=== PATIENT | female | born 1940 | race Caucasian/White ===

== ENCOUNTER → 2017-02-14 | Outpatient (CLI) | payer MEDICARE, OTHER ==
--- NOTE | 2017-02-15 08:48 | US ---
EXAMINATION TYPE: US pelvis complete transvag DATE OF EXAM: 02/14/2017 5:23 PM COMPARISON: Previous study dated 09/10/2014. CLINICAL HISTORY: R10.2 Pelvic Pain. Left pelvic pain TECHNIQUE: Transvaginal (TV) and Transabdominal (TA) Date of LMP: unknown EXAM MEASUREMENTS: Uterus: 5.9 x 3.4 x 3.8 cm Endometrial Stripe: 0.4 cm Right Ovary: 1.2 x 1.5 x 0.5 cm Left Ovary: 2.0 x 1.7 x 1.0 cm TECHNOLOGIST IMPRESSION: 1. Uterus: Anteverted heterogeneous, calcifications noted 2. Endometrium: small amount of fluid noted within 3. Right Ovary: appears wnl, limited due to overlying bowel 4. Left Ovary: appears wnl 5. Bilateral Adnexa: wnl 6. Posterior cul-de-sac: wnl IMPRESSION: HETEROGENOUS UTERUS MAY REPRESENT ADENOMYOSIS.
== END | disposition home or self-care (01) ==
LOC: RADUSWWP 16:24
PROVIDERS: ATTEND Obstetrics & Gynecology
DX: N85.8 Other specified noninflammatory disorders of uterus (principal)
CPT/HCPCS: 76830; 76856

== ENCOUNTER → 2018-04-03 | Outpatient (CLI) | payer MEDICARE, OTHER ==
--- NOTE | 2018-04-04 09:20 | MM ---
Reason for exam: screening (asymptomatic). Last mammogram was performed 5 years and 2 months ago. History: Family history of breast cancer in paternal aunt. Physical Findings: A clinical breast exam by your physician is recommended on an annual basis and results should be correlated with mammographic findings. MG 3D Screening Mammo W/Cad Bilateral CC and MLO view(s) were taken. Prior study comparison: January 23, 2013, left diagnostic mammogram w/CAD. July 22, 2012, bilateral digital screening mammo w/CAD. Stable benign calcifications. There is chronic nodularity in the left breast. No significant changes when compared with prior studies. ASSESSMENT: Benign, BI-RAD 2 RECOMMENDATION: Routine screening mammogram of both breasts in 1 year.
== END | disposition home or self-care (01) ==
LOC: RADMAMWWP 07:06
PROVIDERS: ATTEND Pediatrics
DX: Z12.31 Encounter for screening mammogram for malignant neoplasm of breast (principal)
CPT/HCPCS: 77063; 77067

== ENCOUNTER → 2018-05-06 | Outpatient (CLI) | payer MEDICARE, OTHER ==
--- NOTE | 2018-05-06 10:49 | XR ---
EXAMINATION TYPE: XR ribs LT DATE OF EXAM: 05/06/2018 COMPARISON: NONE HISTORY: Left-sided rib pain TECHNIQUE: 4 views submitted FINDINGS: Arthropathy of the AC joint degenerative and hypertrophic change the spine. Vascular calcif ications noted. Rib cage is intact. IMPRESSION: No acute displaced rib fracture.
== END | disposition home or self-care (01) ==
LOC: RADXRMAIN 10:16
PROVIDERS: ATTEND Nurse Practitioner Family
DX: R07.81 Pleurodynia (principal)

== ENCOUNTER 2018-05-09 10:14 | Day surgery (SDC) | payer MEDICARE, OTHER ==
[2018-05-07 10:58] VITALS: BMI 35.0
[~2018-05-09 10:14] MED LIST: LACTATED RINGERS 1,000 ML IV SCH
[2018-05-09 10:48] VITALS: TEMP 96.9
[2018-05-09] MEDS ORDERED: LIDOCAINE 1% 20 ML VIAL (10MG/ML) FOR IV START INTRADERMA ONE (10:52)
[2018-05-09] MEDS ORDERED: PROPOFOL 10 MG/ML 20 ML VIAL IV ONE (11:19)
[2018-05-09] MEDS ORDERED: MIDAZOLAM 2 MG/2 ML VIAL ONE (11:19)
--- NOTE | 2018-05-09 11:49 | P.PCN ---
Date of Procedure: 05/09/18 Procedure(s) Performed: BRIEF HISTORY: Patient is a 77-year-old pleasant white female, scheduled for an elective colonoscopy as a part of evaluation of prior history of colon polyps. Last colonoscopy was 6 years ago. PROCEDURE PERFORMED: Colonoscopy with snare polypectomy PREOPERATIVE DIAGNOSIS: History of colon polyps. IV sedation per Anesthesia. PROCEDURE: After informed consent was obtained, the patient, was brought into the endoscopy unit. IV sedation was administered by Anesthesia under continuous monitoring. Digital rectal examination was normal. Initially the Olympus CF- 160 flexible video colonoscope was then inserted in the rectum, gradually advanced into the cecum without any difficulty. Careful examination was performed as the scope was gradually being withdrawn. Ileocecal valve and the appendiceal orifice were visualized and appeared normal. Prep was fair. In the base of the cecum there was a 5 mm sessile polyp removed by snare polypectomy. Mucosa of the cecum, ascending colon, transverse colon, descending colon, sigmoid colon, and rectum appeared normal. Retroflexion was performed in the rectum and no lesions were seen. The patient tolerated the procedure well. IMPRESSION: 5 mm sessile cecal polyp status post polypectomy Rest of the colon appeared normal RECOMMENDATIONS: Findings of this examination were discussed with the patient as well as her family. She was advised to follow with the biopsy results..
[2018-05-09 11:56] VITALS: RESP 18
[2018-05-09 12:29] VITALS: BP 118/77; PULSE 78
== END 2018-05-09 12:45 | disposition home or self-care (01) ==
LOC: ORWHC2ENDO 10:14
PROVIDERS: ATTEND Internal Medicine Gastroenterology
DX: Z12.11 Encounter for screening for malignant neoplasm of colon (principal); Z86.010 Personal history of colon polyps; K63.5 Polyp of colon; I25.10 Atherosclerotic heart disease of native coronary artery without angina pectoris; I10 Essential (primary) hypertension; E78.5 Hyperlipidemia, unspecified; I25.2 Old myocardial infarction; J44.9 Chronic obstructive pulmonary disease, unspecified; F17.200 Nicotine dependence, unspecified, uncomplicated; Z79.899 Other long term (current) drug therapy
CPT/HCPCS: 88305; 45385; J2250; J2704

== ENCOUNTER → 2019-02-13 | Outpatient (CLI) | payer MEDICARE, OTHER ==
--- NOTE | 2019-02-13 10:10 | XR ---
EXAMINATION TYPE: XR chest 2V DATE OF EXAM: 02/13/2019 COMPARISON: 07/05/2016 TECHNIQUE: PA and lateral views submitted. HISTORY: Headache FINDINGS: The lungs are clear and there is no pneumothorax, pleural effusion, or focal pneumonia. Postsurgica l change right shoulder. Arthropathy of the left shoulder. Biapical pleural thickening. Hypertrophic and degenerative change of the spine. Hyperinflation suggests COPD. No overt failure. IMPRESSION: 1. No acute process.
[2019-02-13 10:22] LABS: Reticulocyte % 1.4 % (0.5-2.0)
[2019-02-13 16:40] LABS: Iron Saturation 12.64 (12.00-45.00)
[2019-02-13 16:49] LABS: Folate, Serum 5.9 ng/mL
== END | disposition home or self-care (01) ==
LOC: LABWHC1 09:24
PROVIDERS: ATTEND Physician Assistant
DX: D64.9 Anemia, unspecified (principal)
CPT/HCPCS: 36415; 71046; 82607; 82728; 82746; 83540; 83550; 85045

== ENCOUNTER 2019-10-04 12:16 | Inpatient (IN) | payer MEDICARE, OTHER ==
[2019-10-04] MEDS ORDERED: NITROGLYCERIN OINT 1 INCH/GM PACKET TOPICAL STA (12:17)
[2019-10-04] MEDS ORDERED: HEPARIN SODIUM,PORCINE 5,000 UNIT/ML 1 ML VIAL IV STA (12:17)
[2019-10-04] MEDS ORDERED: ATORVASTATIN 80 MG TAB PO STA (12:18)
--- NOTE | 2019-10-04 12:24 | ED ---
General Adult HPI - General Stated complaint: Stemi Time Seen by Provider: 10/04/19 12:16 Source: RN notes reviewed - History of Present Illness Initial comments: This is an 79-year-old female presents to the emergency department because of chest pain. Patient also states she has a long history of smoking as well as high blood pressure. Patient states the pain started about 2 hours prior to arrival. Patient states she received 2 nitroglycerin in route and took her pain away. EMS states that EKG was indicative of an ST segment elevation and they did send me the EKG. Patient currently denies any chest pain. Patient states the pain never did radiate anywhere. Patient denied any shortness of breath today. Patient denies any diaphoretic or nauseated. Patient states she had a heart attack back in 1987 but no stent placement or angioplasty that she knows of. Patient denies any abdominal pain patient's nausea vomiting diarrhea. Patient denies any headache patient denies numbness weakness. Patient denies any lightheadedness or dizziness. Patient currently has no complaints. - Related Data Home Medications Medication Instructions Recorded Confirmed Albuterol Nebulized [Ventolin 1 applic INHALATION DIRECTED PRN 10/05/16 05/09/18 Nebulized] Alendronate Sodium [Fosamax] 70 mg PO MO 10/05/16 05/09/18 Baclofen 10 mg PO BID 10/05/16 05/09/18 Cholecalciferol [Vitamin D3] 1,000 unit PO DAILY 10/05/16 05/09/18 Diclofenac Sodium Gel [Voltaren 1 applic TOPICAL DIRECTED PRN 10/05/16 05/09/18 Gel] Fluticasone Propionate 2 spr EA NOSTRIL DAILY 10/05/16 05/09/18 Gabapentin [Neurontin] 400 mg PO TID 10/05/16 05/09/18 Lisinopril 20 mg PO QAM 10/05/16 05/09/18 Loratadine [Claritin] 10 mg PO DAILY 10/05/16 05/09/18 Metoprolol Succinate [Toprol XL] 25 mg PO QAM 10/05/16 05/09/18 Montelukast [Singulair] 10 mg PO HS 10/05/16 05/09/18 Tiotropium 18 Mcg/Puff [Spiriva] 1 puff INHALATION HS 10/05/16 05/09/18 Allergies Allergy/AdvReac Type Severity Reaction Status Date / Time No Known Allergies Allergy Verified 10/04/19 12:34 Review of Systems ROS Statement: Those systems with pertinent positive or pertinent negative responses have been documented in the HPI. ROS Other: All systems not noted in ROS Statement are negative. Past Medical History Past Medical History: Asthma, COPD, Hypertension, Myocardial Infarction ([place]), Osteoarthritis (OA) Additional Past Medical History / Comment(s): History of mild stroke in 1987; hx of osteoporosis, back pain Last Myocardial Infarction Date:: 1987 History of Any Multi-Drug Resistant Organisms: None Reported Past Surgical History: Appendectomy, Orthopedic Surgery, Tubal Ligation Additional Past Surgical History / Comment(s): rt rotator cuff, [place] cataracts Past Anesthesia/Blood Transfusion Reactions: No Reported Reaction Smoking Status: Current some day smoker - Past Family History Sister(s) Family Medical History: Cancer Additional Family Medical History / Comment(s): ovarian Brother(s) Family Medical History: Deep Vein Thrombosis (DVT) General Exam - General Exam Comments Initial Comments: GENERAL: Patient is well-developed and well-nourished. Patient is nontoxic and well- hydrated and is in no acute distress. ENT: Neck is soft and supple. No significant lymphadenopathy is noted. Oropharynx is clear. Moist mucous membranes. Neck has full range of motion without eliciting any pain. EYES: The sclera were anicteric and conjunctiva were pink and moist. Extraocular movements were intact and pupils were equal round and reactive to light. Eyelids were unremarkable. PULMONARY: Unlabored respirations. Good breath sounds bilaterally. No audible rales rhonchi or wheezing was noted. CARDIOVASCULAR: There is a regular rate and rhythm without any murmurs gallops or rubs. ABDOMEN: Soft and nontender with normal bowel sounds. SKIN: Skin is clear with no lesions or rashes and otherwise unremarkable. NEUROLOGIC: Patient is alert and oriented x3. Cranial nerves II through XII are grossly intact. Motor and sensory are also intact. Normal speech, volume and content. Symmetrical smile. MUSCULOSKELETAL: Normal extremities with adequate strength and full range of motion. No lower extremity swelling or edema. No calf tenderness. LYMPHATICS: No significant lymphadenopathy is noted PSYCHIATRIC: Normal psychiatric evaluation. Course Vital Signs 10/04/19 10/04/19 10/04/19 12:19 12:24 12:33 Temperature 97.9 F Pulse Rate 77 74 Respiratory 18 18 20 Rate Blood Pressure 110/84 111/89 O2 Sat by Pulse 98 100 Oximetry 10/04/19 10/04/19 10/04/19 12:38 12:42 12:46 Temperature Pulse Rate 71 73 72 Respiratory 20 22 20 Rate Blood Pressure 187/97 173/99 155/117 O2 Sat by Pulse 99 99 99 Oximetry 10/04/19 12:50 Temperature Pulse Rate 67 Respiratory 18 Rate Blood Pressure 167/92 O2 Sat by Pulse 99 Oximetry Medical Decision Making - Medical Decision Making EKG shows normal sinus rhythm at 75 bpm DC interval is 130 QRS is 74 QT interval 380 QTC is 424. Patient has ST segment elevation in the inferior leads II, III, and F aVF and ST segment depression in leads V1 and V2 as well as 1 and aVL. I called a STEMI prior to the patient's arrival because I received a EKG was consistent with an SC. I spoke with Dr. Holliday and he stated he would come down and see the patient and take the patient to the Screening Nurse. When patient arrived I placed the patient on heparin. The patient Lipitor and gave the patient some Nitropaste at this time because she was pain-free. I spoke with Dr. Garcia agreed to admit the patient admitted the patient wrote admitting orders I consulted - Lab Data Result diagrams: 10/04/19 12:35 Critical Care Time Critical Care Time: Yes Total Critical Care Time: 35 Disposition Clinical Impression: STEMI (ST elevation myocardial infarction) Disposition: ADMITTED IP TO THIS [facility] Time of Disposition: 12:52
[2019-10-04] MEDS ORDERED: SODIUM CHLORIDE 0.9% 500 ML 500 ML IV ONE (12:37)
--- NOTE | 2019-10-04 12:47 | XR ---
EXAMINATION TYPE: XR chest 1V portable DATE OF EXAM: 10/04/2019 HISTORY: Chest Pain. REFERENCE: Previous study dated 02/13/2019. FINDINGS: The heart is enlarged. Lungs are clear. Pleural spaces are clear. Note is made of previous rotator cuff surgery on the right shoulder. IMPRESSION: MILD CARDIOMEGALY.
[2019-10-04 12:48] LABS: Basophils # (A) 0.1 k/uL (0-0.2); Basophils % (A) 1 %; Eosinophils # (A) 0.2 k/uL (0-0.7); Eosinophils % (A) 2 %; HCT 31.5 % (34.0-46.0); HGB 10.2 gm/dL (11.4-16.0); Hypochromasia Slight; Lymphocytes # (A) 1.7 k/uL (1.0-4.8); Lymphocytes % (A) 19 %; MCH 30.6 pg (25.0-35.0); MCHC 32.3 g/dL (31.0-37.0); MCV 94.7 fL (80.0-100.0); Mean Platelet Volume 5.4; Monocytes # (A) 0.5 k/uL (0-1.0); Monocytes % (A) 6 %; Neutrophils # (A) 6.3 k/uL (1.3-7.7); Neutrophils % (A) 70 %; Platelet Count 258 k/uL (150-450); RBC 3.33 m/uL (3.80-5.40); RDW 14.5 % (11.5-15.5)
[2019-10-04 13:00] LABS: ALT 23 U/L (9-52); AST 22 U/L (14-36); African American GFR (CKD) >90 (>60 ml/min/1.73 sqM); Albumin 3.7 g/dL (3.5-5.0); Alkaline Phosphatase 41 U/L (38-126); Anion Gap 7 mmol/L; Blood Urea Nitrogen 17 mg/dL (7-17); Calcium 9.1 mg/dL (8.4-10.2); Carbon Dioxide 23 mmol/L (22-30); Chloride 110 mmol/L (98-107); Glucose 132 mg/dL (74-99); Potassium 4.1 mmol/L (3.5-5.1); Sodium 140 mmol/L (137-145); Total Bilirubin 0.5 mg/dL (0.2-1.3); Total Protein 6.3 g/dL (6.3-8.2)
[2019-10-04 13:02] LABS: INR 0.9 (<1.2); Prothrombin Time 9.8 sec (9.0-12.0)
[2019-10-04 13:03] LABS: Partial Thromboplastin Time 21.4 sec (22.0-30.0)
[2019-10-04 13:17] LABS: Troponin I 0.032 ng/mL (0.000-0.034)
[2019-10-04] MEDS ORDERED: MIDAZOLAM 2 MG/2 ML VIAL IVP ONE (13:31)
[2019-10-04] MEDS ORDERED: LIDOCAINE 1% INJ 10MG/ML (20 ML MDV) SQ ONE (13:31)
[2019-10-04] MEDS ORDERED: VERAPAMIL SYRINGE (5 MG/10 ML) INTRAARTER ONE (13:32)
[2019-10-04] MEDS ORDERED: SODIUM CHLORIDE 0.9% 1,000 ML IV ONE (13:38)
[2019-10-04] MEDS ORDERED: TICAGRELOR 90 MG TAB ONE (13:45)
[2019-10-04] MEDS ORDERED: BIVALIRUDIN BOLUS 250 MG/50 ML IV ONE (13:47)
[2019-10-04] MEDS ORDERED: BIVALIRUDIN 250 MG in SODIUM CHLORIDE 0.9% 50 ML IV ONE (13:47)
[2019-10-04] MEDS ORDERED: IOPAMIDOL-370 100ML BTL INJ ONE ×2 (13:50→14:02)
[2019-10-04] MEDS ORDERED: NITROGLYCERIN 1000MCG/10ML SYRINGE INTRACORON ONE (13:53)
[2019-10-04] MEDS ORDERED: TICAGRELOR 90 MG TAB PO ONE (14:00)
[2019-10-04] MEDS ORDERED: ATROPINE SULFATE 0.1 MG/ML 10ML SYRINGE IV PRN (14:05)
[2019-10-04] MEDS ORDERED: RX INFO: IV CONTRAST WAS GIVEN 1 EACH MISC MISCELLANE PRN (14:05)
[2019-10-04] MEDS ORDERED: MAG HYDROX/AL HYDROX/SIMETH 30 ML CUP PO PRN (14:05)
[2019-10-04] MEDS ORDERED: NITROGLYCERIN SL TABS 0.4 MG TAB SUBLINGUAL PRN (14:05)
[2019-10-04 14:37] LABS: Glucose,Whole Blood 114 mg/dL (75-99)
--- NOTE | 2019-10-04 14:37 | CONS ---
CONSULTATION This is an 79-year-old elderly lady who has history of hypertension, no diabetes, smokes about 1 pack a day or more, takes Toprol-XL and Lipitor. She came into the hospital brought in by EMS after we received a phone call from [facility] saying patient had chest pain with inferior ST elevation. The patient took about 50 minutes to arrive here. In the meantime we were doing another procedure and therefore she was kept in the ER for 10 to 15 additional minutes. Upon arrival her pain was gone, ST-segment elevation has improved. She received sublingual nitroglycerin. She is pain-free at the time of my evaluation. Apparently she was not doing much physical activity when she experienced pressure in the chest when she was sitting down that seemed to rest and remain constant for 20-30 minutes and then they called EMS. She does smoke, has hypertension, but no other risk factors. She is pain free at this time. Hemodynamically stable. PAST MEDICAL HISTORY: 1. Hypertension. 2. Hyperlipidemia. 3. Smoking and COPD. MEDICATIONS: Lipitor and Toprol, dose unclear. ALLERGIES: No known drug allergies. PHYSICAL EXAMINATION: Blood pressure is 150/90, pulse rate is 80 per minute, regular HEENT unremarkable. Fundus was not examined by me. Neck is supple. No JVD. I do not hear a carotid bruit. There is no thyromegaly. Heart exam reveals S1, S2 heard normally. No significant murmurs. Lungs are clear. Abdomen is soft, nontender. Lower extremities reveal palpable pulses. No edema. Central nervous system is normal. EKG revealed a sinus mechanism with ST elevation in leads 2, 3 and AVF. IMPRESSION: 1. Acute inferior ST-elevation myocardial infarction. 2. Smoking and chronic obstructive pulmonary disease. 3. Hypertension. 4. Hyperlipidemia. RECOMMENDATION: I advised prompt cardiac cath and PCI and proceeded to perform procedure expeditiously. MMODL / IJN: [id number] /
--- NOTE | 2019-10-04 15:13 | CC ---
CARDIAC CATHETERIZATION REPORT DATE OF SERVICE: 10/04/2019. PROCEDURE: 1. Coronary angiography. 2. PTCA and stenting of a totally occluded proximal RCA performed in the setting of an acute inferior ST-elevation NC with reperfusion accomplished in 87 minutes. PERFORMED BY: Dr. Preet Holliday. SEDATION: Moderate conscious sedation time was 29 minutes. Patient was administered Versed. Oxygen saturation, hemodynamics and EKG were monitored closely. CLINICAL INFORMATION: Mrs. Sonja Lizarraga is an 79-year-old lady with a history of smoking, hypertension, hyperlipidemia, came into the hospital brought in by EMS with chest pain and inferior ST elevation. She was seen by me in the laboratory specialist and advised prompt cardiac catheterization. PROCEDURE NOTE: Under local anesthesia and strict aseptic precautions, a 6-Cypriot introducer was placed in the right radial artery. Using a JL3.5 catheter, I performed selective coronary angiography of the left coronary system. I then used a JR4 6-Cypriot guide catheter to cannulate the RCA. I then proceeded to perform intervention of the totally occluded RCA in the same setting. I did not check LV pressures. I did not do an LV-gram. The patient received Angiomax bolus and infusion as per protocol. She also received 180 mg of Brilinta. TRAIN PLANNER PROCEDURE DETAILS: A 6-Cypriot right Luisito guide catheter was used to cannulate the right coronary artery. I used a run-through wire to cross the lesion. Predilatation was performed with a 2.5 caliber 12 mm Trek balloon. There was a small flap at the distal end of the lesion or the thrombus. The entire area was then stented using a 2.5 caliber 23 mm long Xience stent at 10 atmospheres. Excellent angiographic result without complication was achieved. The sheath was taken out and TR band applied as per protocol with good hemostasis and saturation of the fingers of the right hand was 95%. Results were discussed with the patient and her friend and she was sent to the room in a stable condition. CORONARY ANGIOGRAPHY FINDINGS: LEFT MAIN CORONARY ARTERY: This is a patent vessel. No significant disease. Large caliber, bifurcates into LAD and circumflex. LEFT ANTERIOR DESCENDING CORONARY ARTERY: Good caliber vessel extends along the anterior wall. It gives off a large diagonal branch proximally. Then there is a long area of disease of up to 70-80 percent, significant, but not critical and then the vessel runs all the way to the apex and curves over the apex to supply the inferoapical portion of left ventricle. The major diagonal branch comes off from the LAD and supplies a sizable amount of myocardium. It is very tortuous and a good caliber and good distribution vessel. The stenosis in the LAD is located right after the origin of the diagonal branch. LEFT POSTERIOR CIRCUMFLEX CORONARY ARTERY: Technically a dominant vessel, gives off a large obtuse marginal proximally than distally gives off a large PDA branch which feeds off of a lot of septal branches. No significant disease in the circumflex dominant system. RIGHT CORONARY ARTERY: This is a nondominant vessel, totally occluded, seen as a stump without much antegrade flow. FINAL IMPRESSION: This patient has a left dominant system, total occlusion of the RCA. PDA branch comes off from circumflex. LAD has a 75% mid lesion after major diagonal branch in a moderately calcified area. The circumflex is dominant disease-free. RCA is totally occluded. RECOMMENDATION: I performed PCI of RCA in the same setting with excellent angiographic result. PCI of the LAD will be performed in the next couple of weeks. The patient was advised smoking cessation, risk factor modification and dual antiplatelet therapy. MMODL / IJN: [id number] /
[2019-10-04] MEDS: SODIUM CHLORIDE 0.9% 1,000 ML IV SCH (18:35)
[2019-10-04] MEDS: METOPROLOL TARTRATE 25 MG TAB PO SCH (20:35)
[2019-10-04] MEDS: ZOLPIDEM 5 MG TAB PO PRN (20:36)
[2019-10-04] MEDS: LISINOPRIL 10 MG TAB PO SCH (20:36)
--- NOTE | 2019-10-04 21:32 | P.HPIM ---
History of Present Illness H&P Date: 10/04/19 Chief Complaint: Chest Pain History of presenting complaint: This is a very pleasant 79-year-old patient of Dr. Heriberto Thayer. Chronic stable medical conditions include COPD, hypertension, osteoarthritis, osteoporosis. Patient sitting upon a chair and started feeling indigestion. It did not go away and progressed to get worse. Started having nausea. [place] like a chest p ressure precordial area. No dizziness no lightheadedness. Did not radiate to the neck or arm. Patient did precortisol. Symptoms would last for about 30 minutes she told her fianc. To take her to the hospital. Patient ruled for an acute ST elevation [place] of the inferior wall. Taken to the cardiac catheterization lab. Had a successful electrical she stated to the RCA. Currently admitted to the ICU. Currently chest pain-free Review of systems: GEN.: Tired EYES: None HEENT: None NECK: None RESPIRATORY: Occasional wheezing CARDIOVASCULAR: Has about GASTROINTESTINAL: None GENITOURINARY: None MUSCULOSKELETAL: None LYMPHATICS: None HEMATOLOGICAL: None PSYCHIATRY: None NEUROLOGICAL: None Social history: Smokes a pack a day for over 60 years. Lives with her harvey. Physical examination: VITAL SIGNS: 97.9, 77, 18, 110/84, 98% room air GENERAL: BMI 32.1, laying in bed, awake not in distress. EYES: Pupils equal. Conjunctiva normal. HEENT: External appearance of nose and ears normal, oral cavity grossly normal. NECK: JVD not raised; masses not palpable. HEART: First and second heart sounds are normal; no edema. LUNGS: Respiratory rate normal; decreased breath sounds mild wheezing. ABDOMEN: Soft, nontender, liver spleen not palpable, no masses palpable. PSYCH: Alert and oriented x3; mood and affect normal. NEUROLOGICAL: Cranial nerves grossly intact; no facial asymmetry, power and sensation grossly intact. LYMPHATICS: No lymph nodes palpable in the axilla and neck INVESTIGATIONS, reviewed in the clinical context: White count 9 hemoglobin 10.2 platelets 258 potassium 4.1 creatinine 0.61 Troponin I 0.032, crit 5.1 EKG tracing personally reviewed by me-ST elevation in inferior leads with reciprocal changes in anterior leads Chest x-ray film personally reviewed by me-up at country exposed possible pulmonary edema Assessment: -Acute ST elevation acute myocardial infarction inferior wall -Urgent cardiac catheterization with stent to the RCA -Obesity BMI 32.1 -COPD in a current smoker -Chronic nicotine dependence patient is a cigarette smoker -Essential hypertension -Primary osteoarthritis Plan: Patient is currently on aspirin and Zestril Lopressor Brilinta. Home medications resumed. Care was discussed with the patient. Question were answered. Smoke cessation counseling: This was done with the patient. Nicotine patch is being given. More than 3 minutes was spent for this Past Medical History Past Medical History: Asthma, COPD, Hypertension, Myocardial Infarction ([place]), Osteoarthritis (OA) Additional Past Medical History / Comment(s): History of mild stroke in 1987; hx of osteoporosis, back pain Last Myocardial Infarction Date:: 1987 History of Any Multi-Drug Resistant Organisms: None Reported Past Surgical History: Appendectomy, Orthopedic Surgery, Tubal Ligation Additional Past Surgical History / Comment(s): rt rotator cuff, [place] cataracts Past Anesthesia/Blood Transfusion Reactions: No Reported Reaction Past Psychological History: No Psychological Hx Reported Smoking Status: Current every day smoker Past Alcohol Use History: None Reported Additional Past Alcohol Use History / Comment(s): states 1ppd on and off since age 16 (1955) Past Drug Use History: None Reported - Past Family History Sister(s) Family Medical History: Cancer Additional Family Medical History / Comment(s): ovarian Brother(s) Family Medical History: Deep Vein Thrombosis (DVT) Medications and Allergies Home Medications Medication Instructions Recorded Confirmed Type Gabapentin [Neurontin] 300 mg PO TID 10/05/16 10/04/19 History Lisinopril 20 mg PO QAM 10/05/16 10/04/19 History Loratadine [Claritin] 10 mg PO DAILY 10/05/16 10/04/19 History Metoprolol Succinate [Toprol XL] 25 mg PO QAM 10/05/16 10/04/19 History Baclofen 10 mg PO BID 10/04/19 10/04/19 History Cholecalciferol [Vitamin D3 (25 1 tab PO DAILY 10/04/19 10/04/19 History Mcg = 1000 Iu)] Allergies Allergy/AdvReac Type Severity Reaction Status Date / Time No Known Allergies Allergy Verified 10/04/19 12:34 Physical Exam Vitals: Vital Signs Temp Pulse Resp BP Pulse Ox 10/04/19 19:00 76 20 133/58 97 10/04/19 18:30 12 127/65 98 10/04/19 18:00 76 14 118/57 98 10/04/19 17:30 77 25 H 134/54 97 10/04/19 17:00 65 8 L 134/54 98 10/04/19 16:30 72 20 112/83 98 10/04/19 16:00 71 29 H 112/83 97 10/04/19 15:30 66 8 L 112/83 98 10/04/19 15:00 74 14 112/83 98 10/04/19 14:45 68 9 L 112/83 96 10/04/19 14:30 69 12 140/73 98 10/04/19 14:21 97.5 F L 70 20 97 10/04/19 13:05 66 18 169/97 100 10/04/19 13:00 65 18 171/101 99 10/04/19 12:55 68 20 173/100 100 10/04/19 12:50 67 18 167/92 99 10/04/19 12:46 72 20 155/117 99 10/04/19 12:42 73 22 173/99 99 10/04/19 12:38 71 20 187/97 99 10/04/19 12:33 74 20 111/89 100 10/04/19 12:24 18 110/84 98 10/04/19 12:19 97.9 F 77 18 Intake and Output 10/04/19 10/04/19 10/04/19 06:59 14:59 22:59 Intake Total 150 375 Output Total 550 Balance 150 -175 Intake: IV 150 375 NS 375 Output: Urine 550 Other: # Voids 1 Weight 82.1 kg Results CBC & Chem 7: 10/04/19 12:35 10/04/19 12:35 Labs: Abnormal Lab Results - Last 24 Hours (Table) 10/04/19 10/04/19 10/04/19 Range/Units 12:35 12:35 12:35 RBC 3.33 L (3.80-5.40) m/uL Hgb 10.2 L (11.4-16.0) gm/dL Hct 31.5 L (34.0-46.0) % APTT 21.4 L (22.0-30.0) sec Chloride 110 H (98-107) mmol/L Glucose 132 H (74-99) mg/dL POC Glucose (mg/dL) (75-99) mg/dL Troponin I (0.000-0.034) ng/mL 10/04/19 10/04/19 Range/Units 14:25 18:28 RBC (3.80-5.40) m/uL Hgb (11.4-16.0) gm/dL Hct (34.0-46.0) % APTT (22.0-30.0) sec Chloride (98-107) mmol/L Glucose (74-99) mg/dL POC Glucose (mg/dL) 114 H (75-99) mg/dL Troponin I 25.100 H* (0.000-0.034) ng/mL Thrombosis Risk Factor Assmnt - Choose All That Apply Any of the Below Risk Factors Present?: Yes Each Factor Represents 1 point: Abnormal pulmonary function (COPD), Acute [place] Other Risk Factors: No Other congenital or acquired thrombophilia - If yes, enter type in comment: No Thrombosis Risk Factor Assessment Total Risk Factor Score: 2 Thrombosis Risk Factor Assessment Level: Low Risk
[2019-10-04] MEDS: GABAPENTIN 300 MG CAP PO SCH (21:49)
[2019-10-04] MEDS: BACLOFEN 10 MG TAB PO SCH (21:49)
[2019-10-04] MEDS: NICOTINE 21MG/24HR PATCH TRANSDERM SCH (21:49)
[2019-10-05] MEDS: SODIUM CHLORIDE 0.9% 1,000 ML IV SCH (03:45)
[2019-10-05 04:52] LABS: Basophils % (A) 1 %; Eosinophils # (A) 0.2 k/uL (0-0.7); Eosinophils % (A) 3 %; HGB 9.2 gm/dL (11.4-16.0); Hypochromasia Slight; Lymphocytes # (A) 1.6 k/uL (1.0-4.8); Lymphocytes % (A) 21 %; MCHC 31.6 g/dL (31.0-37.0); MCV 94.9 fL (80.0-100.0); Mean Platelet Volume 6.2; Monocytes # (A) 0.5 k/uL (0-1.0); Monocytes % (A) 6 %; Neutrophils # (A) 5.2 k/uL (1.3-7.7); Neutrophils % (A) 69 %; Platelet Count 242 k/uL (150-450); RBC 3.06 m/uL (3.80-5.40); RDW 14.5 % (11.5-15.5); WBC 7.6 k/uL (3.8-10.6)
[2019-10-05 05:03] LABS: African American GFR (CKD) >90 (>60 ml/min/1.73 sqM); Anion Gap 3 mmol/L; Blood Urea Nitrogen 11 mg/dL (7-17); Calcium 9.1 mg/dL (8.4-10.2); Carbon Dioxide 26 mmol/L (22-30); Chloride 109 mmol/L (98-107); Glucose 109 mg/dL (74-99); Sodium 138 mmol/L (137-145)
[2019-10-05 05:34] LABS: Potassium 4.1 mmol/L (3.5-5.1)
[2019-10-05] MEDS: TICAGRELOR 90 MG TAB PO SCH ×3 (06:03→21:21)
[2019-10-05] MEDS: GABAPENTIN 300 MG CAP PO SCH ×3 (09:28→21:22)
[2019-10-05] MEDS: BACLOFEN 10 MG TAB PO SCH ×2 (09:28→21:22)
[2019-10-05] MEDS: ASPIRIN 81 MG PO SCH (09:28)
[2019-10-05] MEDS: METOPROLOL TARTRATE 25 MG TAB PO SCH ×2 (09:29→21:21)
[2019-10-05] MEDS: LISINOPRIL 10 MG TAB PO SCH (09:29)
[2019-10-05] MEDS: NICOTINE 21MG/24HR PATCH TRANSDERM SCH (09:30)
[2019-10-05 10:45] VITALS: BMI 34.5
[2019-10-05 12:34] LABS: Cholesterol 121 mg/dL (<200); HDL Cholesterol 41 mg/dL (40-60); LDL Cholesterol,Calculated 63 mg/dL (0-99); Triglycerides 86 mg/dL (<150)
--- NOTE | 2019-10-05 14:28 | PN ---
PROGRESS NOTE Sonja is an 79-year-old lady that is admitted to hospital with acute inferior wall myocardial infarction. She underwent cardiac catheterization and angioplasty with stent placement of right coronary artery. The patient has a 75% lesion in the mid LAD and will undergo staged angioplasty upon discharge. This morning, she is doing well and is free of symptoms. Denies chest pain or difficulty in breathing. EXAM: Comfortable at rest. Vital signs are stable. Chest exam reveals good air entry bilaterally. Heart exam reveals first and second heart sounds. No gallop. Exam of extremities did not reveal any edema. Right radial artery access site appears normal. Labs show a hemoglobin of 9.2, platelet count of 240. Potassium is 4.1. Creatinine is 0.56. The peak troponin was 25. MEDICATIONS: Include aspirin, Neurontin, Zestril 10 daily, Lopressor 25 b.i.d., Brilinta and Ambien. We will start the patient on a statin. Echo is pending at this time. ASSESSMENT: Acute inferior wall myocardial infarction status post catheterization and angioplasty of right coronary artery. The patient is doing well this morning. We can transfer her out of ICU and we will obtain lipid profile and start her on statins. MMODL / IJN: [id number] /
--- NOTE | 2019-10-05 20:43 | P.PN ---
Progress Note - Text Progress Note Date: 10/05/19 Chief Complaint: Chest Pain History of presenting complaint: This is a very pleasant 79-year-old patient of Dr. Heriberto Thayer. Chronic stable medical conditions include COPD, hypertension, osteoarthritis, osteoporosis. Patient sitting upon a chair and started feeling indigestion. It did not go away and progressed to get worse. Started having nausea. [place] like a chest pressure precordial area. No dizziness no lightheadedness. Did not radiate to the neck or arm. Patient did precortisol. Symptoms would last for about 30 minutes she told her fianc. To take her to the hospital. Patient ruled for an acute ST elevation [place] of the inferior wall. Taken to the cardiac catheterization lab. Had a successful electrical she stated to the RCA. admitted to the ICU. Patient also is a 75% lesion to the LAD. This will be addressed later stage. Today-in the ICU. Has been up to the chair. No chest pain no shortness of breath. Did tolerate her diet. Family the bedside. Review of systems: Was done for constitutional, cardiovascular, GI, pulmonary. relevant finding as above Active Medications Al Hydroxide/Mg Hydroxide (Maalox) 30 ml PO Q4HR PRN PRN Reason: Heartburn Aspirin (Aspirin) 81 mg PO DAILY [facility] Last Admin: 10/05/19 09:28 Dose: 81 mg Documented by: Atorvastatin Calcium (Lipitor) 80 mg PO HS [facility] Atropine Sulfate (Atropine) 0.5 mg IV ONCE PRN PRN Reason: Symptomatic Bradycardia Baclofen (Lioresal) 10 mg PO BID [facility] Last Admin: 10/05/19 09:28 Dose: 10 mg Documented by: Gabapentin (Neurontin) 300 mg PO TID [facility] Last Admin: 10/05/19 17:23 Dose: 300 mg Documented by: Lisinopril (Zestril) 10 mg PO DAILY [facility] Last Admin: 10/05/19 09:29 Dose: 10 mg Documented by: Metoprolol Tartrate (Lopressor) 25 mg PO BID [facility] Last Admin: 10/05/19 09:29 Dose: 25 mg Documented by: Miscellaneous Information (Rx Info: Iv Contrast Was Given) 1 each MISCELLANE DAILY PRN PRN Reason: Per Protocol Stop: 10/06/19 14:05 Nicotine (Habitrol 21mg/24hr Patch) 1 patch TRANSDERM DAILY [facility] Last Admin: 10/05/19 09:30 Dose: 1 patch Documented by: Nitroglycerin (Nitrostat) 0.4 mg SUBLINGUAL Q5M PRN PRN Reason: Chest Pain Ticagrelor (Brilinta) 90 mg PO BID [facility] Last Admin: 10/05/19 09:29 Dose: Not Given Documented by: Zolpidem Tartrate (Ambien) 5 mg PO HS PRN PRN Reason: Insomnia Last Admin: 10/04/19 20:36 Dose: 5 mg Documented by: Physical examination: VITAL SIGNS: 98.3, 81, 9, 144/95, 94% room air GENERAL: Laying in bed, comfortable. EYES: Pupils equal. Conjunctiva normal. HEENT: External appearance of nose and ears normal, oral cavity grossly normal. NECK: JVD not raised; masses not palpable. HEART: First and second heart sounds are normal; no edema. LUNGS: Respiratory rate normal; decreased breath sounds ABDOMEN: Soft, nontender, liver spleen not palpable, no masses palpable. PSYCH: Alert and oriented x3; mood and affect normal. INVESTIGATIONS, reviewed in the clinical context: White count [age]-year-old woman 9.2 potassium 4.1 creatinine 0.56 Previous testing: White count 9 hemoglobin 10.2 platelets 258 potassium 4.1 creatinine 0.61 Troponin I 0.032, crit 5.1 EKG tracing personally reviewed by me-ST elevation in inferior leads with reciprocal changes in anterior leads Chest x-ray film personally reviewed by me-up at country exposed possible pulmonary edema Assessment: -Acute ST elevation acute myocardial infarction inferior wall -Urgent cardiac catheterization with stent to the RCA -75% lesion of the LAD, for intervention down the road -Obesity BMI 32.1 -COPD in a current smoker -Chronic nicotine dependence patient is a cigarette smoker -Essential hypertension -Primary osteoarthritis Plan: Continue current medication treatment plan. Cardiology will decide whether they go to intervene of the angioplasty stenting to the LAD. Care was discussed with the patient. Again reminded about smoking cessation.
[2019-10-05] MEDS: ATORVASTATIN 80 MG TAB PO SCH (21:22)
[2019-10-05] MEDS: ZOLPIDEM 5 MG TAB PO PRN (21:26)
[2019-10-06 05:33] LABS: Basophils % (A) 0 %; Eosinophils # (A) 0.2 k/uL (0-0.7); Eosinophils % (A) 3 %; HGB 8.8 gm/dL (11.4-16.0); Hypochromasia Slight; Lymphocytes # (A) 1.9 k/uL (1.0-4.8); Lymphocytes % (A) 24 %; MCH 29.4 pg (25.0-35.0); MCHC 31.4 g/dL (31.0-37.0); MCV 93.6 fL (80.0-100.0); Mean Platelet Volume 5.5; Monocytes # (A) 0.5 k/uL (0-1.0); Monocytes % (A) 6 %; Neutrophils # (A) 5.2 k/uL (1.3-7.7); Neutrophils % (A) 64 %; Platelet Count 237 k/uL (150-450); RBC 2.99 m/uL (3.80-5.40); RDW 14.7 % (11.5-15.5)
[2019-10-06 05:42] LABS: African American GFR (CKD) >90 (>60 ml/min/1.73 sqM); Anion Gap 4 mmol/L; Blood Urea Nitrogen 13 mg/dL (7-17); Calcium 9.2 mg/dL (8.4-10.2); Carbon Dioxide 26 mmol/L (22-30); Chloride 108 mmol/L (98-107); Glucose 107 mg/dL (74-99); Sodium 138 mmol/L (137-145)
[2019-10-06] MEDS: BACLOFEN 10 MG TAB PO SCH ×2 (09:31→21:26)
[2019-10-06] MEDS: ASPIRIN 81 MG PO SCH (09:31)
[2019-10-06] MEDS: GABAPENTIN 300 MG CAP PO SCH ×3 (09:31→21:26)
[2019-10-06] MEDS: HEPARIN SODIUM,PORCINE 5,000 UNIT/ML 1 ML VIAL SQ SCH ×2 (09:31→21:28)
[2019-10-06] MEDS: METOPROLOL TARTRATE 25 MG TAB PO SCH ×2 (09:32→21:27)
[2019-10-06] MEDS: TICAGRELOR 90 MG TAB PO SCH ×2 (09:32→21:27)
[2019-10-06] MEDS: LISINOPRIL 10 MG TAB PO SCH (09:32)
[2019-10-06] MEDS: NICOTINE 21MG/24HR PATCH TRANSDERM SCH (09:32)
--- NOTE | 2019-10-06 09:59 | PN ---
PROGRESS NOTE Sonja is admitted to hospital with acute inferior wall myocardial infarction. She is doing well, free of chest pain, has a lesion in the LAD that will be addressed down the road. On exam, comfortable at rest. Vital signs are stable. There is no jugular venous distention. Chest exam reveals good air entry bilaterally. Heart exam reveals first and second heart sounds. No gallop. Examination of the extremities reveals mild edema. Peripheral pulses are felt. LABS: Labs show that the hemoglobin is 8.8, platelet count is normal. ASSESSMENT: Acute inferior wall myocardial infarction. PLAN: Patient is doing well. We will continue with her current medications. The patient had an echo. Results are not available in the system yet. MMODL / IJN: [id number] /
--- NOTE | 2019-10-06 10:01 | ECHOF ---
Referral Reason:Acute Inf STEMi, RCA PCI MEASUREMENTS -------- HEIGHT: 160.0 cm WEIGHT: 88.0 kg BP: 117/63 RVIDd: 3.1 cm (< 3.3) IVSd: 1.1 cm (0.6 - 1.1) LVIDd: 4.2 cm (3.9 - 5.3) LVPWd: 1.4 cm (0.6 - 1.1) IVSs: 1.3 cm LVIDs: 3.6 cm LVPWs: 1.5 cm LA Diam: 3.2 cm (2.7 - 3.8) LAESV Index (A-L): 23.76 ml/m Ao Diam: 2.3 cm (2.0 - 3.7) AV Cusp: 1.9 cm (1.5 - 2.6) LA Diam: 3.6 cm (2.7 - 3.8) MV EXCURSION: 14.230 mm (> 18.000) MV EF SLOPE: 55 mm/s (70 - 150) EPSS: 0.6 cm MV E Flo: 0.58 m/s MV DecT: 179 ms MV A Flo: 1.12 m/s MV E/A Ratio: 0.52 RAP: 5.00 mmHg RVSP: 24.76 mmHg FINDINGS -------- Undetermined rhythm. This was a technically adequate study. The left ventricular size is normal. Left ventricular wall thickness is normal. Overall left vent ricular systolic function is mildly impaired with, an EF between 45 - 50 %. Basal inferior LV wall motion is hypokinetic. Mid inferoseptal LV wall motion is hypokinetic. The right ventricle is normal in size. The left atrial size is normal. Normal LA size by volume 22+/-6 ml/m2. The right atrial size is normal. There is mild aortic valve sclerosis. There is no evidence of aortic regurgitation. Mild mitral annular calcification present. Mild mitral regurgitation is present. Mild tricuspid regurgitation present. Right ventricular systolic pressure is normal at < 35 mmHg. There is no evidence of pulmonary hypertension. There is no pulmonic regurgitation present. The aortic root size is normal. Echo free space represents a pericardial fat pad. CONCLUSIONS -------- 1. Undetermined rhythm. 2. This was a technically adequate study. 3. The left ventricular size is normal. 4. Left ventricular wall thickness is normal. 5. The right ventricle is normal in size. 6. The left atrial size is normal. 7. Normal LA size by volume 22+/-6 ml/m2. 8. The right atrial size is normal. 9. There is mild aortic valve sclerosis. 10. Mild mitral annular calcification present. 11. Mild mitral regurgitation is present. 12. Mild tricuspid regurgitation present. 13. Right ventricular systolic pressure is normal at < 35 mmHg. 14. There is no evidence of pulmonary hypertension. 15. There is no pulmonic regurgitation present. 16. The aortic root size is normal. 17. Echo free space represents a pericardial fat pad. NURSING EDUCATION SPECIALIST: Joaquina Lombardo RDCS
--- NOTE | 2019-10-06 20:50 | P.PN ---
Progress Note - Text Progress Note Date: 10/06/19 Chief Complaint: Chest Pain History of presenting complaint: This is a very pleasant 79-year-old patient of Dr. Heriberto Thayer. Chronic stable medical conditions include COPD, hypertension, osteoarthritis, osteoporosis. Patient sitting upon a chair and started feeling indigestion. It did not go away and progressed to get worse. Started having nausea. [place] like a chest pressure precordial area. No dizziness no lightheadedness. Did not radiate to the neck or arm. Patient did precortisol. Symptoms would last for about 30 minutes she told her fianc. To take her to the hospital. Patient ruled for an acute ST elevation [place] of the inferior wall. Taken to the cardiac catheterization lab. Had a successful electrical she stated to the RCA. admitted to the ICU. Patient also is a 75% lesion to the LAD. This will be addressed later stage. Today-in the ICU. No new issues. No chest pain. No shortness of breath. Has been out of bed. Seen by cardiology.. Review of systems: Was done for constitutional, cardiovascular, GI, pulmonary. relevant finding as above Active Medications Al Hydroxide/Mg Hydroxide (Maalox) 30 ml PO Q4HR PRN PRN Reason: Heartburn Aspirin (Aspirin) 81 mg PO DAILY [facility] Last Admin: 10/06/19 09:31 Dose: 81 mg Documented by: Atorvastatin Calcium (Lipitor) 80 mg PO HS [facility] Last Admin: 10/05/19 21:22 Dose: 80 mg Documented by: Atropine Sulfate (Atropine) 0.5 mg IV ONCE PRN PRN Reason: Symptomatic Bradycardia Baclofen (Lioresal) 10 mg PO BID [facility] Last Admin: 10/06/19 09:31 Dose: 10 mg Documented by: Gabapentin (Neurontin) 300 mg PO TID [facility] Last Admin: 10/06/19 15:20 Dose: 300 mg Documented by: Heparin Sodium (Porcine) (Heparin) 5,000 unit SQ Q12HR [facility] Last Admin: 10/06/19 09:31 Dose: 5,000 unit Documented by: Lisinopril (Zestril) 10 mg PO DAILY [facility] Last Admin: 10/06/19 09:32 Dose: 10 mg Documented by: Loratadine (Claritin) 5 mg PO Q12HR [facility] Metoprolol Tartrate (Lopressor) 25 mg PO BID [facility] Last Admin: 10/06/19 09:32 Dose: 25 mg Documented by: Nicotine (Habitrol 21mg/24hr Patch) 1 patch TRANSDERM DAILY [facility] Last Admin: 10/06/19 09:32 Dose: 1 patch Documented by: Nitroglycerin (Nitrostat) 0.4 mg SUBLINGUAL Q5M PRN PRN Reason: Chest Pain Ticagrelor (Brilinta) 90 mg PO BID [facility] Last Admin: 10/06/19 09:32 Dose: 90 mg Documented by: Zolpidem Tartrate (Ambien) 5 mg PO HS PRN PRN Reason: Insomnia Last Admin: 10/05/19 21:26 Dose: 5 mg Documented by: Physical examination: VITAL SIGNS: 98.6, 68, 17, 11 3/55, 95% room air GENERAL: Laying in bed, comfortable. EYES: Pupils equal. Conjunctiva normal. HEENT: External appearance of nose and ears normal, oral cavity grossly normal. NECK: JVD not raised; masses not palpable. HEART: First and second heart sounds are normal; no edema. LUNGS: Respiratory rate normal; decreased breath sounds ABDOMEN: Soft, nontender, liver spleen not palpable, no masses palpable. PSYCH: Alert and oriented x3; mood and affect normal. INVESTIGATIONS, reviewed in the clinical context: White count 8 hemoglobin 8.8 platelets 237 potassium 4 creatinine 0.57 Previous testing: White count 9 hemoglobin 10.2 platelets 258 potassium 4.1 creatinine 0.61 Troponin I 0.032, crit 5.1 EKG tracing personally reviewed by me-ST elevation in inferior leads with reciprocal changes in anterior leads Chest x-ray film personally reviewed by me-up at [place] exposed possible pulmonary edema Assessment: -Acute ST elevation acute myocardial infarction inferior wall -Urgent cardiac catheterization with stent to the RCA -75% lesion of the LAD, for intervention down the road -Obesity BMI 32.1 -COPD in a current smoker -Chronic nicotine dependence patient is a cigarette smoker -Essential hypertension -Primary osteoarthritis Plan: Care was discussed with the patient. Overall doing better. Hopefully can be discharged tomorrow.
[2019-10-06] MEDS: ZOLPIDEM 5 MG TAB PO PRN (21:26)
[2019-10-06] MEDS: ATORVASTATIN 80 MG TAB PO SCH (21:26)
[2019-10-06] MEDS: LORATADINE 10 MG TAB PO SCH (21:27)
[2019-10-07 06:16] LABS: Basophils % (A) 0 %; Eosinophils # (A) 0.2 k/uL (0-0.7); Eosinophils % (A) 3 %; HCT 27.8 % (34.0-46.0); HGB 9.1 gm/dL (11.4-16.0); Hypochromasia Slight; Lymphocytes # (A) 1.7 k/uL (1.0-4.8); Lymphocytes % (A) 24 %; MCH 30.3 pg (25.0-35.0); MCHC 32.6 g/dL (31.0-37.0); MCV 92.8 fL (80.0-100.0); Mean Platelet Volume 5.6; Monocytes # (A) 0.4 k/uL (0-1.0); Monocytes % (A) 6 %; Neutrophils # (A) 4.6 k/uL (1.3-7.7); Neutrophils % (A) 64 %; Platelet Count 268 k/uL (150-450); RBC 2.99 m/uL (3.80-5.40); RDW 14.6 % (11.5-15.5); WBC 7.2 k/uL (3.8-10.6)
[2019-10-07 06:28] LABS: African American GFR (CKD) >90 (>60 ml/min/1.73 sqM); Anion Gap 6 mmol/L; Blood Urea Nitrogen 18 mg/dL (7-17); Calcium 9.4 mg/dL (8.4-10.2); Carbon Dioxide 26 mmol/L (22-30); Chloride 107 mmol/L (98-107); Glucose 99 mg/dL (74-99); Potassium 4.1 mmol/L (3.5-5.1); Sodium 139 mmol/L (137-145)
[2019-10-07 08:20] VITALS: PULSE 80
[2019-10-07] MEDS: NICOTINE 21MG/24HR PATCH TRANSDERM SCH (08:27)
[2019-10-07] MEDS: GABAPENTIN 300 MG CAP PO SCH (08:28)
[2019-10-07] MEDS: LORATADINE 10 MG TAB PO SCH (08:28)
[2019-10-07] MEDS: HEPARIN SODIUM,PORCINE 5,000 UNIT/ML 1 ML VIAL SQ SCH (08:28)
[2019-10-07] MEDS: ASPIRIN 81 MG PO SCH (08:28)
[2019-10-07] MEDS: LISINOPRIL 10 MG TAB PO SCH (08:28)
[2019-10-07] MEDS: BACLOFEN 10 MG TAB PO SCH (08:28)
[2019-10-07] MEDS: TICAGRELOR 90 MG TAB PO SCH (08:28)
[2019-10-07] MEDS: METOPROLOL TARTRATE 25 MG TAB PO SCH (08:29)
[2019-10-07 09:34] VITALS: RESP 14
[2019-10-07 13:29] VITALS: BP 100/48; TEMP 98.4
--- NOTE | 2019-10-07 14:16 | PN ---
PROGRESS NOTE An 79-year-old lady is admitted to hospital with acute inferior wall myocardial infarction. Underwent catheterization and angioplasty. She is doing well and is free of symptoms today. PHYSICAL EXAM: She is comfortable at rest. Vital signs are stable. There is no jugular venous distention. Carotid upstroke is normal. There is no bruit. Chest exam reveals good air entry bilaterally. Heart exam reveals first and second heart sounds. No gallop. Exam of extremities did not reveal any edema. Peripheral pulses are felt. ASSESSMENT: Acute inferior wall myocardial infarction, status post catheterization and angioplasty. Patient is doing well. She is stable for discharge. Follow up with Dr. Holliday in the office. MMODL / IJN: [id number] /
--- NOTE | 2019-10-07 23:23 | P.DS ---
Providers Date of admission: 10/04/19 12:29 Expected date of discharge: 10/07/19 Attending physician: Fortino Garcia Consults: 10/04/19 14:05 Consult Physician Routine Consulting Provider: [facility] Consult Reason/Comments: Post Interventional patient Do you want consulting provider notified?: Already Contacted Primary care physician: Renzo Thayer [facility] Course: Chief Complaint: Chest Pain Hospital course: This is a very pleasant 79-year-old patient of Dr. Kaden Thayer. Chronic stable medical conditions include COPD, hypertension, osteoarthritis, osteoporosis. Patient sitting upon a chair and started feeling indigestion. It did not go away and progressed to get worse. Started having nausea. [place] like a chest pressure precordial area. No dizziness no lightheadedness. Did not radiate to the neck or arm. Symptoms would last for about 30 minutes she told her fianc To take her to the hospital. Patient ruled for an acute ST elevation [place] of the inferior wall. Taken to the cardiac catheterization lab. Had a successful angioplasty and stent the RCA. admitted to the ICU. Patient also is a 75% lesion to the LAD. This will be addressed later stage. Today-doing well. Walking. No further cardiac symptoms. Cleared by cardiology to go home. Care was discussed with the patient and family. Consultation: Cardiology Dr. Margarita Doe x ray service engineer Dr. KYMBERLY Holliday Physical examination: VITAL SIGNS: 97.5, 14, 100/60, 95% room air GENERAL: Sitting up, comfortable EYES: Pupils equal. Conjunctiva normal. HEENT: External appearance of nose and ears normal, oral cavity grossly normal. NECK: JVD not raised; masses not palpable. HEART: First and second heart sounds are normal; no edema. LUNGS: Respiratory rate normal; decreased breath sounds ABDOMEN: Soft, nontender, liver spleen not palpable, no masses palpable. PSYCH: Alert and oriented x3; mood and affect normal. INVESTIGATIONS, reviewed in the clinical context: White count 8 hemoglobin 8.8 platelets 237 potassium 4 creatinine 0.57 Previous testing: White count 9 hemoglobin 10.2 platelets 258 potassium 4.1 creatinine 0.61 Troponin I 0.032,, 25 EKG tracing personally reviewed by me-ST elevation in inferior leads with reciprocal changes in anterior leads 2-D echo-EF 45-50% Assessment: -Acute ST elevation acute myocardial infarction inferior wall -Urgent cardiac catheterization with stent to the RCA -75% lesion of the LAD, for intervention down the road -Obesity BMI 32.1 -COPD in a current smoker -Chronic nicotine dependence patient is a cigarette smoker -Essential hypertension -Primary osteoarthritis Disposition: Home Plan - Discharge Summary Discharge Rx Participant: Yes New Discharge Prescriptions: New Aspirin 81 mg PO DAILY #30 chew Ticagrelor [Brilinta] 90 mg PO BID #60 tab Atorvastatin [Lipitor] 80 mg PO HS #60 tab Metoprolol Tartrate [Lopressor] 25 mg PO BID #60 tab Melatonin 3 mg PO HS #30 tablet Nitroglycerin Sl Tabs [Nitrostat] 0.4 mg SUBLINGUAL Q5M PRN #25 tab PRN Reason: Chest Pain Lisinopril [Zestril] 10 mg PO DAILY #30 tab Nicotine 21Mg/24Hr Patch [Habitrol] 1 each TRANSDERM DAILY #14 patch Aspirin 81 mg PO DAILY #30 chew Ticagrelor [Brilinta] 90 mg PO BID #60 tab Nicotine 21Mg/24Hr Patch [Habitrol] 1 patch TRANSDERM DAILY #30 patch Atorvastatin [Lipitor] 80 mg PO HS #30 tab Nitroglycerin Sl Tabs [Nitrostat] 0.4 mg SUBLINGUAL Q5M PRN #25 tab PRN Reason: Chest Pain Lisinopril [Zestril] 10 mg PO DAILY #30 tab Continue Gabapentin [Neurontin] 400 mg PO TID Cholecalciferol [Vitamin D3 (25 Mcg = 1000 Iu)] 1 tab PO DAILY Baclofen 10 mg PO BID Changed Loratadine [Claritin] 5 mg PO BID #0 Discontinued Metoprolol Succinate [Toprol XL] 25 mg PO QAM Lisinopril 20 mg PO QAM Discharge Medication List Gabapentin [Neurontin] 400 mg PO TID 10/05/16 [History] Baclofen 10 mg PO BID 10/04/19 [History] Cholecalciferol [Vitamin D3 (25 Mcg = 1000 Iu)] 1 tab PO DAILY 10/04/19 [History] Aspirin 81 mg PO DAILY #30 chew 10/07/19 [Rx] Aspirin 81 mg PO DAILY #30 chew 10/07/19 [Rx] Atorvastatin [Lipitor] 80 mg PO HS #30 tab 10/07/19 [Rx] Atorvastatin [Lipitor] 80 mg PO HS #60 tab 10/07/19 [Rx] Lisinopril [Zestril] 10 mg PO DAILY #30 tab 10/07/19 [Rx] Lisinopril [Zestril] 10 mg PO DAILY #30 tab 10/07/19 [Rx] Loratadine [Claritin] 5 mg PO BID #0 10/07/19 [Rx] Melatonin 3 mg PO HS #30 tablet 10/07/19 [Rx] Metoprolol Tartrate [Lopressor] 25 mg PO BID #60 tab 10/07/19 [Rx] Nicotine 21Mg/24Hr Patch [Habitrol] 1 each TRANSDERM DAILY #14 patch 10/07/19 [Rx] Nicotine 21Mg/24Hr Patch [Habitrol] 1 patch TRANSDERM DAILY #30 patch 10/07/19 [Rx] Nitroglycerin Sl Tabs [Nitrostat] 0.4 mg SUBLINGUAL Q5M PRN #25 tab 10/07/19 [Rx] Nitroglycerin Sl Tabs [Nitrostat] 0.4 mg SUBLINGUAL Q5M PRN #25 tab 10/07/19 [Rx] Ticagrelor [Brilinta] 90 mg PO BID #60 tab 10/07/19 [Rx] Ticagrelor [Brilinta] 90 mg PO BID #60 tab 10/07/19 [Rx] Follow up Appointment(s)/Referral(s): Donnie Holliday MD [STAFF PHYSICIAN] - 1 Week (10/13/19 at 2:30 pm) Renzo Thayer MD [Primary Care Provider] - 1 Week (10/15/19 at 11:00 am) Patient Instructions/Handouts: How to Stop Smoking (DC), Acute Coronary Syndrome (DC), After Radial Heart Catheterization (GEN) Activity/Diet/Wound Care/Special Instructions: post Mi cardioloy orders Discharge Disposition: HOME SELF-CARE
== END 2019-10-07 18:00 | disposition home or self-care (01) | DRG 247 ==
LOC: EC 12:16 → 2SICU 12:29
PROVIDERS: ADMIT Hospitalist; ATTEND Hospitalist
PROC: B2111ZZ Fluoroscopy of Multiple Coronary Arteries using Low Osmolar Contrast (ICD-10-PCS; 2019-10-04)
PROC: 027034Z Dilation of Coronary Artery, One Artery with Drug-eluting Intraluminal Device, Percutaneous Approach (ICD-10-PCS; principal; 2019-10-04 13:00)
PROC: 4A023N7 Measurement of Cardiac Sampling and Pressure, Left Heart, Percutaneous Approach (ICD-10-PCS; 2019-10-04 13:00)
DX: I21.19 ST elevation (STEMI) myocardial infarction involving other coronary artery of inferior wall (principal); I25.10 Atherosclerotic heart disease of native coronary artery without angina pectoris; E66.9 Obesity, unspecified; E78.5 Hyperlipidemia, unspecified; F17.210 Nicotine dependence, cigarettes, uncomplicated; Z71.6 Tobacco abuse counseling; I10 Essential (primary) hypertension; I25.2 Old myocardial infarction; J44.9 Chronic obstructive pulmonary disease, unspecified; M19.91 Primary osteoarthritis, unspecified site; M81.0 Age-related osteoporosis without current pathological fracture; Z68.32 Body mass index [BMI] 32.0-32.9, adult; Z79.82 Long term (current) use of aspirin; Z79.83 Long term (current) use of bisphosphonates; Z79.899 Other long term (current) drug therapy; Z86.73 Personal history of transient ischemic attack (TIA), and cerebral infarction without residual deficits
CPT/HCPCS: 71045; 80048; 80053; 80061; 82550; 82553; 83735; 84484; 85025; 85610; 85730; 93005; 93306; 93454; 96361; 96374; 99291; C1874

== ENCOUNTER 2019-11-19 06:30 | Day surgery (SDC) | payer MEDICARE, OTHER ==
[~2019-11-19 06:30] MED LIST changes: +ALPRAZolam 0.25 MG TAB PO PRN; +ALPRAZolam 0.5 MG TAB PO PRN; +ASPIRIN 325 MG TAB PO STA; +ATORVASTATIN 80 MG TAB PO STA; -LACTATED RINGERS 1,000 ML IV SCH; +NITROGLYCERIN SL TABS 0.4 MG TAB SUBLINGUAL PRN; +SODIUM CHLORIDE 0.9% 1,000 ML in EMPTY BAG 1 BAG IV ONE
[2019-11-19 07:24] LABS: Calcium 9.4 mg/dL (8.4-10.2); Potassium 5.1 mmol/L (3.5-5.1)
[2019-11-19] MEDS ORDERED: MIDAZOLAM 2 MG/2 ML VIAL IV ONE (07:51)
[2019-11-19] MEDS ORDERED: LIDOCAINE 1% INJ 10MG/ML (20 ML MDV) SQ ONE (07:51)
[2019-11-19] MEDS: VERAPAMIL SYRINGE (5 MG/10 ML) INTRAARTER ONE ×2 (07:56→08:17)
[2019-11-19] MEDS ORDERED: NITROGLYCERIN 1000MCG/10ML SYRINGE INTRACORON ONE (08:15)
[2019-11-19] MEDS ORDERED: IOPAMIDOL-370 100ML BTL INJ ONE (08:17)
[2019-11-19] MEDS ORDERED: ZOLPIDEM 5 MG TAB PO PRN (08:26)
[2019-11-19] MEDS ORDERED: ATROPINE SULFATE 0.1 MG/ML 10ML SYRINGE IV PRN (08:26)
[2019-11-19] MEDS ORDERED: MAG HYDROX/AL HYDROX/SIMETH 30 ML CUP PO PRN (08:26)
[2019-11-19] MEDS ORDERED: RX INFO: IV CONTRAST WAS GIVEN 1 EACH MISC MISCELLANE PRN (08:26)
[2019-11-19] MEDS ORDERED: NITROGLYCERIN SL TABS 0.4 MG TAB SUBLINGUAL PRN ×2 (08:26→08:39)
[2019-11-19] MEDS ORDERED: TICAGRELOR 90 MG TAB PO ONE (08:27)
[2019-11-19] MEDS ORDERED: SODIUM CHLORIDE 0.9% 1,000 ML IV SCH (08:30)
[2019-11-19] MEDS ORDERED: ASPIRIN 81 MG PO SCH (09:00)
[2019-11-19] MEDS ORDERED: LORATADINE 10 MG TAB PO SCH (09:00)
[2019-11-19] MEDS ORDERED: CHOLECALCIFEROL 1,000 UNIT TAB PO SCH (09:00)
[2019-11-19] MEDS ORDERED: GABAPENTIN 400 MG CAP PO SCH (09:00)
[2019-11-19] MEDS ORDERED: LISINOPRIL 10 MG TAB PO SCH (09:00)
[2019-11-19] MEDS ORDERED: BACLOFEN 10 MG TAB PO SCH (09:00)
[2019-11-19] MEDS ORDERED: TICAGRELOR 90 MG TAB PO SCH (09:00)
[2019-11-19] MEDS ORDERED: METOPROLOL TARTRATE 25 MG TAB PO SCH (09:00)
--- NOTE | 2019-11-19 09:15 | CC ---
PERCUTANEOUS CORONARY INTERVENTION REPORT DATE OF SERVICE: 11/19/2019. PROCEDURE: 1. Selective coronary angiography of right coronary artery. 2. PTCA and stenting of mid LAD with a drug-eluting stent. PERFORMED BY: Dr. Preet Holliday. CLINICAL INFORMATION: Mrs. Sonja Lizarraga is an 79-year-old lady who presented with an acute inferior NJ in the first week of October of this year, underwent stenting of a totally occluded RCA in the setting of an acute NJ with a good result. At that time, she was found to have a significant 80% mid LAD lesion which was a very long lesion. She was advised staged intervention and brought in for the procedure electively. Rationale, risks, benefits, options were explained to the patient. PROCEDURE NOTE: Under local anesthesia and strict aseptic precautions, a 6-English introducer was placed in the right radial artery. I used a standard JR4 diagnostic catheter to do selective coronary angiography of the RCA and noted that the vessel was widely patent at the site of previous stenting without any disease. I then switched over to a XBLAD 3.5 guide catheter and cannulated the left coronary artery. A run-through wire was used to cross the lesion. Without predilatation a 28 mm long 3.0 caliber Xience stent was deployed at 13 atmospheres. Patient had no chest discomfort or new EKG changes. She has underlying IVCD. Excellent angiographic result without complication was achieved. The sheath was then taken out and TR band applied as per protocol and saturation of the fingers of the right hand was 94%. Patient received 6000 units of heparin. She already received Brilinta this morning and was already on Brilinta 90 mg b.i.d. along with aspirin 81 mg daily. She received 6000 units of heparin and the ACT was 312. Results were discussed with the patient and family. I expect that she will be discharged either later on today or early tomorrow morning. MMODL / IJN: [id number] / [facility]
[2019-11-19 15:05] VITALS: BMI 34.0
[2019-11-19] MEDS: CHOLECALCIFEROL 1,000 UNIT TAB PO SCH (16:52)
[2019-11-19] MEDS: GABAPENTIN 400 MG CAP PO SCH (20:43)
[2019-11-19] MEDS: TICAGRELOR 90 MG TAB PO SCH (20:43)
[2019-11-19] MEDS: BACLOFEN 10 MG TAB PO SCH (20:44)
[2019-11-19] MEDS: LORATADINE 10 MG TAB PO SCH (20:44)
[2019-11-19] MEDS: METOPROLOL TARTRATE 25 MG TAB PO SCH (20:44)
[2019-11-19] MEDS ORDERED: MELATONIN 3 MG TABLET PO SCH (21:00)
[2019-11-20 04:58] VITALS: RESP 18
[2019-11-20 07:51] LABS: Basophils # (A) 0.1 k/uL (0-0.2); Basophils % (A) 1 %; Eosinophils # (A) 0.7 k/uL (0-0.7); Eosinophils % (A) 7 %; HCT 25.4 % (34.0-46.0); HGB 8.1 gm/dL (11.4-16.0); Hypochromasia Moderate; Lymphocytes # (A) 2.2 k/uL (1.0-4.8); Lymphocytes % (A) 21 %; MCH 29.3 pg (25.0-35.0); MCV 91.6 fL (80.0-100.0); Monocytes # (A) 0.6 k/uL (0-1.0); Monocytes % (A) 6 %; Neutrophils # (A) 6.6 k/uL (1.3-7.7); Neutrophils % (A) 64 %; Platelet Count 359 k/uL (150-450); RBC 2.78 m/uL (3.80-5.40); RDW 14.3 % (11.5-15.5); WBC 10.3 k/uL (3.8-10.6)
--- NOTE | 2019-11-20 08:15 | DS ---
DISCHARGE SUMMARY DATE OF ADMISSION: 11/19/2019. DATE OF DISCHARGE: 11/20/2019. DIAGNOSES: 1. Unstable angina. 2. Hypertension. 3. Recent inferior acute myocardial infarction. Mrs. Sonja Lizarraga was brought in for elective PCI of LAD. On October 04, she presented with acute inferior [place], underwent stenting of a totally occluded RCA. Coronary angiography on 11/19/2019 from right radial approach revealed that the right coronary was widely patent. She underwent stenting of mid LAD with a drug-eluting stent with excellent angiographic result. Postprocedure course was uneventful. Her lab so far are unremarkable. She is asymptomatic, doing well. Right radial cath site is clean and dry with a good pulse. Blood pressure is 118/70, pulse rate is 70 per minute. No JVD. S1-S2 heard normally. No significant murmurs. Lungs revealed decent air entry. Abdomen and lower exam is unchanged. The patient will be discharged once all her labs are checked. She has almost all her medications. I gave her another prescription for atorvastatin 80 mg daily and will give a sublingual nitroglycerin prescription for p.r.n. chest pain today. She will be discharged today and will see Dr. Jorge in one week. All discharge instructions regarding activity, diet, and medications were given. MMODL / IJN: [id number] /
[2019-11-20] MEDS: METOPROLOL TARTRATE 25 MG TAB PO SCH (08:16)
[2019-11-20] MEDS: BACLOFEN 10 MG TAB PO SCH (08:16)
[2019-11-20] MEDS: CHOLECALCIFEROL 1,000 UNIT TAB PO SCH (08:16)
[2019-11-20] MEDS: GABAPENTIN 400 MG CAP PO SCH (08:16)
[2019-11-20] MEDS: TICAGRELOR 90 MG TAB PO SCH (08:16)
[2019-11-20] MEDS: LORATADINE 10 MG TAB PO SCH (08:16)
[2019-11-20 08:17] LABS: Calcium 9.9 mg/dL (8.4-10.2); Potassium 5.3 mmol/L (3.5-5.1)
[2019-11-20 08:25] VITALS: BP 111/71; PULSE 71; TEMP 99.6
[2019-11-20] MEDS ORDERED: ASPIRIN 81 MG PO SCH (09:00)
[2019-11-20] MEDS ORDERED: LISINOPRIL 10 MG TAB PO SCH (09:00)
[2019-11-20] MEDS ORDERED: ATORVASTATIN 80 MG TAB PO SCH (21:00)
== END 2019-11-20 10:00 | disposition home or self-care (01) ==
LOC: CATHCVL 06:30 → 3SCARD 13:00 → CATHCVL 11-20 10:00
PROVIDERS: ATTEND Internal Medicine Interventional Cardiology
DX: I25.110 Atherosclerotic heart disease of native coronary artery with unstable angina pectoris (principal); I44.7 Left bundle-branch block, unspecified; I42.8 Other cardiomyopathies; J44.9 Chronic obstructive pulmonary disease, unspecified; I10 Essential (primary) hypertension; F17.210 Nicotine dependence, cigarettes, uncomplicated; Z79.82 Long term (current) use of aspirin; Z79.02 Long term (current) use of antithrombotics/antiplatelets; Z79.899 Other long term (current) drug therapy; Z95.5 Presence of coronary angioplasty implant and graft; Z82.49 Family history of ischemic heart disease and other diseases of the circulatory system
CPT/HCPCS: 80048 ×2; 85025; C9600; C1887; C1769; C1894; C1874; J2250; J2001; J1644; Q9967

== ENCOUNTER 2020-01-19 14:41 | Emergency (ER) | payer MEDICARE, OTHER ==
[2020-01-19 14:49] VITALS: RESP 20; TEMP 98
[2020-01-19] MEDS ORDERED: SODIUM CHLORIDE 0.9% 500 ML 500 ML IV STA (15:44)
[2020-01-19] MEDS ORDERED: predniSONE 20 MG TAB PO STA (15:55)
--- NOTE | 2020-01-19 15:57 | ED ---
General Adult HPI - General Chief complaint: Skin/Abscess/Foreign Body Stated complaint: Itchy all over Time Seen by Provider: 01/19/20 15:04 Source: patient, RN notes reviewed Mode of arrival: ambulatory Limitations: no limitations - History of Present Illness Initial comments: 79-year-old female with a past medical history of asthma, COPD, CVA, hypert ension, [place] presents to the emergency department for a chief, general pruritus. Patient states she has had generalized itching since last night. States she itches all over except her face. States she has had this once before in the past and was given steroids which resolved her symptoms. States she saw her primary care provider for that at that time. Patient has an appointment with her primary care provider tomorrow but could not stand the itching so came to the emergency determine. Patient did attempt to take Benadryl this morning without improvement. Patient denies any rash. Patient has no other complaints at this time including shortness of breath, chest pain, abdominal pain, nausea or vomiting, headache, or visual changes. - Related Data Home Medications Medication Instructions Recorded Confirmed Gabapentin [Neurontin] 400 mg PO BID 10/05/16 11/19/19 Baclofen 10 mg PO BID 10/04/19 11/19/19 Cholecalciferol [Vitamin D3 (25 1 tab PO DAILY 10/04/19 11/19/19 Mcg = 1000 Iu)] Previous Rx's Medication Instructions Recorded Aspirin 81 mg PO DAILY #30 chew 10/07/19 Atorvastatin [Lipitor] 80 mg PO HS #30 tab 10/07/19 Lisinopril [Zestril] 10 mg PO DAILY #30 tab 10/07/19 Loratadine [Claritin] 5 mg PO BID #0 10/07/19 Melatonin 3 mg PO HS #30 tablet 10/07/19 Metoprolol Tartrate [Lopressor] 25 mg PO BID #60 tab 10/07/19 Nitroglycerin Sl Tabs [Nitrostat] 0.4 mg SUBLINGUAL Q5M PRN #25 tab 10/07/19 Ticagrelor [Brilinta] 90 mg PO BID #60 tab 10/07/19 Nitroglycerin Sl Tabs [Nitrostat] 0.4 mg SUBLINGUAL Q5M PRN tab 11/20/19 predniSONE [Deltasone] 20 mg PO DAILY #4 tab 01/19/20 Allergies Allergy/AdvReac Type Severity Reaction Status Date / Time No Known Allergies Allergy Verified 01/19/20 14:48 Review of Systems ROS Statement: Those systems with pertinent positive or pertinent negative responses have been documented in the HPI. ROS Other: All systems not noted in ROS Statement are negative. Past Medical History Past Medical History: Asthma, COPD, CVA/TIA, Hypertension, Myocardial Infarction ([place]), Osteoarthritis (OA) Additional Past Medical History / Comment(s): History of mild stroke in 1987; hx of osteoporosis, back pain Last Myocardial Infarction Date:: 10-04-19 History of Any Multi-Drug Resistant Organisms: None Reported Past Surgical History: Appendectomy, Heart Catheterization With Stent, Joint Replacement, Orthopedic Surgery, Tubal Ligation Additional Past Surgical History / Comment(s): heart cath w/ stent 10-04-19,rt rotator cuff, [place] cataracts,rt knee replacement Past Anesthesia/Blood Transfusion Reactions: No Reported Reaction Date of Last Stent Placement:: 11/19/19 Past Psychological History: No Psychological Hx Reported Smoking Status: Former smoker Past Alcohol Use History: None Reported Past Drug Use History: None Reported - Past Family History Sister(s) Family Medical History: Cancer Additional Family Medical History / Comment(s): ovarian Brother(s) Family Medical History: Deep Vein Thrombosis (DVT) General Exam Limitations: no limitations General appearance: alert, in no apparent distress Head exam: Present: atraumatic, normocephalic, normal inspection Eye exam: Present: normal appearance, PERRL, EOMI. Absent: scleral icterus, conjunctival injection, periorbital swelling ENT exam: Present: normal exam, mucous membranes moist Neck exam: Present: normal inspection, full ROM. Absent: tenderness, meningismus, lymphadenopathy Respiratory exam: Present: normal lung sounds bilaterally. Absent: respiratory distress, wheezes, rales, rhonchi, stridor Cardiovascular Exam: Present: regular rate, normal rhythm, normal heart sounds. Absent: systolic murmur, diastolic murmur, rubs, gallop, clicks GI/Abdominal exam: Present: soft, normal bowel sounds. Absent: distended, tenderness, guarding, rebound, rigid Skin exam: Present: warm, dry, intact, normal color. Absent: rash Course Vital Signs 01/19/20 14:45 Temperature 98.0 F Pulse Rate 80 Respiratory 20 Rate Blood Pressure 162/82 O2 Sat by Pulse 99 Oximetry Medical Decision Making - Medical Decision Making Vitals are stable. CBC is unremarkable. CMP unremarkable. No evidence of uremia or hyperbilirubinemia. I do not see an emergent cause for pruritus. Patient will be treated with steroids. She will follow up with primary care at her appointment tomorrow. She will return here if she has any worsening symptoms. I discussed this case with attending Dr. Lainez who agrees with this assessment and treatment plan. - Lab Data Result diagrams: 01/19/20 15:43 01/19/20 15:51 Lab Results 01/19/20 01/19/20 Range/Units 15:43 15:51 WBC 5.0 (3.8-10.6) k/uL RBC 3.02 L (3.80-5.40) m/uL Hgb 8.2 L (11.4-16.0) gm/dL Hct 26.5 L (34.0-46.0) % MCV 87.6 (80.0-100.0) fL MCH 27.1 (25.0-35.0) pg MCHC 31.0 (31.0-37.0) g/dL RDW 17.7 H (11.5-15.5) % Plt Count 202 (150-450) k/uL Neutrophils % 52 % Lymphocytes % 32 % Monocytes % 8 % Eosinophils % 5 % Basophils % 1 % Neutrophils # 2.6 (1.3-7.7) k/uL Lymphocytes # 1.6 (1.0-4.8) k/uL Monocytes # 0.4 (0-1.0) k/uL Eosinophils # 0.3 (0-0.7) k/uL Basophils # 0.0 (0-0.2) k/uL Hypochromasia Moderate Anisocytosis Slight Sodium 143 (137-145) mmol/L Potassium 3.4 L (3.5-5.1) mmol/L Chloride 110 H (98-107) mmol/L Carbon Dioxide 25 (22-30) mmol/L Anion Gap 8 mmol/L BUN 16 (7-17) mg/dL Creatinine 0.60 (0.52-1.04) mg/dL Est GFR (CKD-EPI)AfAm >90 (>60 ml/min/1.73 sqM) Est GFR (CKD-EPI)NonAf 86 (>60 ml/min/1.73 sqM) Glucose 109 H (74-99) mg/dL Calcium 9.2 (8.4-10.2) mg/dL Total Bilirubin 0.6 (0.2-1.3) mg/dL AST 20 (14-36) U/L ALT 12 (4-34) U/L Alkaline Phosphatase 47 (38-126) U/L Total Protein 6.2 L (6.3-8.2) g/dL Albumin 3.8 (3.5-5.0) g/dL Disposition Clinical Impression: Pruritus Disposition: HOME SELF-CARE Condition: Good Instructions (If sedation given, give patient instructions): Itchy Skin (ED) Additional Instructions: Please take steroid as directed. Please follow-up with your primary care provider tomorrow your appointment. Return here if you have any worsening symptoms. Prescriptions: predniSONE [Deltasone] 20 mg PO DAILY #4 tab Is patient prescribed a controlled substance at d/c from ED?: No Referrals: Renzo Thayer MD [Primary Care Provider] - 1-2 days Time of Disposition: 16:27
[2020-01-19 16:04] LABS: Anisocytosis Slight; Basophils % (A) 1 %; Eosinophils # (A) 0.3 k/uL (0-0.7); Eosinophils % (A) 5 %; HCT 26.5 % (34.0-46.0); HGB 8.2 gm/dL (11.4-16.0); Hypochromasia Moderate; Lymphocytes # (A) 1.6 k/uL (1.0-4.8); Lymphocytes % (A) 32 %; MCH 27.1 pg (25.0-35.0); MCV 87.6 fL (80.0-100.0); Mean Platelet Volume 7.9; Monocytes # (A) 0.4 k/uL (0-1.0); Monocytes % (A) 8 %; Neutrophils # (A) 2.6 k/uL (1.3-7.7); Neutrophils % (A) 52 %; Platelet Count 202 k/uL (150-450); RBC 3.02 m/uL (3.80-5.40); RDW 17.7 % (11.5-15.5)
[2020-01-19 16:10] LABS: ALT 12 U/L (4-34); AST 20 U/L (14-36); African American GFR (CKD) >90 (>60 ml/min/1.73 sqM); Albumin 3.8 g/dL (3.5-5.0); Alkaline Phosphatase 47 U/L (38-126); Anion Gap 8 mmol/L; Blood Urea Nitrogen 16 mg/dL (7-17); Calcium 9.2 mg/dL (8.4-10.2); Carbon Dioxide 25 mmol/L (22-30); Chloride 110 mmol/L (98-107); Glucose 109 mg/dL (74-99); Non-African American GFR(CKD) 86 (>60 ml/min/1.73 sqM); Potassium 3.4 mmol/L (3.5-5.1); Sodium 143 mmol/L (137-145); Total Bilirubin 0.6 mg/dL (0.2-1.3); Total Protein 6.2 g/dL (6.3-8.2)
[2020-01-19 16:48] VITALS: BP 148/84; PULSE 74
== END 2020-01-19 16:48 | disposition home or self-care (01) ==
LOC: EC 14:41
DX: L29.9 Pruritus, unspecified (principal); Z87.891 Personal history of nicotine dependence; Z86.73 Personal history of transient ischemic attack (TIA), and cerebral infarction without residual deficits
CPT/HCPCS: 36415; 80053; 85025; 99283; 96360; J7512

== ENCOUNTER → 2020-02-02 | Outpatient (CLI) | payer MEDICARE, OTHER ==
--- NOTE | 2020-02-02 12:33 | XR ---
EXAMINATION TYPE: XR chest 2V DATE OF EXAM: 02/02/2020 COMPARISON: 10/04/2019 TECHNIQUE: PA and lateral views submitted. HISTORY: Shortness of breath FINDINGS: The lungs are clear and there is no pneumothorax, pleural effusion, or focal pneumonia. Nephropathy of the shoulders with cardiomegaly and postsurgical changes right shoulder. Linear changes left lung base. Hypertrophic degenerative changes spine. Suspect calcified lymph nodes within the mediastinum. IMPRESSION: 1. Cardiomegaly with basilar atelectasis favored over pneumonia..
== END | disposition home or self-care (01) ==
LOC: RADXRMAIN 12:13
PROVIDERS: ATTEND Pediatrics
DX: I51.7 Cardiomegaly (principal); J98.11 Atelectasis
CPT/HCPCS: 71046

== ENCOUNTER → 2020-02-05 | Outpatient (CLI) | payer MEDICARE, OTHER ==
[2020-02-05 18:26] LABS: Anisocytosis Slight; Basophils % (A) 1 %; Eosinophils # (A) 0.2 k/uL (0-0.7); Eosinophils % (A) 3 %; HCT 33.5 % (34.0-46.0); HGB 10.2 gm/dL (11.4-16.0); Hypochromasia Marked; Lymphocytes # (A) 1.9 k/uL (1.0-4.8); Lymphocytes % (A) 27 %; MCH 27.4 pg (25.0-35.0); MCHC 30.5 g/dL (31.0-37.0); Monocytes # (A) 0.4 k/uL (0-1.0); Monocytes % (A) 5 %; Neutrophils # (A) 4.2 k/uL (1.3-7.7); Neutrophils % (A) 62 %; Platelet Count 265 k/uL (150-450); RBC 3.72 m/uL (3.80-5.40); RDW 17.2 % (11.5-15.5); WBC 6.8 k/uL (3.8-10.6)
[2020-02-06 00:38] LABS: African American GFR (CKD) 69.5 (60.0-200.0); Albumin 4.4 g/dL (3.80-4.90); Albumin/Globulin Ratio 2.75 (1.60-3.17); Anion Gap 8.9 mmol/L (4.00-12.00); BUN/Creat Ratio 17.78 Ratio (12.00-20.00); Calcium 9.8 mg/dL (8.7-10.3); Carbon Dioxide 28.1 mmol/L (21.6-31.8); Globulin 1.6 g/dL (1.6-3.3); Potassium 3.8 mmol/L (3.5-5.5); Total Bilirubin 0.5 mg/dL (0.2-1.2)
== END | disposition home or self-care (01) ==
LOC: LABWHC1 16:34
PROVIDERS: ATTEND Internal Medicine Cardiovascular Disease
DX: D64.9 Anemia, unspecified (principal); R06.02 Shortness of breath
CPT/HCPCS: 36415; 80053; 83880; 85025

== ENCOUNTER 2022-03-26 08:04 | Emergency (ER) | payer MEDICARE, OTHER ==
--- NOTE | 2022-03-26 13:55 | CT ---
EXAMINATION TYPE: CT lumbar spine wo con DATE OF EXAM: 03/26/2022 COMPARISON: HISTORY: Rt leg pain CT DLP: 1054.6 mGycm CONTRAST: None TECHNIQUE: CT of the lumbar spine is performed on a spiral scan at 3 mm thick sections . Reconstructed images are performed in the coronal and sagittal planes. FINDINGS: T12-L1: No focal disc herniation or significant disc bulge is evident. No spinal canal stenosis or neural foraminal stenosis is present. L1-L2: No focal disc herniation or significant disc bulge is evident. No spinal canal stenosis or n eural foraminal stenosis is present L2-L3: Minimal disc bulge is present with anterior thecal sac contact. No AP spinal canal stenosis is present. Neural foramen are patent. L3-L4: Broad-based disc bulge is present with anterior thecal sac compression. Ligamentum flavum laxi ty is present. Mild spinal canal stenosis is present. L4-L5: Broad-based disc bulge is present with moderate anterior thecal sac compression. Facet hypertr ophy and ligamentum flavum laxity is present with lateral canal narrowing. Moderate spinal canal sten osis is present. Left foraminal stenosis is present. L5-S1: No focal disc herniation or significant disc bulge is evident. No spinal canal stenosis or n eural foraminal stenosis is present Vertebral alignment appears normal. Preliminary report was provided at the time of imaging. IMPRESSION: 1. Disc bulging L3-4 with mild anterior sac compression and ligamentum flavum laxity contributing to mild spinal canal stenosis. 2. Broad-based disc bulging with moderate anterior thecal sac compression. Facet hypertrophy of ligam entum flavum laxity contributes to moderate spinal canal stenosis and lateral canal narrowing. 3. There appears to be severe left foraminal stenosis present at the L4-5 level due to disc bulging.
--- NOTE | 2022-03-26 19:35 | US ---
EXAMINATION TYPE: US venous doppler duplex LE RT DATE OF EXAM: 03/26/2022 3:38 PM COMPARISON: CLINICAL HISTORY: Right leg pain. Right leg pain SIDE PERFORMED: Right TECHNIQUE: The lower extremity deep venous system is examined utilizing real time linear array sonog bryan with graded compression, doppler sonography and color-flow sonography. VESSELS IMAGED: Common Femoral Vein Deep Femoral Vein Greater Saphenous Vein * Femoral Vein Popliteal Vein Small Saphenous Vein * Proximal Calf Veins (* superficial vessels) Difficult study and limited visualization of popliteal vein due to swelling. Grayscale, color doppl er, spectral doppler imaging performed of the deep veins of the lower extremities. There is normal f low, compressibility, vascular waveforms. Right Leg: Appears negative for DVT IMPRESSION: No evidence of DVT of the right lower extremity. Limited evaluation of the popliteal vei n and calf veins.
== END 2022-03-26 11:00 | disposition home or self-care (01) ==
LOC: EC 08:04
DX: M54.16 Radiculopathy, lumbar region (principal)
CPT/HCPCS: 72131; 99283

== ENCOUNTER 2022-05-10 19:19 | Emergency (ER) | payer MEDICARE, OTHER ==
[2022-05-10 19:44] VITALS: BP 133/69; PULSE 88; RESP 16; TEMP 98.1
[2022-05-10] MEDS ORDERED: LORATADINE 10 MG TAB PO STA (21:33)
[2022-05-10] MEDS ORDERED: predniSONE 20 MG TAB PO STA (21:33)
[2022-05-10] MEDS ORDERED: FAMOTIDINE 20 MG TAB PO STA (21:34)
--- NOTE | 2022-05-10 21:44 | ED ---
Skin/Abscess/FB HPI - General Chief complaint: Skin/Abscess/Foreign Body Stated complaint: Nerves Time Seen by Provider: 05/10/22 21:23 Source: patient, RN notes reviewed Mode of arrival: ambulatory Limitations: no limitations - History of Present Illness Initial comments: This is a pleasant 81-year-old female with a history of asthma, COPD, CVA/TIA, hypertension, myocardial infarction, and osteoarthritis. Patient presents today complaining of generalized itching involving her torso and extremities. Patient states that when going on all day. Patient states she had to go to court yesterday and her "nerves" were bothering her. She denies any rash. She denies any fever or chills. Patient states this has happened several times previously and she usually gets a course of prednisone which takes care of it. No headache, no fever or chills, no changes in vision or hearing, no sore throat or difficulty with speech, no neck pain, no chest pain or shortness of breath, no abdominal pain, no nausea or vomiting, no changes in urination or bowel movements, no numbness or tingling, no extremity pain, no skin rashes or lesion sAndrew NOONAN complaint: rash - Related Data Home Medications Medication Instructions Recorded Confirmed Gabapentin [Neurontin] 400 mg PO BID 10/05/16 11/19/19 Baclofen 10 mg PO BID 10/04/19 11/19/19 Cholecalciferol [Vitamin D3 (25 1 tab PO DAILY 10/04/19 11/19/19 Mcg = 1000 Iu)] Previous Rx's Medication Instructions Recorded Aspirin 81 mg PO DAILY #30 chew 10/07/19 Atorvastatin [Lipitor] 80 mg PO HS #30 tab 10/07/19 Loratadine [Claritin] 5 mg PO BID #0 10/07/19 Melatonin 3 mg PO HS #30 tablet 10/07/19 Metoprolol Tartrate [Lopressor] 25 mg PO BID #60 tab 10/07/19 Nitroglycerin Sl Tabs [Nitrostat] 0.4 mg SUBLINGUAL Q5M PRN #25 tab 10/07/19 Ticagrelor [Brilinta] 90 mg PO BID #60 tab 10/07/19 lisinopriL [Zestril] 10 mg PO DAILY #30 tab 10/07/19 Nitroglycerin Sl Tabs [Nitrostat] 0.4 mg SUBLINGUAL Q5M PRN tab 11/20/19 predniSONE [Deltasone] 20 mg PO DAILY #4 tab 01/19/20 predniSONE [Deltasone] 40 mg PO DIRECTED #8 tab 05/10/22 Allergies Allergy/AdvReac Type Severity Reaction Status Date / Time No Known Allergies Allergy Verified 05/10/22 19:40 Review of Systems ROS Statement: Those systems with pertinent positive or pertinent negative responses have been documented in the HPI. ROS Other: All systems not noted in ROS Statement are negative. Past Medical History Past Medical History: Asthma, COPD, CVA/TIA, Hypertension, Myocardial Infarction ([place]), Osteoarthritis (OA) Additional Past Medical History / Comment(s): History of mild stroke in 1987; hx of osteoporosis, back pain Last Myocardial Infarction Date:: 10-04-19 History of Any Multi-Drug Resistant Organisms: None Reported Past Surgical History: Appendectomy, Heart Catheterization With Stent, Joint Replacement, Orthopedic Surgery, Tubal Ligation Additional Past Surgical History / Comment(s): heart cath w/ stent 10-04-19,rt rotator cuff, [place] cataracts,rt knee replacement Past Anesthesia/Blood Transfusion Reactions: No Reported Reaction Date of Last Stent Placement:: 11/19/19 Past Psychological History: No Psychological Hx Reported Smoking Status: Current some day smoker Past Alcohol Use History: None Reported Past Drug Use History: None Reported - Past Family History Sister(s) Family Medical History: Cancer Additional Family Medical History / Comment(s): ovarian Brother(s) Family Medical History: Deep Vein Thrombosis (DVT) General Exam Limitations: no limitations General appearance: alert, in no apparent distress Head exam: Present: atraumatic, normocephalic, normal inspection Eye exam: Present: normal appearance, PERRL, EOMI. Absent: scleral icterus, conjunctival injection, periorbital swelling ENT exam: Present: normal exam, normal oropharynx, mucous membranes dry, mucous membranes moist, normal external ear exam Neck exam: Present: normal inspection. Absent: tenderness, meningismus, lymphadenopathy Respiratory exam: Present: normal lung sounds bilaterally. Absent: respiratory distress, wheezes, rales, rhonchi, stridor Cardiovascular Exam: Present: regular rate, normal rhythm, normal heart sounds. Absent: systolic murmur, diastolic murmur, rubs, gallop, clicks GI/Abdominal exam: Present: soft, normal bowel sounds. Absent: distended, tenderness, guarding, rebound, rigid Extremities exam: Present: normal inspection, full ROM, normal capillary refill. Absent: tenderness, pedal edema, joint swelling, calf tenderness Back exam: Present: normal inspection Neurological exam: Present: alert, oriented X3, CN II-XII intact Psychiatric exam: Present: normal affect, normal mood Skin exam: Present: warm, dry, intact, normal color. Absent: rash, cyanosis, diaphoretic, erythema, urticaria, vesicles, petechiae, pallor, mottled, abrasion Course Vital Signs 05/10/22 19:40 Temperature 98.1 F Pulse Rate 88 Respiratory 16 Rate Blood Pressure 133/69 O2 Sat by Pulse 98 Oximetry Medical Decision Making - Medical Decision Making We'll order baseline labs to ensure he has no significant uremia or abnormal liver function tests. Antihistamines and prednisone ordered. Patient was told to return to the ER for any signs or symptoms worsen. Told to return immediately if any other problems arise. All questions answered. Treatment plan discussed. Patient in agreement Every effort has been made to ensure accuracy of this dictation. However, due to the limitations of electronic medical records and dictation devices, errors in charting still occur. Steaming Machine Operator, Dr. Bustillos - Lab Data Result diagrams: 05/10/22 22:12 05/10/22 22:12 Lab Results 05/10/22 05/10/22 Range/Units 22:12 22:12 WBC 10.0 (3.8-10.6) k/uL RBC 3.53 L (3.80-5.40) m/uL Hgb 10.4 L (11.4-16.0) gm/dL Hct 32.4 L (34.0-46.0) % MCV 91.7 (80.0-100.0) fL MCH 29.4 (25.0-35.0) pg MCHC 32.0 (31.0-37.0) g/dL RDW 14.1 (11.5-15.5) % Plt Count 360 (150-450) k/uL MPV 6.8 Neutrophils % 61 % Lymphocytes % 25 % Monocytes % 5 % Eosinophils % 6 % Basophils % 2 % Neutrophils # 6.1 (1.3-7.7) k/uL Lymphocytes # 2.5 (1.0-4.8) k/uL Monocytes # 0.5 (0-1.0) k/uL Eosinophils # 0.6 (0-0.7) k/uL Basophils # 0.2 (0-0.2) k/uL Hypochromasia Slight Sodium 139 (137-145) mmol/L Potassium 3.9 (3.5-5.1) mmol/L Chloride 107 (98-107) mmol/L Carbon Dioxide 25 (22-30) mmol/L Anion Gap 7 mmol/L BUN 11 (7-17) mg/dL Creatinine 0.79 (0.52-1.04) mg/dL Est GFR (CKD-EPI)AfAm 81 (>60 ml/min/1.73 sqM) Est GFR (CKD-EPI)NonAf 70 (>60 ml/min/1.73 sqM) Glucose 125 H (74-99) mg/dL Calcium 9.3 (8.4-10.2) mg/dL Total Bilirubin 0.3 (0.2-1.3) mg/dL AST 18 (14-36) U/L ALT 11 (4-34) U/L Alkaline Phosphatase 49 (38-126) U/L Total Protein 6.4 (6.3-8.2) g/dL Albumin 4.1 (3.5-5.0) g/dL Disposition Clinical Impression: Genital pruritus Disposition: HOME SELF-CARE Condition: Good Instructions (If sedation given, give patient instructions): Itchy Skin (ED) Additional Instructions: Follow-up with your regular physician as directed. Return to the ER immediately if any symptoms worsen, new symptoms arise, or any other problems develop. Is patient prescribed a controlled substance at d/c from ED?: No Referrals: Sonya Nuñez MD [Primary Care Provider] - 1-2 days Time of Disposition: 23:05
[2022-05-10 22:25] LABS: Basophils # (A) 0.2 k/uL (0-0.2); Basophils % (A) 2 %; Eosinophils # (A) 0.6 k/uL (0-0.7); Eosinophils % (A) 6 %; HCT 32.4 % (34.0-46.0); HGB 10.4 gm/dL (11.4-16.0); Hypochromasia Slight; Lymphocytes # (A) 2.5 k/uL (1.0-4.8); Lymphocytes % (A) 25 %; MCH 29.4 pg (25.0-35.0); MCV 91.7 fL (80.0-100.0); Mean Platelet Volume 6.8; Monocytes # (A) 0.5 k/uL (0-1.0); Monocytes % (A) 5 %; Neutrophils # (A) 6.1 k/uL (1.3-7.7); Neutrophils % (A) 61 %; Platelet Count 360 k/uL (150-450); RBC 3.53 m/uL (3.80-5.40); RDW 14.1 % (11.5-15.5)
[2022-05-10 22:42] LABS: Albumin 4.1 g/dL (3.5-5.0); Calcium 9.3 mg/dL (8.4-10.2); Potassium 3.9 mmol/L (3.5-5.1); Total Bilirubin 0.3 mg/dL (0.2-1.3); Total Protein 6.4 g/dL (6.3-8.2)
== END 2022-05-11 00:09 | disposition home or self-care (01) ==
LOC: EC 19:19
DX: L29.9 Pruritus, unspecified (principal); I10 Essential (primary) hypertension; I25.2 Old myocardial infarction; J44.9 Chronic obstructive pulmonary disease, unspecified; M19.90 Unspecified osteoarthritis, unspecified site; F17.200 Nicotine dependence, unspecified, uncomplicated; Z86.73 Personal history of transient ischemic attack (TIA), and cerebral infarction without residual deficits; Z79.82 Long term (current) use of aspirin; Z79.899 Other long term (current) drug therapy
CPT/HCPCS: 36415; 80053; 85025; 99283; J7512

== ENCOUNTER 2024-04-22 10:31 | Observation (INO) | payer MEDICARE, OTHER ==
--- NOTE | 2024-04-22 10:57 | ED ---
General Adult HPI - General Chief complaint: Altered Mental Status Stated complaint: AMS Time Seen by Provider: 04/22/24 10:42 Source: patient, EMS, RN notes reviewed Mode of arrival: EMS Limitations: altered mental status - History of Present Illness Initial comments: Patient is a 83-year-old female present to the emergency department for concern of confusion. Patient presents by ambulance. Patient states she feels fine has no complaints. Patient is unclear why she is here. Patient states he does live at home with Adam and wants to know where he is at. - Related Data Home Medications Medication Instructions Recorded Confirmed Gabapentin [Neurontin] 400 mg PO BID 10/05/16 11/19/19 Baclofen 10 mg PO BID 10/04/19 11/19/19 Cholecalciferol [Vitamin D3 (25 1 tab PO DAILY 10/04/19 11/19/19 Mcg = 1000 Iu)] Previous Rx's Medication Instructions Recorded Aspirin 81 mg PO DAILY #30 chew 10/07/19 Atorvastatin [Lipitor] 80 mg PO HS #30 tab 10/07/19 Loratadine [Claritin] 5 mg PO BID #0 10/07/19 Melatonin 3 mg PO HS #30 tablet 10/07/19 Metoprolol Tartrate [Lopressor] 25 mg PO BID #60 tab 10/07/19 Nitroglycerin Sl Tabs [Nitrostat] 0.4 mg SUBLINGUAL Q5M PRN #25 tab 10/07/19 Ticagrelor [Brilinta] 90 mg PO BID #60 tab 10/07/19 lisinopriL [Zestril] 10 mg PO DAILY #30 tab 10/07/19 Nitroglycerin Sl Tabs [Nitrostat] 0.4 mg SUBLINGUAL Q5M PRN tab 11/20/19 predniSONE [Deltasone] 20 mg PO DAILY #4 tab 01/19/20 predniSONE [Deltasone] 40 mg PO DIRECTED #8 tab 05/10/22 Allergies Allergy/AdvReac Type Severity Reaction Status Date / Time No Known Allergies Allergy Verified 04/22/24 13:18 Review of Systems ROS Statement: Those systems with pertinent positive or pertinent negative responses have been documented in the HPI. ROS Other: All systems not noted in ROS Statement are negative. Constitutional: Denies: fever Eyes: Denies: eye pain ENT: Denies: ear pain Respiratory: Denies: cough, dyspnea Cardiovascular: Denies: chest pain Endocrine: Denies: fatigue Gastrointestinal: Denies: abdominal pain Genitourinary: Denies: dysuria Musculoskeletal: Denies: back pain Neurological: Reports: as per HPI. Denies: headache, weakness Past Medical History Past Medical History: Asthma, COPD, CVA/TIA, Hypertension, Myocardial Infarction ([place]), Osteoarthritis ([place]) Additional Past Medical History / Comment(s): History of mild stroke in 1987; hx of osteoporosis, back pain Last Myocardial Infarction Date:: 10-04-19 History of Any Multi-Drug Resistant Organisms: None Reported Past Surgical History: Appendectomy, Heart Catheterization With Stent, Joint R eplacement, Orthopedic Surgery, Tubal Ligation Additional Past Surgical History / Comment(s): heart cath w/ stent 10-04-19,rt rotator cuff, [place] cataracts,rt knee replacement Past Anesthesia/Blood Transfusion Reactions: No Reported Reaction Date of Last Stent Placement:: 11/19/19 Past Psychological History: No Psychological Hx Reported Smoking Status: Current some day smoker Past Alcohol Use History: None Reported Past Drug Use History: None Reported - Past Family History Sister(s) Family Medical History: Cancer Additional Family Medical History / Comment(s): ovarian Brother(s) Family Medical History: Deep Vein Thrombosis (DVT) General Exam Limitations: no limitations General appearance: alert, in no apparent distress Head exam: Present: normocephalic Eye exam: Present: normal appearance, PERRL, EOMI. Absent: nystagmus ENT exam: Present: normal oropharynx Neck exam: Present: normal inspection. Absent: tenderness, meningismus Respiratory exam: Present: normal lung sounds bilaterally Cardiovascular Exam: Present: regular rate, normal rhythm GI/Abdominal exam: Present: soft. Absent: distended, tenderness Extremities exam: Present: normal inspection. Absent: pedal edema, calf tenderness Neurological exam: Present: alert, CN II-XII intact. Absent: motor sensory deficit Expanded Neurological exam: Present: protecting the airway Patient oriented to: Present: person, place. Absent: time Speech: Present: fluid speech Motor strength exam: RUE: 5, LUE: 5, RLE: 5, LLE: 5 Eye Response: (4) open spontaneously Motor Response: (6) obeys commands Verbal Response: (4) confused conversation Psychiatric exam: Present: normal affect, normal mood Skin exam: Present: normal color Course Vital Signs 04/22/24 04/22/24 10:42 12:15 Temperature 99.3 F 98.5 F Pulse Rate 91 89 Respiratory 16 20 Rate Blood Pressure 161/73 133/78 O2 Sat by Pulse 97 98 Oximetry EKG Findings - EKG Results: EKG: interpreted by BOUBACARD (Left axis. Left bundle branch block.), sinus rhythm Medical Decision Making - Medical Decision Making Was pt. sent in by a medical professional or institution (, PA, PRODUCTION HAND, urgent care, hospital, or intermediate...) When possible be specific @ -No Did you speak to anyone other than the patient for history (EMS, parent, family, police, friend...)? What history was obtained from this source @ -Adam does arrive and provides further history including patient's confusion this morning. Patient was disoriented and could not tell if it was day or nighttime. Patient had a conversation with a friend and did not understand what was going on. Patient forgot about this conversation. Did you review nursing and triage notes (agree or disagree)? Why? @ -I reviewed and agree with nursing and triage notes Were old charts reviewed (outside hosp., previous admission, EMS record, old EKG, old radiological studies, urgent care reports/EKG's, intermediate records)? Report findings @ -No old charts were reviewed Differential Diagnosis (chest pain, altered mental status, abdominal pain women, abdominal pain men, vaginal bleeding, weakness, fever, dyspnea, syncope, headache, dizziness, GI bleed, back pain, seizure, CVA, palpatations, mental health, musculoskeletal)? @ -Differential Altered Mental Status: Hypoglycemia, DKA, hypercapnia, ETOH, overdose, CO poisoning, trauma, myxedema coma, HTN encephalopathy, infection, encephalitis, psychosis, intercranial hemorrhage, hepatic encephalopathy, meningitis, CVA, this is not meant to be an all-inclusive list EKG interpreted by me (3pts min.). @ -As above X-rays interpreted by me (1pt min.). @ -Chest x-ray shows no acute process CT interpreted by me (1pt min.). @ -CT scan of the brain reveals no acute process U/S interpreted by me (1pt. min.). @ -None done What testing was considered but not performed or refused? (CT, X-rays, U/S, labs)? Why? @ -None What meds were considered but not given or refused? Why? @ -None Did you discuss the management of the patient with other professionals (professionals i.e. , PA, PRODUCTION HAND, lab, RT, psych nurse, director of social work, greens keeper, teacher, geospatial program management officer, watch case polisher)? Give summary @ -Case was discussed with Dr. Saenz who will admit covering for Dr. Garcia, who admits for Dr. Thayer. Was smoking cessation discussed for >3mins.? @ -No Was critical care preformed (if so, how long)? @ -No Were there social determinants of health that impacted care today? How? (Homelessness, low income, unemployed, alcoholism, drug addiction, transportation, low edu. Level, literacy, decrease access to med. care, [facility], rehab)? @ -No Was there de-escalation of care discussed even if they declined (Discuss DNR or withdrawal of care, Hospice)? DNR status @ -No What co-morbidities impacted this encounter? (DM, HTN, Smoking, COPD, CAD, Cancer, CVA, ARF, Chemo, Hep., AIDS, mental health diagnosis, sleep apnea, morbid obesity)? @ -None Was patient admitted / discharged? Hospital course, mention meds given and route, prescriptions, significant lab abnormalities, going to OR and other pertinent info. @ -Patient presents with confusion. Evaluation unremarkable. Patient reevalua tayla, patient and family updated. Patient will be admitted with neurology evaluation. Undiagnosed new problem with uncertain prognosis? @ -No Drug Therapy requiring intensive monitoring for toxicity (Heparin, Nitro, Insulin, Cardizem)? @ -No Were any procedures done? @ -No Diagnosis/symptom? @ -Altered mental status episode Acute, or Chronic, or Acute on Chronic? @ -Acute Uncomplicated (without systemic symptoms) or Complicated (systemic symptoms)? @ -Default Side effects of treatment? @ -No Exacerbation, Progression, or Severe Exacerbation? @ -No Poses a threat to life or bodily function? How? (Chest pain, [place], [place], pneumonia, PE, COPD, DKA, ARF, appy, cholecystitis, CVA, Diverticulitis, Homicidal, Suicidal, threat to staff... and all critical care pts) @ -No - Lab Data Result diagrams: 04/22/24 11:18 04/22/24 11:18 Lab Results 04/22/24 04/22/24 04/22/24 Range/Units 11:18 11:18 11:18 WBC 9.8 (3.8-10.6) k/uL RBC 3.92 (3.80-5.40) m/uL Hgb 11.9 (11.4-16.0) gm/dL Hct 35.7 (34.0-46.0) % MCV 91.0 (80.0-100.0) fL MCH 30.4 (25.0-35.0) pg MCHC 33.4 (31.0-37.0) g/dL RDW 13.9 (11.5-15.5) % Plt Count 268 (150-450) k/uL MPV 7.5 Neutrophils % 70 % Lymphocytes % 18 % Monocytes % 7 % Eosinophils % 3 % Basophils % 1 % Neutrophils # 6.8 (1.3-7.7) k/uL Lymphocytes # 1.8 (1.0-4.8) k/uL Monocytes # 0.7 (0-1.0) k/uL Eosinophils # 0.3 (0-0.7) k/uL Basophils # 0.1 (0-0.2) k/uL PT 10.1 (10.0-12.5) sec INR 0.9 (<1.2) APTT 22.7 (22.0-30.0) sec Sodium 140 (137-145) mmol/L Potassium 4.8 (3.5-5.1) mmol/L Chloride 112 H (98-107) mmol/L Carbon Dioxide 21 L (22-30) mmol/L Anion Gap 7 mmol/L BUN 41 H (7-17) mg/dL Creatinine 0.96 (0.52-1.04) mg/dL Est GFR (CKD-EPI)AfAm 62 (>60 ml/min/1.73 sqM) Est GFR (CKD-EPI)NonAf 54 (>60 ml/min/1.73 sqM) Glucose 108 H (74-99) mg/dL Calcium 9.9 (8.4-10.2) mg/dL Total Bilirubin 0.6 (0.2-1.3) mg/dL AST 18 (14-36) U/L ALT 9 (4-34) U/L Alkaline Phosphatase 49 (38-126) U/L Troponin I (0.000-0.034) ng/mL Total Protein 6.5 (6.3-8.2) g/dL Albumin 4.0 (3.5-5.0) g/dL Urine Color Urine Appearance (Clear) Urine pH (5.0-8.0) Ur Specific [place] (1.001-1.035) Urine Protein (Negative) Urine Glucose (UA) (Negative) Urine Ketones (Negative) Urine Blood (Negative) Urine Nitrite (Negative) Urine Bilirubin (Negative) Urine Urobilinogen (<2.0) mg/dL Ur Leukocyte Esterase (Negative) 04/22/24 04/22/24 Range/Units 11:18 12:32 WBC (3.8-10.6) k/uL RBC (3.80-5.40) m/uL Hgb (11.4-16.0) gm/dL Hct (34.0-46.0) % MCV (80.0-100.0) fL MCH (25.0-35.0) pg MCHC (31.0-37.0) g/dL RDW (11.5-15.5) % Plt Count (150-450) k/uL MPV Neutrophils % % Lymphocytes % % Monocytes % % Eosinophils % % Basophils % % Neutrophils # (1.3-7.7) k/uL Lymphocytes # (1.0-4.8) k/uL Monocytes # (0-1.0) k/uL Eosinophils # (0-0.7) k/uL Basophils # (0-0.2) k/uL PT (10.0-12.5) sec INR (<1.2) APTT (22.0-30.0) sec Sodium (137-145) mmol/L Potassium (3.5-5.1) mmol/L Chloride (98-107) mmol/L Carbon Dioxide (22-30) mmol/L Anion Gap mmol/L BUN (7-17) mg/dL Creatinine (0.52-1.04) mg/dL Est GFR (CKD-EPI)AfAm (>60 ml/min/1.73 sqM) Est GFR (CKD-EPI)NonAf (>60 ml/min/1.73 sqM) Glucose (74-99) mg/dL Calcium (8.4-10.2) mg/dL Total Bilirubin (0.2-1.3) mg/dL AST (14-36) U/L ALT (4-34) U/L Alkaline Phosphatase (38-126) U/L Troponin I <0.012 (0.000-0.034) ng/mL Total Protein (6.3-8.2) g/dL Albumin (3.5-5.0) g/dL Urine Color Colorless Urine Appearance Clear (Clear) Urine pH 5.5 (5.0-8.0) Ur Specific [place] 1.018 (1.001-1.035) Urine Protein Negative (Negative) Urine Glucose (UA) Negative (Negative) Urine Ketones Negative (Negative) Urine Blood Negative (Negative) Urine Nitrite Negative (Negative) Urine Bilirubin Negative (Negative) Urine Urobilinogen <2.0 (<2.0) mg/dL Ur Leukocyte Esterase Negative (Negative) Disposition Clinical Impression: Altered mental status Disposition: ADMITTED IP TO THIS HOSP Is patient prescribed a controlled substance at d/c from ED?: No Referrals: Renzo Thayer MD [Primary Care Provider] - 1-2 days Time of Disposition: 13:32
[2024-04-22 11:50] LABS: Basophils # (A) 0.1 k/uL (0-0.2); Basophils % (A) 1 %; Eosinophils # (A) 0.3 k/uL (0-0.7); Eosinophils % (A) 3 %; HCT 35.7 % (34.0-46.0); HGB 11.9 gm/dL (11.4-16.0); Lymphocytes # (A) 1.8 k/uL (1.0-4.8); Lymphocytes % (A) 18 %; MCH 30.4 pg (25.0-35.0); MCHC 33.4 g/dL (31.0-37.0); Mean Platelet Volume 7.5; Monocytes # (A) 0.7 k/uL (0-1.0); Monocytes % (A) 7 %; Neutrophils # (A) 6.8 k/uL (1.3-7.7); Neutrophils % (A) 70 %; Platelet Count 268 k/uL (150-450); RBC 3.92 m/uL (3.80-5.40); RDW 13.9 % (11.5-15.5); WBC 9.8 k/uL (3.8-10.6)
[2024-04-22 11:59] LABS: INR 0.9 (<1.2); Partial Thromboplastin Time 22.7 sec (22.0-30.0); Prothrombin Time 10.1 sec (10.0-12.5)
[2024-04-22 12:03] LABS: ALT 9 U/L (4-34); African American GFR (CKD) 62 (>60 ml/min/1.73 sqM); Anion Gap 7 mmol/L; Blood Urea Nitrogen 41 mg/dL (7-17); Calcium 9.9 mg/dL (8.4-10.2); Carbon Dioxide 21 mmol/L (22-30); Chloride 112 mmol/L (98-107); Glucose 108 mg/dL (74-99); Non-African American GFR(CKD) 54 (>60 ml/min/1.73 sqM); Sodium 140 mmol/L (137-145); Total Bilirubin 0.6 mg/dL (0.2-1.3); Total Protein 6.5 g/dL (6.3-8.2)
--- NOTE | 2024-04-22 12:27 | XR ---
EXAMINATION TYPE: XR chest 2V DATE OF EXAM: 04/22/2024 11:46 AM CLINICAL INDICATION:Female, 83 years old with history of altered mental status; [facility] COMPARISON: Chest radiographs from 02/02/2020 TECHNIQUE: XR chest 2V Frontal and lateral views of the chest. FINDINGS: Lungs/Pleura: There is no evidence of pleural effusion, focal consolidation, or pneumothorax. Pulmonary vascularity: Unremarkable. Heart/mediastinum: Cardiomediastinal silhouette is unremarkable. Musculoskeletal: No acute osseous pathology. Other findings: None IMPRESSION: No acute cardiopulmonary disease/process.
[2024-04-22 12:31] LABS: AST 18 U/L (14-36); Alkaline Phosphatase 49 U/L (38-126); Potassium 4.8 mmol/L (3.5-5.1)
--- NOTE | 2024-04-22 12:31 | CT ---
EXAMINATION TYPE: CT brain wo con CT DLP: 1095 mGycm, Automated exposure control for dose reduction was used. DATE OF EXAM: 04/22/2024 12:02 PM COMPARISON: None. CLINICAL INDICATION:Female, 83 years old with history of Altered mental status, AMS TECHNIQUE: Brain: Axial CT images of the brain were obtained with coronal and sagittal reformats created and rev iewed. Contrast used: None. Oral contrast used: None. FINDINGS: Brain: Extra-axial spaces: No abnormal extra-axial fluid collections. Ventricular system: Dilatation in proportion to cerebral atrophy. Cerebral parenchyma: Cerebral atrophy. No acute intraparenchymal hemorrhage or mass effect. The peres -white junction is well differentiated. Scattered hypoattenuating areas are seen within the white mat ter. Cerebellum: Unremarkable. Mass effect: No evidence of midline shift. Intracranial vasculature: Atherosclerotic calcifications of the intracranial vessels. Soft tissues: Normal. Calvarium/osseous structures: No depressed skull fracture. Paranasal sinuses and mastoid air cells: Mild scattered paranasal sinus disease. Visualized orbits: Bilateral aphakia IMPRESSION: 1. No acute intracranial process. 2. Nonspecific white matter changes, likely secondary to chronic small vessel ischemic disease.
[2024-04-22 13:06] LABS: Appearance,Urine Clear (Clear); Bilirubin,Urine Negative (Negative); Blood,Urine Negative (Negative); Color,Urine Colorless; Glucose,Urine (UA) Negative (Negative); Ketones,Urine Negative (Negative); Leukocyte Esterase,Urine Negative (Negative); Nitrite,Urine Negative (Negative); PH, Urine 5.5 (5.0-8.0); Protein,Urine Negative (Negative); Specific Gravity,Urine 1.018 (1.001-1.035); Urobilinogen,Urine <2.0 mg/dL (<2.0)
[2024-04-22] MEDS ORDERED: NALOXONE 0.4 MG/ML 1 ML VIAL IV PRN (13:32)
[2024-04-22] MEDS ORDERED: BACLOFEN 10 MG TAB PO PRN (13:33)
[2024-04-22] MEDS ORDERED: hydrOXYzine HCL 25 MG TAB PO PRN (13:33)
[2024-04-22] MEDS: metFORMIN 500 MG TAB PO SCH (17:57)
[2024-04-22] MEDS: METOPROLOL SUCCINATE (ER) 25 MG TAB.ER.24H PO SCH (19:53)
--- NOTE | 2024-04-22 22:06 | P.HPIM ---
History of Present Illness H&P Date: 04/22/24 Chief Complaint: Confusion Patient is a 83-year-old female with a past medical history of hypertension, coronary artery with history of stent placement in 2019, CVA/TIA with no residual weakness, chronic back pain and history of right knee replacement and currently everyday smoker was brought to the hospital by EMS due to confusion, altered mental status. Patient states that she confused and did not realize it is day or night and also talking to herself. Patient lives at home with her fianc. Denies any recent illnesses. Currently patient seems to be more awake and oriented. No nausea vomiting abdominal pain or diarrhea. Denies any dysuria or hematuria. No cough or sputum production. Denies any recent illnesses. Denies any sick contacts or recent travel. Patient denies any focal weakness. No witnessed seizures noted. EKG showed sinus rhythm with occasional supraventricular premature complexes. Chest x-ray showed no acute cardiopulmonary process. CT head showed no acute intracranial process. Nonspecific white matter changes likely secondary to chronic small vessel ischemic disease. Laboratory showed WBC 9.8 hemoglobin 11.9 and platelets 268 Sodium 140 potassium 4.8 chloride 112 bicarb is 21 BUN 41 and creatinine 0.96 and blood sugar 108 ammonia less than 9 liver enzymes not elevated albumin 4.0 Urinalysis is negative for infection. Review of Systems Constitutional: Patient denies any fever or chills . No generalized weakness or weight loss. Abdomen: Patient denied nausea vomiting and diarrhea and abdominal pain. Cardiovascular: Patient denies any chest pain or short of breath no palpitations. Respiratory: patient denied any cough or sputum production. No shortness of breath Neurologic: Patient denied any numbness or tingling. no headache. Musculoskeletal: Patient denies any complaints of joint swelling or deformity. Skin: Negative Psychiatric: Negative Endocrine: No heat or cold intolerance. No recent weight gain. Genitourinary: No dysuria or hematuria. All other 14 point ROS negative except the above Past Medical History Past Medical History: Asthma, COPD, CVA/TIA, Hypertension, Myocardial Infarction ([place]), Osteoarthritis (OA) Additional Past Medical History / Comment(s): History of mild stroke in 1987; hx of osteoporosis, back pain Last Myocardial Infarction Date:: 10-04-19 History of Any Multi-Drug Resistant Organisms: None Reported Past Surgical History: Appendectomy, Heart Catheterization With Stent, Joint Replacement, Orthopedic Surgery, Tubal Ligation Additional Past Surgical History / Comment(s): heart cath w/ stent 10-04-19, rt rotator cuff, [place] cataracts, rt knee replacement Past Anesthesia/Blood Transfusion Reactions: No Reported Reaction Date of Last Stent Placement:: 11/19/19 Smoking Status: Current every day smoker - Past Family History Sister(s) Family Medical History: Cancer Additional Family Medical History / Comment(s): ovarian Brother(s) Family Medical History: Deep Vein Thrombosis (DVT) Medications and Allergies Home Medications Medication Instructions Recorded Confirmed Type Aspirin 81 mg PO DAILY #30 chew 10/07/19 04/22/24 Rx lisinopriL [Zestril] 10 mg PO DAILY #30 tab 10/07/19 04/22/24 Rx Aspirin/Acetaminophen/Caffeine 1 - 2 tab PO DAILY PRN 04/22/24 04/22/24 History [Excedrin Migraine Caplet] Baclofen [Lioresal] 20 mg PO BID PRN 04/22/24 04/22/24 History Budesonide [Pulmicort] 0.5 mg INHALATION RT-BID 04/22/24 04/22/24 History Fluticasone/Umeclidin/Vilanter 1 puff INHALATION RT-DAILY 04/22/24 04/22/24 History [Trelegy Ellipta 200-62.5-25] Hydrocortisone Cream 1 applic TOPICAL BID PRN 04/22/24 04/22/24 History [Hydrocortisone 2.5% Cream] Ibuprofen [Motrin] 800 mg PO Q8H PRN 04/22/24 04/22/24 History Iron 28mg 28 mg PO DAILY 04/22/24 04/22/24 History Loratadine 10 mg PO DAILY 04/22/24 04/22/24 History Metoprolol Succinate (ER) [Toprol 25 mg PO BID 04/22/24 04/22/24 History Xl] Triamcinolone 0.025% Cream 1 applic TOPICAL BID PRN 04/22/24 04/22/24 History [Kenalog 0.025% Cream] Vit C/E/Zn/Coppr/Lutein/Zeaxan 1 cap PO BID 04/22/24 04/22/24 History [Preservision Areds 2 Softgel] Women Multivitamin Gummy 2 tab PO DAILY 04/22/24 04/22/24 History hydrOXYzine HCL [Atarax] 25 mg PO TID PRN 04/22/24 04/22/24 History metFORMIN HCL ER [Glucophage XR] 500 mg PO W/SUPPER 04/22/24 04/22/24 History Allergies Allergy/AdvReac Type Severity Reaction Status Date / Time No Known Allergies Allergy Verified 04/22/24 13:18 Physical Exam Vitals: Vital Signs Temp Pulse Pulse Resp BP BP Pulse Ox 04/22/24 20:00 98.2 F 85 16 112/72 96 04/22/24 17:45 98.5 F 91 16 144/84 94 L 04/22/24 17:15 99.5 F 80 20 152/79 94 L 04/22/24 15:35 92 18 145/90 94 L 04/22/24 12:15 98.5 F 89 20 133/78 98 04/22/24 10:42 99.3 F 91 16 161/73 97 Intake and Output 04/22/24 04/22/24 04/22/24 06:59 14:59 22:59 Output Total 300 Balance -300 Output: Urine 300 Straight 300 Other: # Voids 1 Weight 78.471 kg 78.471 kg PHYSICAL EXAMINATION: Patient is lying in the bed comfortably, no acute distress, awake alert and oriented.. HEENT: Normocephalic. Neck is supple. Pupils reactive. Nostrils clear. Oral cavity is moist. Neck reveals no JVD, carotid bruits, or thyromegaly. CHEST EXAMINATION: Trachea is central. Symmetrical expansion. Lung strickland clear to auscultation and percussion. CARDIAC: Normal S1, S2 with no gallops. No murmurs ABDOMEN: Soft. Bowel sounds normal. No organomegaly. No abdominal bruits. Extremities: reveal no edema. No clubbing or cyanosis Neurologically awake, alert, oriented x 2-3 with well-coordinated movements. No gross focal deficits noted Skin: No rash or skin lesions. Psychiatric: Coperative. Nonsuicidal Musculoskeletal: No joint swelling or deformity. Normal range of motion. Results CBC & Chem 7: 04/22/24 11:18 04/22/24 11:18 Labs: Abnormal Lab Results - Last 24 Hours (Table) 04/22/24 Range/Units 11:18 Chloride 112 H (98-107) mmol/L Carbon Dioxide 21 L (22-30) mmol/L BUN 41 H (7-17) mg/dL Glucose 108 H (74-99) mg/dL Thrombosis Risk Factor Assmnt - DVT/VTE Prophylaxis DVT/VTE Prophylaxis: Pharmacologic Prophylaxis ordered - Choose All That Apply Any of the Below Risk Factors Present?: Yes Each Factor Represents 1 point: Abnormal pulmonary function (COPD), Medical pt on bed rest, Obesity (BMI >25), Swollen legs (current), Varicose veins Each Risk Factor Represents 3 Points: Age 75 years or older, Family history of DVT/PE Thrombosis Risk Factor Assessment Total Risk Factor Score: 11 Thrombosis Risk Factor Assessment Level: High Risk Assessment and Plan Assessment: Altered mental status likely due to acute delirium versus rule out CVA. Mentation is improving Dehydration and volume depletion Hypertension Diabetes type 2 [id number] on metformin at home Coronary artery history of stent placement in 2019, history of CVA/TIA with no residual weakness Chronic back pain History of right total knee arthroplasty Currently everyday smoker DVT prophylaxis with heparin subcu Plan: Patient will be continued on gentle IV hydration. Follow-up TSH, B12 folate and A1c levels. Urinalysis is negative for infection. Viral panel and UDS was ordered. Continue with home medications and follow-up closely. DuoNebs as needed. Neurology was consulted for evaluation. Time with Patient: Greater than 30
[2024-04-22] MEDS: BUDESONIDE 0.5 MG/2 ML NEBU INHALATION SCH (22:09)
[2024-04-22] MEDS: VIT A,C & E-LUTEIN-MINERALS 1 EACH TAB PO SCH (22:58)
[2024-04-23] MEDS: HEPARIN SODIUM,PORCINE 5,000 UNIT/ML 1 ML VIAL SQ SCH (00:59)
[2024-04-23 03:20] LABS: Vitamin B12 <150.0 pg/mL (200.0-944.0)
[2024-04-23] MEDS: SODIUM CHLORIDE 0.9% 1,000 ML IV SCH (05:24)
[2024-04-23] MEDS: IPRATROPIUM 0.5 MG/2.5 ML NEBU INHALATION SCH (07:35)
[2024-04-23 08:18] VITALS: RESP 20
[2024-04-23 08:40] LABS: Urine Alcohol Negative (Negative); Urine Barbiturate Negative (Negative); Urine Cocaine Negative (Negative); Urine Methadone Negative (Negative); Urine Opiates Negative (Negative); Urine Phencyclidine Negative (Negative)
[2024-04-23] MEDS: FERROUS SULFATE 325 MG TAB PO SCH (08:56)
[2024-04-23] MEDS: LORATADINE 10 MG TAB PO SCH (08:56)
[2024-04-23] MEDS: lisinopriL 10 MG TAB PO SCH (08:56)
[2024-04-23] MEDS: ASPIRIN 81 MG PO SCH (08:56)
[2024-04-23] MEDS: MULTIVITAMINS, THERA 1 EACH TAB PO SCH (08:56)
[2024-04-23 10:44] LABS: Basophils # (A) 0.06 X 10*3/uL (0.00-0.10); Basophils % (A) 0.7 %; Eosinophils # (A) 0.29 X 10*3/uL (0.04-0.35); Eosinophils % (A) 3.4 %; HCT 33.7 % (37.2-46.3); HGB 10.8 g/dL (12.0-15.0); Lymphocytes # (A) 2.73 X 10*3/uL (0.90-5.00); Lymphocytes % (A) 31.7 %; MCH 29.4 pg (27.0-32.0); MCV 91.8 FL (80.0-97.0); Monocytes # (A) 0.71 X 10*3/uL (0.20-1.00); Monocytes % (A) 8.3 %; NRBC Per 100 WBC 0 X 10*3/uL (0.00-0.01); Neutrophils # (A) 4.78 X 10*3/uL (1.80-7.70); Neutrophils % (A) 55.6 %; Platelet Count 273 X 10*3/uL (140-440); RBC 3.67 X 10*6/uL (4.10-5.20)
--- NOTE | 2024-04-23 11:02 | MR ---
EXAMINATION TYPE: MR brain wo/w con DATE OF EXAM: 04/23/2024 10:57 AM CLINICAL INDICATION:Female, 83 years old with history of confusion; COMPARISON: 05/05/2015 TECHNIQUE: Multi planar, multi sequence imaging was performed through the brain including: T1, T2, In version recovery, susceptibility weighted imaging and gradient echo imaging and Diffusion weighted im aging. The patient was then given intravenous contrast and multi planar, T1 fat-saturation images wer e obtained. IV Contrast: 8 cc Gadavist FINDINGS: Mild cerebral atrophy with proportional dilation of ventricular system. Diffusion-weighted imaging s hows no evidence of restricted diffusion to suggest acute/subacute infarct. Intracranial arterial richard w voids are maintained. Midline structures show no abnormality. Scattered foci of high T2 signal inte nsity are seen within the periventricular white matter. The susceptibility weighted images do not rev eal any evidence for micro-hemorrhage. After administration of gadolinium, no abnormal enhancement is seen. The bone marrow signal is within normal limits. Paranasal sinuses and mastoid air cells: Mild scattered paranasal sinus disease. Visualized orbits: Bilateral aphakia. IMPRESSION: 1. No evidence of intracranial mass, acute/subacute infarct, or abnormal enhancement. 2. Nonspecific white matter changes, likely related to small vessel ischemic disease.
[2024-04-23 11:09] LABS: ALT 6 U/L (8-44); AST 13 U/L (13-35); Albumin/Globulin Ratio 2.11 Ratio (1.60-3.17); Alkaline Phosphatase 43 U/L (41-126); BUN/Creat Ratio 35.75 Ratio (12.00-20.00); Blood Urea Nitrogen 28.6 mg/dL (9.0-27.0); Calcium 10.1 mg/dL (8.7-10.3); Carbon Dioxide 23.6 mmol/L (21.6-31.8); Chloride 107 mmol/L (96-109); Globulin 1.9 g/dL (1.6-3.3); Glucose 97 mg/dL (70-110); Potassium 4.7 mmol/L (3.5-5.5); Sodium 140 mmol/L (135-145); Total Bilirubin 0.5 mg/dL (0.3-1.2); Total Protein 5.9 g/dL (6.2-8.2)
[2024-04-23 13:10] VITALS: BP 109/70; PULSE 72; TEMP 98.1
[2024-04-23] MEDS: CYANOCOBALAMIN 1,000 MCG/ML 1 ML VIAL IM ONE (14:31)
--- NOTE | 2024-04-23 16:13 | P.CNNES ---
History of Present Illness Consult date: 04/23/24 Requesting physician: Walker Nice Reason for Consult: episode of confusion History of Present Illness: This is an 83-year-old woman who present emergency department because of confusion. Patient stated that she did not act herself and felt very off and her behavioral. She lives at home with her fianc. She denies any headache, nausea vomiting, focal weakness, slurred speech or focal deficits. She feels back to baseline. She denies any history of seizures. Some of the workup during this hospital visit consisted of: Patient is afebrile. Vitamin B12 is less than 150 Serum folate is 15.50 TSH is 1.160 Hemoglobin A1c 6.0 I reviewed the rest of the lab workup. Urine drug screen is negative Urinalysis is negative for any underlying infection CT head is negative for any acute intracranial process. I reviewed the CT and I agree with the report. MRI of the brain there is no evidence of intracranial mass, acute/subacute infarct or abnormal enhancement. Nonspecific white matter changes, related to small vessel ischemic disease. I personally reviewed MRI and agree there is no acute or subacute CVA. Review of Systems Review of system: The 10 point system was reviewed and apparent positive and negative per HPI. Past Medical History Past Medical History: Asthma, COPD, CVA/TIA, Hypertension, Myocardial Infarction ([place]), Osteoarthritis ([place]) Additional Past Medical History / Comment(s): History of mild stroke in 1987; hx of osteoporosis, back pain Last Myocardial Infarction Date:: 10-04-19 History of Any Multi-Drug Resistant Organisms: None Reported Past Surgical History: Appendectomy, Heart Catheterization With Stent, Joint Replacement, Orthopedic Surgery, Tubal Ligation Additional Past Surgical History / Comment(s): heart cath w/ stent 10-04-19, rt rotator cuff, [place] cataracts, rt knee replacement Past Anesthesia/Blood Transfusion Reactions: No Reported Reaction Date of Last Stent Placement:: 11/19/19 Smoking Status: Current every day smoker - Past Family History Sister(s) Family Medical History: Cancer Additional Family Medical History / Comment(s): ovarian Brother(s) Family Medical History: Deep Vein Thrombosis (DVT) Medications and Allergies Home Medications Medication Instructions Recorded Confirmed Type Aspirin 81 mg PO DAILY #30 chew 10/07/19 04/22/24 Rx Aspirin/Acetaminophen/Caffeine 1 - 2 tab PO DAILY PRN 04/22/24 04/22/24 History [Excedrin Migraine Caplet] Budesonide [Pulmicort] 0.5 mg INHALATION RT-BID 04/22/24 04/22/24 History Fluticasone/Umeclidin/Vilanter 1 puff INHALATION RT-DAILY 04/22/24 04/22/24 History [Trelegy Ellipta 200-62.5-25] Hydrocortisone Cream 1 applic TOPICAL BID PRN 04/22/24 04/22/24 History [Hydrocortisone 2.5% Cream] Ibuprofen [Motrin] 800 mg PO Q8H PRN 04/22/24 04/22/24 History Iron 28mg 28 mg PO DAILY 04/22/24 04/22/24 History Metoprolol Succinate (ER) [Toprol 25 mg PO BID 04/22/24 04/22/24 History XL] Triamcinolone 0.025% Cream 1 applic TOPICAL BID PRN 04/22/24 04/22/24 History [Kenalog 0.025% Cream] Vit C/E/Zn/Coppr/Lutein/Zeaxan 1 cap PO BID 04/22/24 04/22/24 History [Preservision Areds 2 Softgel] Women Multivitamin Gummy 2 tab PO DAILY 04/22/24 04/22/24 History metFORMIN HCL ER [Glucophage XR] 500 mg PO W/SUPPER 04/22/24 04/22/24 History Baclofen 5 mg PO TID PRN #30 tablet 04/23/24 Rx Cyanocobalamin [Vitamin B-12] 500 mcg PO DAILY #90 tab 04/23/24 Rx guaiFENesin [Mucinex] 600 mg PO TID #21 tab 04/23/24 Rx Allergies Allergy/AdvReac Type Severity Reaction Status Date / Time No Known Allergies Allergy Verified 04/22/24 13:18 Physical Examination - Vital Signs Vital Signs: Vital Signs Temp Pulse Pulse Resp BP BP Pulse Ox 04/23/24 12:18 98.1 F 72 20 109/70 95 04/23/24 11:35 73 04/23/24 11:28 70 04/23/24 07:46 73 04/23/24 07:36 70 04/23/24 07:04 97.9 F 74 20 114/69 98 04/23/24 01:07 98.3 F 75 16 103/65 94 L 04/22/24 22:20 72 04/22/24 22:10 76 04/22/24 20:00 98.2 F 85 16 112/72 96 04/22/24 17:45 98.5 F 91 16 144/84 94 L 04/22/24 17:15 99.5 F 80 20 152/79 94 L Intake and Output 04/23/24 04/23/24 04/23/24 06:59 14:59 22:59 Intake Total 590 Balance 590 Intake: Oral 590 Other: # Voids 3 1 GENERAL: The patient is lying in bed and is not in acute distress. NEUROLOGICAL: Higher mental function: The patient is awake, alert, oriented to self, place and time. Patient is following commands. No aphasia and no neglect. Cranial nerves: The pupils are round, equal and reactive to light and accommodation. Visual strickland are full to confrontation throughout. Extraocular movement is intact no nystagmus is noted. Facial sensation is normal to touch throughout. The facial strength is normal throughout. Hearing is normal bilaterally to hand rub. Tongue is midline and moved [id number] without any difficulty. No dysarthria is noted. Shoulder shrug is normal bilaterally. Motor: The strength is 5 over 5 throughout. Normal tone and bulk. Cerebellum: Normal finger to nose bilaterally. Has end action tremor bilaterally. Sensation: Sensation is normal to touch throughout. Reflexes (right/left): 2+ throughout except ankle are 1+. Plantars are downgoing bilaterally. Results - Laboratory Findings CBC and BMP: 04/23/24 07:07 04/23/24 07:07 Abnormal Lab Findings: Abnormal Labs 04/22/24 04/22/24 04/23/24 11:18 11:18 07:07 RBC 3.67 L Hgb 10.8 L Hct 33.7 L MPV 9.0 L Chloride 112 H Carbon Dioxide 21 L BUN 41 H BUN/Creatinine Ratio Glucose 108 H ALT Total Protein Vitamin B12 <150.0 L 04/23/24 07:07 RBC Hgb Hct MPV Chloride Carbon Dioxide BUN 28.6 H BUN/Creatinine Ratio 35.75 H Glucose ALT 6 L Total Protein 5.9 L Vitamin B12 Assessment and Plan Assessment: This is an 83-year-old woman who presents because of episode of confusion. She was found to have vitamin B12 deficiency. Her MRI of the brain is unremarkable Encephalopathy due to vitamin B12 deficiency/Metabolic encephalopathy. MRI of the brain is unremarkable for any acute or subacute stroke.---mentation improved Vitamin B12 deficiency and the level is less than 150. History of stroke/TIA Coronary artery disease status post stent Hypertension Plan: MRI of the brain is unremarkable for any acute or subacute process. The EEG preliminary report is mild encephalopathy but no seizure or discharges noted For vitamin B12 deficiency patient was given vitamin B12 1000 mcg IM once by the primary team then was started on 1000 mcg daily She is on aspirin 81 mg daily. Will defer the rest of the medical management to primary team. There is no further neurological workup. Will sign off. Please reconsult if needed. Time with Patient: Greater than 30
--- NOTE | 2024-04-23 20:19 | EEG ---
ELECTROENCEPHALOGRAM REPORT CLINICAL HISTORY: This is an 83-year-old woman with altered mental status. The video EEG is obtained to evaluate for seizure epileptiform activity. RELEVANT MEDICATION: The patient is not on any antiepileptic drugs. EEG TYPE: A routine 21-channel EEG with video using the 10/20 electrode placement system. DESCRIPTION: Wakefulness is obtained. During awake state, the posterior-dominant rhythm consists of [id number] voltage of 7 to 8 hertz activity that is well modulated, and well sustained. There is no physiological stage 2 sleep architecture. There is no focal slowing. Interictal and ictal is none. ACTIVATION PROCEDURE: Photic stimulation did not evoke a posterior driving response. There is no abnormality during the photic stimulation. Hyperventilation is not performed. CLINICAL INTERPRETATION: This is an abnormal routine EEG. The background slowing is suggestive of mild encephalopathy. There is no focal slowing, epileptiform discharge, or seizure on the EEG. Clinical correlation is recommended. SEMAJ / RANDIN: [id number] /
--- NOTE | 2024-04-23 21:19 | P.DS ---
Providers Date of admission: 04/22/24 13:33 Expected date of discharge: 04/23/24 Attending physician: Fortino Garcia Consults: 04/22/24 13:32 Consult Physician Routine Consulting Provider: Rudy Strong Consult Reason/Comments: Episode of confusion Do you want consulting provider notified?: Yes Primary care physician: [facility] Course: Chief Complaint: Confusion Patient is a 83-year-old female with a past medical history of hypertension, coronary artery with history of stent placement in 2019, CVA/TIA with no residual weakness, chronic back pain and history of right knee replacement and currently everyday smoker was brought to the hospital by EMS due to confusion, altered mental status. Patient states that she confused and did not realize it is day or night and also talking to herself. Patient lives at home with her fianc. Denies any recent illnesses. Currently patient seems to be more awake and oriented. No nausea vomiting abdominal pain or diarrhea. Denies any dysuria or hematuria. No cough or sputum production. Denies any recent illnesses. Denies any sick contacts or recent travel. Patient denies any focal weakness. No witnessed seizures noted. EKG showed sinus rhythm with occasional supraventricular premature complexes. Chest x-ray showed no acute cardiopulmonary process. CT head showed no acute intracranial process. Nonspecific white matter changes likely secondary to chronic small vessel ischemic disease. Laboratory showed WBC 9.8 hemoglobin 11.9 and platelets 268 Sodium 140 potassium 4.8 chloride 112 bicarb is 21 BUN 41 and creatinine 0.96 and blood sugar 108 ammonia less than 9 liver enzymes not elevated albumin 4.0 Urinalysis is negative for infection. April 23, 2024: Underwent MRI. Negative. Some chronic changes. B12 deficiency. DC with the same. Patient may have had acute delirium probably from dehydration. Able to answer questions appropriately. Has mild cognitive impairment. Past Medical History Past Medical History: Asthma, COPD, CVA/TIA, Hypertension, Myocardial Infarction ([place]), Osteoarthritis (OA) Additional Past Medical History / Comment(s): History of mild stroke in 1987; hx of osteoporosis, back pain Last Myocardial Infarction Date:: 10-04-19 History of Any Multi-Drug Resistant Organisms: None Reported Past Surgical History: Appendectomy, Heart Catheterization With Stent, Joint Replacement, Orthopedic Surgery, Tubal Ligation Additional Past Surgical History / Comment(s): heart cath w/ stent 10-04-19, rt rotator cuff, [place] cataracts, rt knee replacement Past Anesthesia/Blood Transfusion Reactions: No Reported Reaction Date of Last Stent Placement:: 11/19/19 Smoking Status: Current every day smoker - Past Family History Sister(s) Family Medical History: Cancer Additional Family Medical History / Comment(s): ovarian Brother(s) Family Medical History: Deep Vein Thrombosis (DVT) On examination: VITAL SIGNS: [98.1, 72, 20, 109 x 70, 95% room air] GENERAL APPEARANCE: In bed, comfortable. HEENT: Normal external appearance of nose and ear. Oral cavity normal EYES: Pupils equal. Conjunctiva normal. NECK: JVD not raised. Mass not palpable. RESPIRATORY: Respiratory effort normal. Lungs clear to auscultation. CARDIOVASCULAR: First and second sounds normal. No edema. ABDOMEN: Soft. Liver and spleen not palpable. No tenderness. No mass palpable. PSYCHIATRY: Patient knows the year, the season, the hospital. Knows the president. INVESTIGATIONS, reviewed in the clinical context: EEG: Some evidence of encephalopathy. No epileptiform activity April 23, 2024: White count 8.6 hemoglobin 10.8 platelets 233 potassium 4.7 creatinine 0.8 BUN 28.6 MRI brain: Chronic changes Admission labs: BUN 41 UA: Negative Urine drug screen negative CT brain: Chronic changes Assessment and plan Altered mental status likely due to acute delirium-likely from dehydration Dehydration and volume depletion Hypertension Diabetes type 2 [id number] on metformin at home Coronary artery history of stent placement in 2019, history of CVA/TIA with no residual weakness Chronic back pain History of right total knee arthroplasty Currently everyday smoker Primary osteoarthritis Vitamin B12 deficiency Disposition: Home Patient Condition at Discharge: Good Plan - Discharge Summary New Discharge Prescriptions: New Baclofen 5 mg PO TID PRN #30 tablet PRN Reason: Spasms guaiFENesin [Mucinex] 600 mg PO TID #21 tab Cyanocobalamin [Vitamin B-12] 500 mcg PO DAILY #90 tab Continue Aspirin 81 mg PO DAILY #30 chew Iron 28mg 28 mg PO DAILY Aspirin/Acetaminophen/Caffeine [Excedrin Migraine Caplet] 1 - 2 tab PO DAILY PRN PRN Reason: Migraine Headache metFORMIN HCL ER [Glucophage XR] 500 mg PO W/SUPPER Metoprolol Succinate (ER) [Toprol XL] 25 mg PO BID Women Multivitamin Gummy 2 tab PO DAILY Budesonide [Pulmicort] 0.5 mg INHALATION RT-BID Fluticasone/Umeclidin/Vilanter [Trelegy Ellipta 200-62.5-25] 1 puff INHALATION RT-DAILY Hydrocortisone Cream [Hydrocortisone 2.5% Cream] 1 applic TOPICAL BID PRN PRN Reason: Rash Ibuprofen [Motrin] 800 mg PO Q8H PRN PRN Reason: Pain Triamcinolone 0.025% Cream [Kenalog 0.025% Cream] 1 applic TOPICAL BID PRN PRN Reason: Rash Vit C/E/Zn/Coppr/Lutein/Zeaxan [Preservision Areds 2 Softgel] 1 cap PO BID Discontinued lisinopriL [Zestril] 10 mg PO DAILY #30 tab Baclofen [Lioresal] 20 mg PO BID PRN PRN Reason: Muscle Spasm hydrOXYzine HCL [Atarax] 25 mg PO TID PRN PRN Reason: Anxiety Loratadine 10 mg PO DAILY Discharge Medication List Aspirin 81 mg PO DAILY #30 chew 10/07/19 [Rx] Aspirin/Acetaminophen/Caffeine [Excedrin Migraine Caplet] 1 - 2 tab PO DAILY PRN 04/22/24 [History] Budesonide [Pulmicort] 0.5 mg INHALATION RT-BID 04/22/24 [History] Fluticasone/Umeclidin/Vilanter [Trelegy Ellipta 200-62.5-25] 1 puff INHALATION RT-DAILY 04/22/24 [History] Hydrocortisone Cream [Hydrocortisone 2.5% Cream] 1 applic TOPICAL BID PRN 04/22/24 [History] Ibuprofen [Motrin] 800 mg PO Q8H PRN 04/22/24 [History] Iron 28mg 28 mg PO DAILY 04/22/24 [History] Metoprolol Succinate (ER) [Toprol XL] 25 mg PO BID 04/22/24 [History] Triamcinolone 0.025% Cream [Kenalog 0.025% Cream] 1 applic TOPICAL BID PRN 04/22/24 [History] Vit C/E/Zn/Coppr/Lutein/Zeaxan [Preservision Areds 2 Softgel] 1 cap PO BID 04/22/24 [History] Women Multivitamin Gummy 2 tab PO DAILY 04/22/24 [History] metFORMIN HCL ER [Glucophage XR] 500 mg PO W/SUPPER 04/22/24 [History] Baclofen 5 mg PO TID PRN #30 tablet 04/23/24 [Rx] Cyanocobalamin [Vitamin B-12] 500 mcg PO DAILY #90 tab 04/23/24 [Rx] guaiFENesin [Mucinex] 600 mg PO TID #21 tab 04/23/24 [Rx] Follow up Appointment(s)/Referral(s): Renzo Thayer MD [Primary Care Provider] - 1-2 days Patient Instructions/Handouts: Guaifenesin (By mouth), Baclofen (By mouth), Vitamin B-12 (By mouth), Vitamin B12 Deficiency (ED) Discharge Disposition: HOME SELF-CARE
[2024-04-24] MEDS ORDERED: CYANOCOBALAMIN 500 MCG TAB PO SCH (09:00)
== END 2024-04-23 18:17 | disposition home or self-care (01) ==
LOC: EC 10:31 → 4SSUR 13:33 → 5NMEDONC 15:55
PROVIDERS: ADMIT Hospitalist; ATTEND Hospitalist
DX: G93.41 Metabolic encephalopathy (principal); E53.8 Deficiency of other specified B group vitamins; E86.0 Dehydration; I25.10 Atherosclerotic heart disease of native coronary artery without angina pectoris; I10 Essential (primary) hypertension; J44.9 Chronic obstructive pulmonary disease, unspecified; I25.2 Old myocardial infarction; F17.200 Nicotine dependence, unspecified, uncomplicated; G89.29 Other chronic pain; M54.9 Dorsalgia, unspecified; M19.91 Primary osteoarthritis, unspecified site; Z96.651 Presence of right artificial knee joint; Z86.73 Personal history of transient ischemic attack (TIA), and cerebral infarction without residual deficits; Z95.5 Presence of coronary angioplasty implant and graft; Z79.899 Other long term (current) drug therapy; Z79.82 Long term (current) use of aspirin; Z79.02 Long term (current) use of antithrombotics/antiplatelets; Z79.52 Long term (current) use of systemic steroids; Z79.84 Long term (current) use of oral hypoglycemic drugs
CPT/HCPCS: 96372; 99285; 36415; 94640 ×2; 95816; 93005; 80053 ×2; 84443; 82607; 82140; 82746; 84484; 85025 ×2; 85610; 85730; 81003; 80306; 83036; 87636; 71046; 70450; 70553; G0378 ×3; J3420; J1644; A9585

== ENCOUNTER 2024-08-10 09:12 | Emergency (ER) | payer MEDICARE, OTHER ==
[2024-08-10] MEDS: CYCLOBENZAPRINE 5 MG TAB PO STA (09:35)
[2024-08-10] MEDS: LIDOCAINE 4% PATCH TOPICAL ONE (09:44)
[2024-08-10] MEDS: KETOROLAC 15 MG/ML 1 ML VIAL IVP STA ×2 (09:47→11:37)
[2024-08-10] MEDS: DEXAMETHASONE SOD PHOSPHATE 10 MG/ML 1 ML VIAL IVP STA (09:48)
--- NOTE | 2024-08-10 09:54 | ED ---
Back Pain [facility] - General Chief Complaint: Back Pain/Injury Stated Complaint: Back pain Time Seen by Provider: 08/10/24 09:18 Source: patient, EMS, RN notes reviewed Mode of arrival: EMS Limitations: no limitations - History of Present Illness Initial Comments: This is an 83-year-old female who presents to the emergency department for back pain. Patient reports left lower back pain starting 2 days ago. States that this wraps around the front of her left leg. Denies any injuries. Denies any history of similar problems in the past. Denies any loss of bowel/bladder control or saddle anesthesia. Taking ibuprofen which is somewhat helpful for her pain. MD Complaint: back pain - Related Data Home Medications Medication Instructions Recorded Confirmed Aspirin/Acetaminophen/Caffeine 1 - 2 tab PO DAILY PRN 04/22/24 04/22/24 [Excedrin Migraine Caplet] Budesonide [Pulmicort] 0.5 mg INHALATION RT-BID 04/22/24 04/22/24 Fluticasone/Umeclidin/Vilanter 1 puff INHALATION RT-DAILY 04/22/24 04/22/24 [Trelegy Ellipta 200-62.5-25] Hydrocortisone Cream 1 applic TOPICAL BID PRN 04/22/24 04/22/24 [Hydrocortisone 2.5% Cream] Ibuprofen [Motrin] 800 mg PO Q8H PRN 04/22/24 04/22/24 Iron 28mg 28 mg PO DAILY 04/22/24 04/22/24 Metoprolol Succinate (ER) [Toprol 25 mg PO BID 04/22/24 04/22/24 XL] Triamcinolone 0.025% Cream 1 applic TOPICAL BID PRN 04/22/24 04/22/24 [Kenalog 0.025% Cream] Vit C/E/Zn/Coppr/Lutein/Zeaxan 1 cap PO BID 04/22/24 04/22/24 [Preservision Areds 2 Softgel] Women Multivitamin Gummy 2 tab PO DAILY 04/22/24 04/22/24 metFORMIN HCL ER [Glucophage XR] 500 mg PO W/SUPPER 04/22/24 04/22/24 Previous Rx's Medication Instructions Recorded Aspirin 81 mg PO DAILY #30 chew 10/07/19 Baclofen 5 mg PO TID PRN #30 tablet 04/23/24 Cyanocobalamin [Vitamin B-12] 500 mcg PO DAILY #90 tab 04/23/24 guaiFENesin [Mucinex] 600 mg PO TID #21 tab 04/23/24 Baclofen 5 mg PO TID PRN #30 tablet 08/10/24 Lidocaine 5% Patch [Lidoderm 5% 1 patch TOPICAL DAILY PRN #30 patch 08/10/24 Patch] Meloxicam [Mobic] 15 mg PO DAILY PRN #30 tab 08/10/24 Allergies Allergy/AdvReac Type Severity Reaction Status Date / Time No Known Allergies Allergy Verified 08/10/24 09:16 Review of Systems ROS Statement: Those systems with pertinent positive or pertinent negative responses have been documented in the HPI. ROS Other: All systems not noted in ROS Statement are negative. Past Medical History Past Medical History: Asthma, COPD, CVA/TIA, Hypertension, Myocardial Infarction ([place]), Osteoarthritis ([place]) Additional Past Medical History / Comment(s): History of mild stroke in 1987; hx of osteoporosis, back pain Last Myocardial Infarction Date:: 10-04-19 History of Any Multi-Drug Resistant Organisms: None Reported Past Surgical History: Appendectomy, Heart Catheterization With Stent, Joint Replacement, Orthopedic Surgery, Tubal Ligation Additional Past Surgical History / Comment(s): heart cath w/ stent 10-04-19, rt rotator cuff, [place] cataracts, rt knee replacement Past Anesthesia/Blood Transfusion Reactions: No Reported Reaction Date of Last Stent Placement:: 11/19/19 Past Psychological History: No Psychological Hx Reported Smoking Status: Current every day smoker Past Alcohol Use History: None Reported Past Drug Use History: None Reported - Past Family History Sister(s) Family Medical History: Cancer Additional Family Medical History / Comment(s): ovarian Brother(s) Family Medical History: Deep Vein Thrombosis (DVT) General Exam Limitations: no limitations General appearance: alert, in no apparent distress Head exam: Present: atraumatic, normocephalic, normal inspection Respiratory exam: Present: normal lung sounds bilaterally. Absent: respiratory distress, wheezes, rales, rhonchi, stridor Cardiovascular Exam: Present: regular rate, normal rhythm, normal heart sounds. Absent: systolic murmur, diastolic murmur, rubs, gallop, clicks Back exam: Present: other (Tenderness to palpation over the left lower back and left buttocks) Neurological exam: Present: alert, oriented X3, CN II-XII intact Psychiatric exam: Present: normal affect, normal mood Skin exam: Present: warm, dry, intact, normal color. Absent: rash Course Vital Signs 08/10/24 08/10/24 09:13 12:08 Temperature 97.6 F 98.1 F Pulse Rate 86 67 Respiratory 22 18 Rate Blood Pressure 147/76 147/82 O2 Sat by Pulse 94 L 97 Oximetry Medical Decision Making - Medical Decision Making This is an 83 year old female who presents to the emergency department for back pain. Was pt. sent in by a medical professional or institution? @ -No Did you speak to anyone other than the patient for history? @ -No Did you review nursing and triage notes? @ -Yes, and I agree, it is accurate with regards to the patient's symptoms. Were old charts reviewed? @ -No Differential Diagnosis? @ -Differential Back Pain: Strain, zoster, cauda equina syndrome, epidural abscess, vertebral osteomyelitis, discitis, fracture, subluxation, disc herniation, DJD, spinal stenosis, dissection, AAA, pancreatitis, peptic ulcer disease, pyelonephritis, kidney stone, this is not meant to be an all-inclusive list. EKG interpreted by me (3pts min.)? @ -Not obtained X-rays interpreted by me (1pt min.)? @ -X-ray of the lumbar spine obtained. My interpretation identifies no acute fractures. CT interpreted by me (1pt min.)? @ -Not obtained U/S interpreted by me (1pt. min.)? @ -Not obtained What testing was considered but not performed? (CT, X-rays, U/S, labs)? Why? @ -None What meds were considered but not given? Why? @ -None Did you discuss the management of the patient with other professionals? @ -No Did you reconcile home meds? @ -No Was smoking cessation discussed for >3mins.? @ -No Was critical care preformed (if so, how long)? @ -No Were there social determinants of health that impacted care today? How? (Homelessness, low income, unemployed, alcoholism, drug addiction, transportation, low edu. Level, literacy, decrease access to med. care, skilled nursing, rehab)? @ -No Was there de-escalation of care discussed even if they declined? (Discuss DNR or withdrawal of care, Hospice)? @ -No What co-morbidities impacted this encounter? (DM, HTN, Smoking, COPD, CAD, Cancer, CVA, Hep., AIDS, mental health diagnosis, sleep apnea, morbid obesity)? @ -Osteoarthritis Was patient admitted / discharged? @ -Discharged. X-ray of the lumbar spine obtained revealing degenerative changes without any acute fractures. Symptoms well-controlled in the emergency department. Advised that the distribution of this beginning the left lower back/buttocks and wrapping around the front of the left thigh is suggestive of sciatica/lumbar radiculopathy. Prescription for Mobic, baclofen, and lidocaine patches provided. Advised follow-up with her PCP. Patient discharged home in stable condition. Case discussed with ED attending Dr. Chaidez. Return precautions reviewed in depth, the patient is instructed to return to the emergency department with any new, worsening, or concerning symptoms. Patient verbalized understanding. Undiagnosed new problem with uncertain prognosis? @ -None Drug Therapy requiring intensive monitoring for toxicity (Heparin, Nitro, Insulin, Cardizem)? @ -None Were any procedures done? @ -None Diagnosis/symptom? @ -Sciatica, left lumbar radiculopathy Acute, or Chronic, or Acute on Chronic? @ -Acute Uncomplicated (without systemic symptoms) or Complicated (systemic symptoms)? @ -Uncomplicated Side effects of treatment? @ -None Exacerbation, Progression, or Severe Exacerbation] @ -Not applicable Poses a threat to life or bodily function? @ -No - Radiology Data Radiology results: report reviewed, image reviewed Disposition Clinical Impression: Left lumbar radiculopathy Disposition: HOME SELF-CARE Instructions (If sedation given, give patient instructions): Sciatica (ED), Lumbar Radiculopathy (ED) Additional Instructions: Return to the emergency department with any new, worsening, or concerning symptoms. Take the Mobic once daily as needed for pain relief. If you choose to take this, do not take any other anti-inflammatories such as ibuprofen, take 1 or the other. You may take this with Tylenol. Take the baclofen up to 3 times daily. You can also apply the lidocaine patches daily. Follow up with your primary care provider in 1-2 days. Prescriptions: Baclofen 5 mg PO TID PRN #30 tablet PRN Reason: Pain Lidocaine 5% Patch [Lidoderm 5% Patch] 1 patch TOPICAL DAILY PRN #30 patch PRN Reason: Pain Meloxicam [Mobic] 15 mg PO DAILY PRN #30 tab PRN Reason: Pain Is patient prescribed a controlled substance at d/c from ED?: No Referrals: Renzo Thayer MD [Primary Care Provider] - 1-2 days Time of Disposition: 11:34
--- NOTE | 2024-08-10 10:24 | XR ---
EXAMINATION TYPE: XR lumbar spine 2 or 3V DATE OF EXAM: 08/10/2024 10:19 AM CLINICAL INDICATION: Female, 83 years old with history of Pain; [facility] COMPARISON: None TECHNIQUE: XR lumbar spine 2 or 3V - Frontal, lateral and coned in L5-S1 lateral views of the spine. FINDINGS: No evidence of any acute osseous pathology. No evidence of loss of vertebral body height i s seen. There is normal alignment of the lumbar vertebral bodies. Scattered disc space narrowing. Mul tilevel marginal osteophyte formation throughout the visualized spine. There is facet joint arthropat hy throughout the spine. Scattered at least mild neural foraminal stenosis. Atherosclerosis of the ar terial vasculature. IMPRESSION: 1. No acute fracture. 2. Moderate multilevel disc degeneration.
[2024-08-10] MEDS: MORPHINE SULFATE 2 MG/ML SYRINGE IVP STA (11:37)
[2024-08-10] MEDS: traMADol 50 MG STARTER PACK 3 TAB BTL PO STA (11:37)
[2024-08-10 12:12] VITALS: BP 147/82; PULSE 67; RESP 18; TEMP 98.1
== END 2024-08-10 12:32 | disposition home or self-care (01) ==
LOC: EC 09:12
DX: M54.50 Low back pain, unspecified
CPT/HCPCS: 72100; 96361; 96374; 96375; 99283

== ENCOUNTER 2024-08-13 01:07 | Emergency (ER) ==
[2024-08-13 01:14] VITALS: TEMP 97.7
[2024-08-13] MEDS: HYDROcodone/APAP 5-325MG 1 EACH TAB PO STA (01:44)
[2024-08-13] MEDS: LIDOCAINE 4% PATCH TOPICAL ONE (01:44)
[2024-08-13] MEDS: DEXAMETHASONE SOD PHOSPHATE 10 MG/ML 1 ML VIAL IM STA (01:44)
--- NOTE | 2024-08-13 03:10 | ED ---
Back Pain HPI - General Chief Complaint: Back Pain/Injury Stated Complaint: Back Pain/Sciatica Time Seen by Provider: 08/13/24 01:18 Source: patient Limitations: no limitations - History of Present Illness Initial Comments: 83-year-old female presenting with chief complaint of lower back pain. Patient is having left-sided lower back pain with radiation down the left leg. No loss of bowel or bladder control or saddle paresthesia. She was here on 08/10 for similar pain, negative x-rays were obtained and she was sent home on Mobic and baclofen. She states that the pain never completely went away. She denies any new injury or trauma. No numbness tingling or weakness. - Related Data Allergies Allergy/AdvReac Type Severity Reaction Status Date / Time No Known Allergies Allergy Verified 08/13/24 01:10 Review of Systems ROS Statement: Those systems with pertinent positive or pertinent negative responses have been documented in the HPI. ROS Other: All systems not noted in ROS Statement are negative. Past Medical History Past Medical History: Hypertension, Myocardial Infarction ([place]) History of Any Multi-Drug Resistant Organisms: None Reported Past Surgical History: Heart Catheterization With Stent, Orthopedic Surgery, Tubal Ligation Additional Past Surgical History / Comment(s): right rotator cuff, tubal ligation Past Psychological History: No Psychological Hx Reported Smoking Status: Current every day smoker Past Alcohol Use History: None Reported Past Drug Use History: None Reported General Exam Limitations: no limitations General appearance: alert, in no apparent distress Head exam: Present: atraumatic, normocephalic Eye exam: Present: normal appearance, EOMI Neck exam: Present: normal inspection. Absent: meningismus Respiratory exam: Absent: respiratory distress Cardiovascular Exam: Present: regular rate Back exam: Present: normal inspection, paraspinal tenderness. Absent: vertebral tenderness Neurological exam: Present: alert, oriented X3 Psychiatric exam: Present: normal affect, normal mood Skin exam: Present: warm, dry Course Vital Signs 08/13/24 08/13/24 01:10 06:00 Temperature 97.7 F Pulse Rate 77 80 Respiratory 20 18 Rate Blood Pressure 154/88 132/78 O2 Sat by Pulse 95 96 Oximetry Medical Decision Making - Medical Decision Making Was pt. sent in by a medical professional or institution (, PA, OPERATIONS SUPERINTENDENT, urgent care, hospital, or detention...) When possible be specific @ -No Did you speak to anyone other than the patient for history (EMS, parent, family, police, friend...)? What history was obtained from this source @ -No Did you review nursing and triage notes (agree or disagree)? Why? @ -I reviewed and agree with nursing and triage notes Were old charts reviewed (outside hosp., previous admission, EMS record, old EKG, old radiological studies, urgent care reports/EKG's, detention records)? Report findings @ -No old charts were reviewed Differential Diagnosis (chest pain, altered mental status, abdominal pain women, abdominal pain men, vaginal bleeding, weakness, fever, dyspnea, syncope, headache, dizziness, GI bleed, back pain, seizure, CVA, palpatations, mental health, musculoskeletal)? @ - MDM Differential Back Pain: Strain, zoster, cauda equina syndrome, epidural abscess, vertebral osteomyelitis, discitis, fracture, subluxation, disc herniation, DJD, spinal stenosis, dissection, AAA, pancreatitis, peptic ulcer disease, pyelonephritis, kidney stone this is not meant to be an all-inclusive list. EKG interpreted by me (3pts min.). @ -As above X-rays interpreted by me (1pt min.). @ -None done CT interpreted by me (1pt min.). @ -None done U/S interpreted by me (1pt. min.). @ -None done What testing was considered but not performed or refused? (CT, X-rays, U/S, labs)? Why? @ -None What meds were considered but not given or refused? Why? @ -None Did you discuss the management of the patient with other professionals (professionals i.e. , PA, OPERATIONS SUPERINTENDENT, lab, RT, psych nurse, psychosocial rehabilitation counselor, telephone quotation clerk, teacher, parking enforcement officer, catalytic case operator)? Give summary @ -No Was smoking cessation discussed for >3mins.? @ -No Was critical care preformed (if so, how long)? @ -No Were there social determinants of health that impacted care today? How? (Homelessness, low income, unemployed, alcoholism, drug addiction, transportation, low edu. Level, literacy, decrease access to med. care, [facility], rehab)? @ -No Was there de-escalation of care discussed even if they declined (Discuss DNR or withdrawal of care, Hospice)? DNR status @ -No What co-morbidities impacted this encounter? (DM, HTN, Smoking, COPD, CAD, Cancer, CVA, ARF, Chemo, Hep., AIDS, mental health diagnosis, sleep apnea, morbid obesity)? @ -None Was patient admitted / discharged? Hospital course, mention meds given and route, prescriptions, significant lab abnormalities, going to OR and other pertinent info. @ -83-year-old female presenting with chief complaint of left-sided back pain with radiation down the leg. No red flag symptoms. She was here a few days ago with the same complaint. Negative x-rays. No new injuries. Patient is given pain medication and on reassessment reports improvement in her symptoms. Discharged home. Follow-up with PCP. Report back to ER with any new or worsening symptoms. Discussed return parameters and answered all questions. Patient conveyed verbal understanding and agreed to the plan. I discussed this case in detail with my attending Dr. Caraballo Undiagnosed new problem with uncertain prognosis? @ -No Drug Therapy requiring intensive monitoring for toxicity (Heparin, Nitro, Insulin, Cardizem)? @ -No Were any procedures done? @ -No Diagnosis/symptom? @ -Sciatica Acute, or Chronic, or Acute on Chronic? @ -Acute Uncomplicated (without systemic symptoms) or Complicated (systemic symptoms)? @ -uncomplicated Side effects of treatment? @ -No Exacerbation, Progression, or Severe Exacerbation? @ -No Poses a threat to life or bodily function? How? (Chest pain, [place], [place], pneumonia, PE, COPD, DKA, ARF, appy, cholecystitis, CVA, Diverticulitis, Homicidal, Suicidal, threat to staff... and all critical care pts) @ -Unlikely Disposition Clinical Impression: Sciatica Disposition: HOME SELF-CARE Condition: Good Instructions (If sedation given, give patient instructions): Sciatica (ED), Acute Low Back Pain (ED) Additional Instructions: Follow-up with your PCP. Report back to ER with any new or worsening symptoms. Is patient prescribed a controlled substance at d/c from ED?: No Referrals: Renzo Thayer MD [Primary Care Provider] - 1-2 days Time of Disposition: 03:30
[2024-08-13] MEDS: HYDROmorphone 0.5 MG/0.5 ML SYRINGE IVP STA (03:16)
[2024-08-13] MEDS: HYDROmorphone 0.5 MG/0.5 ML SYRINGE IM STA (03:16)
[2024-08-13 06:12] VITALS: BP 132/78; PULSE 80; RESP 18
== END 2024-08-13 06:12 | disposition home or self-care (01) ==
LOC: MERGE 01:07 → EC 01:07
CPT/HCPCS: 96372; 96374; 99283

== ENCOUNTER 2024-08-15 00:46 | Emergency (ER) | payer MEDICARE, OTHER ==
[2024-08-15 01:16] VITALS: RESP 18; TEMP 97.4
[2024-08-15] MEDS: LIDOCAINE 4% PATCH TOPICAL ONE (02:51)
[2024-08-15] MEDS: HYDROcodone/APAP 7.5-325MG 1 EACH TAB PO ONE (02:51)
--- NOTE | 2024-08-15 03:09 | ED ---
Back Pain HPI - General Chief Complaint: Back Pain/Injury Stated Complaint: back pain Time Seen by Provider: 08/15/24 01:23 Source: patient, EMS Limitations: no limitations - History of Present Illness Initial Comments: 83-year-old female presenting with chief complaint of back pain. Patient has history of sciatica, she is having left lower back pain with radiation down the left leg. No loss of bowel or bladder control or saddle paresthesia. She went to her PCP today and got "a couple shots" of medication, unsure what kind. She did take gabapentin 300 mg which did not provide relief. She was given Toradol by EMS. No dysuria, hematuria, fever, chills, nausea, vomiting, abdominal pain, injury, trauma. - Related Data Home Medications Medication Instructions Recorded Confirmed Aspirin/Acetaminophen/Caffeine 1 - 2 tab PO DAILY PRN 04/22/24 04/22/24 [Excedrin Migraine Caplet] Budesonide [Pulmicort] 0.5 mg INHALATION RT-BID 04/22/24 04/22/24 Fluticasone/Umeclidin/Vilanter 1 puff INHALATION RT-DAILY 04/22/24 04/22/24 [Trelegy Ellipta 200-62.5-25] Hydrocortisone Cream 1 applic TOPICAL BID PRN 04/22/24 04/22/24 [Hydrocortisone 2.5% Cream] Ibuprofen [Motrin] 800 mg PO Q8H PRN 04/22/24 04/22/24 Iron 28mg 28 mg PO DAILY 04/22/24 04/22/24 Metoprolol Succinate (ER) [Toprol 25 mg PO BID 04/22/24 04/22/24 XL] Triamcinolone 0.025% Cream 1 applic TOPICAL BID PRN 04/22/24 04/22/24 [Kenalog 0.025% Cream] Vit C/E/Zn/Coppr/Lutein/Zeaxan 1 cap PO BID 04/22/24 04/22/24 [Preservision Areds 2 Softgel] Women Multivitamin Gummy 2 tab PO DAILY 04/22/24 04/22/24 metFORMIN HCL ER [Glucophage XR] 500 mg PO W/SUPPER 04/22/24 04/22/24 Previous Rx's Medication Instructions Recorded Aspirin 81 mg PO DAILY #30 chew 10/07/19 Baclofen 5 mg PO TID PRN #30 tablet 04/23/24 Cyanocobalamin [Vitamin B-12] 500 mcg PO DAILY #90 tab 04/23/24 guaiFENesin [Mucinex] 600 mg PO TID #21 tab 04/23/24 Baclofen 5 mg PO TID PRN #30 tablet 08/10/24 Lidocaine 5% Patch [Lidoderm 5% 1 patch TOPICAL DAILY PRN #30 patch 08/10/24 Patch] Meloxicam [Mobic] 15 mg PO DAILY PRN #30 tab 08/10/24 Allergies Allergy/AdvReac Type Severity Reaction Status Date / Time No Known Allergies Allergy Verified 08/10/24 09:16 Review of Systems ROS Statement: Those systems with pertinent positive or pertinent negative responses have been documented in the HPI. ROS Other: All systems not noted in ROS Statement are negative. Past Medical History Past Medical History: Asthma, COPD, CVA/TIA, Hypertension, Myocardial Infarction ([place]), Osteoarthritis ([place]) Additional Past Medical History / Comment(s): History of mild stroke in 1987; hx of osteoporosis, back pain Last Myocardial Infarction Date:: 10-04-19 History of Any Multi-Drug Resistant Organisms: None Reported Past Surgical History: Appendectomy, Heart Catheterization With Stent, Joint Replacement, Orthopedic Surgery, Tubal Ligation Additional Past Surgical History / Comment(s): heart cath w/ stent 10-04-19, rt rotator cuff, [place] cataracts, rt knee replacement Past Anesthesia/Blood Transfusion Reactions: No Reported Reaction Date of Last Stent Placement:: 11/19/19 Past Psychological History: No Psychological Hx Reported Smoking Status: Current every day smoker Past Alcohol Use History: None Reported Past Drug Use History: None Reported - Past Family History Sister(s) Family Medical History: Cancer Additional Family Medical History / Comment(s): ovarian Brother(s) Family Medical History: Deep Vein Thrombosis (DVT) General Exam Limitations: no limitations General appearance: alert, in no apparent distress Head exam: Present: atraumatic, normocephalic Eye exam: Present: normal appearance, EOMI Neck exam: Present: normal inspection. Absent: meningismus Respiratory exam: Absent: respiratory distress Cardiovascular Exam: Present: regular rate Back exam: Present: normal inspection, paraspinal tenderness Neurological exam: Present: alert, oriented X3 Psychiatric exam: Present: normal affect, normal mood Skin exam: Present: warm, dry Course Vital Signs 08/15/24 08/15/24 00:53 03:24 Temperature 97.4 F L Pulse Rate 74 79 Respiratory 18 18 Rate Blood Pressure 133/70 135/70 O2 Sat by Pulse 94 L 94 L Oximetry Medical Decision Making - Medical Decision Making Was pt. sent in by a medical professional or institution (, PA, PRESCHOOL AIDE, urgent care, hospital, or jail...) When possible be specific @ -No Did you speak to anyone other than the patient for history (EMS, parent, family, police, friend...)? What history was obtained from this source @ -No Did you review nursing and triage notes (agree or disagree)? Why? @ -I reviewed and agree with nursing and triage notes Were old charts reviewed (outside hosp., previous admission, EMS record, old EKG , old radiological studies, urgent care reports/EKG's, jail records)? Report findings @ -Previous visits reviewed Differential Diagnosis (chest pain, altered mental status, abdominal pain women, abdominal pain men, vaginal bleeding, weakness, fever, dyspnea, syncope, headache, dizziness, GI bleed, back pain, seizure, CVA, palpatations, mental health, musculoskeletal)? @ - MDM Differential Back Pain: Strain, zoster, cauda equina syndrome, epidural abscess, vertebral osteomyelitis, discitis, fracture, subluxation, disc herniation, DJD, spinal stenosis, dissection, AAA, pancreatitis, peptic ulcer disease, pyelonephritis, kidney stone this is not meant to be an all-inclusive list. EKG interpreted by me (3pts min.). @ -As above X-rays interpreted by me (1pt min.). @ -None done CT interpreted by me (1pt min.). @ -None done U/S interpreted by me (1pt. min.). @ -None done What testing was considered but not performed or refused? (CT, X-rays, U/S, labs)? Why? @ -None What meds were considered but not given or refused? Why? @ -None Did you discuss the management of the patient with other professionals (professionals i.e. , ANDREY, PRESCHOOL AIDE, lab, RT, psych nurse, certified social workers in health care, automated manufacturing instructor, teacher, business banking officer, mattress spring encaser)? Give summary @ -No Was smoking cessation discussed for >3mins.? @ -No Was critical care preformed (if so, how long)? @ -No Were there social determinants of health that impacted care today? How? (Homelessness, low income, unemployed, alcoholism, drug addiction, transportation, low edu. Level, literacy, decrease access to med. care, residential, rehab)? @ -No Was there de-escalation of care discussed even if they declined (Discuss DNR or withdrawal of care, Hospice)? DNR status @ -No What co-morbidities impacted this encounter? (DM, HTN, Smoking, COPD, CAD, Cancer, CVA, ARF, Chemo, Hep., AIDS, mental health diagnosis, sleep apnea, morbid obesity)? @ -None Was patient admitted / discharged? Hospital course, mention meds given and route, prescriptions, significant lab abnormalities, going to OR and other pertinent info. @ -83-year-old female presenting with chief complaint of left lower back pain with radiation down the left leg. History of sciatica. No red flag symptoms. Patient was treated with pain medication and reports improvement afterwards. Resting comfortably in the bed. Discharged. Follow-up with PCP. Report back to ER with any new or worsening symptoms. Discussed return parameters and answered all questions. Patient conveyed verbal understanding and agreed to the plan. I discussed this case in detail with my attending Dr. hua Undiagnosed new problem with uncertain prognosis? @ -No Drug Therapy requiring intensive monitoring for toxicity (Heparin, Nitro, Insulin, Cardizem)? @ -No Were any procedures done? @ -No Diagnosis/symptom? @ -Sciatica Acute, or Chronic, or Acute on Chronic? @ -Acute Uncomplicated (without systemic symptoms) or Complicated (systemic symptoms)? @ -Uncomplicated Side effects of treatment? @ -No Exacerbation, Progression, or Severe Exacerbation? @ -No Poses a threat to life or bodily function? How? (Chest pain, [place], [place], pneumonia, PE, COPD, DKA, ARF, appy, cholecystitis, CVA, Diverticulitis, Homicidal, Suicidal, threat to staff... and all critical care pts) @ -Unlikely Disposition Clinical Impression: Left lumbar radiculopathy Disposition: HOME SELF-CARE Condition: Good Instructions (If sedation given, give patient instructions): Sciatica (ED) Additional Instructions: Follow-up with PCP. Report back to ER with any new or worsening symptoms. Is patient prescribed a controlled substance at d/c from ED?: No Referrals: Renzo Thayer MD [Primary Care Provider] - 1-2 days Time of Disposition: 03:08
[2024-08-15 03:25] VITALS: BP 135/70; PULSE 79
== END 2024-08-15 03:25 | disposition home or self-care (01) ==
LOC: EC 00:46
DX: M54.16 Radiculopathy, lumbar region (principal)

== ENCOUNTER 2024-08-15 21:45 | Inpatient (IN) | payer MEDICARE, OTHER ==
[2024-08-15] MEDS: HYDROcodone/APAP 7.5-325MG 1 EACH TAB PO ONE (22:40)
[2024-08-15] MEDS: IPRATROPIUM-ALBUTEROL 3 ML NEB INHALATION STA (22:43)
[2024-08-16] MEDS: HYDROmorphone 0.5 MG/0.5 ML SYRINGE IVP STA (02:12)
--- NOTE | 2024-08-16 02:12 | XR ---
EXAM: XR Left Hip With Pelvis When Performed, 2 or 3 Views CLINICAL HISTORY: ITS.REASON XR Reason: pain TECHNIQUE: Two or three views of the left hip with pelvis when performed. COMPARISON: No previous studies. FINDINGS: Bones/joints: Mild osteoarthritic changes about the hip joints. The bony pelvis is unremarkable. Mild to moderate osteoarthritic changes about the sacral iliac joints. No acute fracture. No dislocation. Soft tissues: Unremarkable. Vasculature: Atherosclerotic disease. IMPRESSION: 1. Mild osteoarthritic changes about the hip joints. 2. Atherosclerotic disease
[2024-08-16] MEDS: methylPREDNISolone SOD SUCCI 125 MG/2 ML VIAL IVP ONE (02:13)
--- NOTE | 2024-08-16 02:48 | XR ---
EXAM: XR Chest, 2 Views CLINICAL HISTORY: ITS.REASON XR Reason: difficulty breathing TECHNIQUE: Frontal and lateral views of the chest. COMPARISON: No previous studies. FINDINGS: Lungs: Mild prominence of central pulmonary vasculature. Presumed subsegmental atelectasis at the left lung base. Pleural space: Unremarkable. No pneumothorax. Heart: There is cardiomegaly. Mediastinum: Unremarkable. Normal mediastinal contour. Bones/joints: Osseous structures and soft tissues are unremarkable. No acute fracture. Other findings: The patient is rotated right of midline. IMPRESSION: 1. Cardiomegaly. 2. Consider incipient congestive heart failure. 3. Presumed subsegmental atelectasis at the left lung base.
[2024-08-16 02:50] LABS: Basophils % (A) 0 %; Eosinophils # (A) 0.1 k/uL (0-0.7); Eosinophils % (A) 1 %; HCT 33.5 % (34.0-46.0); HGB 10.8 gm/dL (11.4-16.0); Lymphocytes # (A) 0.4 k/uL (1.0-4.8); Lymphocytes % (A) 7 %; MCH 28.7 pg (25.0-35.0); MCHC 32.4 g/dL (31.0-37.0); MCV 88.8 fL (80.0-100.0); Mean Platelet Volume 7.4; Monocytes # (A) 0.1 k/uL (0-1.0); Monocytes % (A) 1 %; Neutrophils # (A) 5.9 k/uL (1.3-7.7); Neutrophils % (A) 91 %; Platelet Count 262 k/uL (150-450); RBC 3.77 m/uL (3.80-5.40); RDW 14.9 % (11.5-15.5); WBC 6.5 k/uL (3.8-10.6)
[2024-08-16 03:11] LABS: ALT 17 U/L (4-34); AST 24 U/L (14-36); African American GFR (CKD) >90 (>60 ml/min/1.73 sqM); Albumin 3.6 g/dL (3.5-5.0); Alkaline Phosphatase 43 U/L (38-126); Anion Gap 5 mmol/L; Blood Urea Nitrogen 22 mg/dL (7-17); Calcium 9.4 mg/dL (8.4-10.2); Carbon Dioxide 26 mmol/L (22-30); Chloride 108 mmol/L (98-107); Glucose 176 mg/dL (74-99); Non-African American GFR(CKD) 82 (>60 ml/min/1.73 sqM); Sodium 139 mmol/L (137-145); Total Bilirubin 0.4 mg/dL (0.2-1.3); Total Protein 5.8 g/dL (6.3-8.2)
[2024-08-16 03:19] LABS: NT-Pro-B-Type Natriuretic Pept 3730 pg/mL
[2024-08-16] MEDS: FUROSEMIDE 10 MG/ML 4 ML VIAL IV STA (03:56)
[2024-08-16] MEDS ORDERED: HYDROcodone/APAP 5-325MG 1 EACH TAB PO PRN (03:59)
[2024-08-16] MEDS ORDERED: ACETAMINOPHEN TAB 325 MG TAB PO PRN (03:59)
[2024-08-16] MEDS ORDERED: NALOXONE 0.4 MG/ML 1 ML VIAL IV PRN (03:59)
[2024-08-16] MEDS ORDERED: MORPHINE SULFATE 4 MG/ML SYRINGE IV PRN (03:59)
--- NOTE | 2024-08-16 05:16 | ED ---
General Adult HPI - General Chief complaint: Extremity Problem,Nontraumatic Stated complaint: back pain Time Seen by Provider: 08/15/24 22:17 Source: patient, EMS Limitations: no limitations - History of Present Illness Initial comments: 83-year-old female present with chief complaint of lower back pain. This located on the left side and radiates down the left leg. She has no new injury or trauma. She does have history of sciatica. She has been here several times the past few days for the same complaint. While obtaining the history it is noted that the patient is short of breath and her breathing does sound congested. Patient has history of COPD and has not been taking any of her home medications. States that she recently moved and her son placed her things in her home haphazardly and she is unable to find her medications to take. She denies any chest pain. No loss of bowel or bladder control or saddle paresthesia. - Related Data Home Medications Medication Instructions Recorded Confirmed Aspirin/Acetaminophen/Caffeine 1 - 2 tab PO DAILY PRN 04/22/24 04/22/24 [Excedrin Migraine Caplet] Budesonide [Pulmicort] 0.5 mg INHALATION RT-BID 04/22/24 04/22/24 Fluticasone/Umeclidin/Vilanter 1 puff INHALATION RT-DAILY 04/22/24 04/22/24 [Trelegy Ellipta 200-62.5-25] Hydrocortisone Cream 1 applic TOPICAL BID PRN 04/22/24 04/22/24 [Hydrocortisone 2.5% Cream] Ibuprofen [Motrin] 800 mg PO Q8H PRN 04/22/24 04/22/24 Iron 28mg 28 mg PO DAILY 04/22/24 04/22/24 Metoprolol Succinate (ER) [Toprol 25 mg PO BID 04/22/24 04/22/24 XL] Triamcinolone 0.025% Cream 1 applic TOPICAL BID PRN 04/22/24 04/22/24 [Kenalog 0.025% Cream] Vit C/E/Zn/Coppr/Lutein/Zeaxan 1 cap PO BID 04/22/24 04/22/24 [Preservision Areds 2 Softgel] Women Multivitamin Gummy 2 tab PO DAILY 04/22/24 04/22/24 metFORMIN HCL ER [Glucophage XR] 500 mg PO W/SUPPER 04/22/24 04/22/24 Previous Rx's Medication Instructions Recorded Aspirin 81 mg PO DAILY #30 chew 10/07/19 Baclofen 5 mg PO TID PRN #30 tablet 04/23/24 Cyanocobalamin [Vitamin B-12] 500 mcg PO DAILY #90 tab 04/23/24 guaiFENesin [Mucinex] 600 mg PO TID #21 tab 04/23/24 Baclofen 5 mg PO TID PRN #30 tablet 08/10/24 Lidocaine 5% Patch [Lidoderm 5% 1 patch TOPICAL DAILY PRN #30 patch 08/10/24 Patch] Meloxicam [Mobic] 15 mg PO DAILY PRN #30 tab 08/10/24 Allergies Allergy/AdvReac Type Severity Reaction Status Date / Time No Known Allergies Allergy Verified 08/15/24 22:07 Review of Systems ROS Statement: Those systems with pertinent positive or pertinent negative responses have been documented in the HPI. ROS Other: All systems not noted in ROS Statement are negative. Past Medical History Past Medical History: Asthma, COPD, CVA/TIA, Hypertension, Myocardial Infarction ([place]), Osteoarthritis ([place]) Additional Past Medical History / Comment(s): History of mild stroke in 1987; hx of osteoporosis, back pain Last Myocardial Infarction Date:: 10-04-19 History of Any Multi-Drug Resistant Organisms: None Reported Past Surgical History: Appendectomy, Heart Catheterization With Stent, Joint Replacement, Orthopedic Surgery, Tubal Ligation Additional Past Surgical History / Comment(s): heart cath w/ stent 10-04-19, rt rotator cuff, [place] cataracts, rt knee replacement Past Anesthesia/Blood Transfusion Reactions: No Reported Reaction Date of Last Stent Placement:: 11/19/19 Past Psychological History: No Psychological Hx Reported Smoking Status: Current every day smoker Past Alcohol Use History: None Reported Past Drug Use History: None Reported - Past Family History Sister(s) Family Medical History: Cancer Additional Family Medical History / Comment(s): ovarian Brother(s) Family Medical History: Deep Vein Thrombosis (DVT) General Exam Limitations: no limitations General appearance: alert, in no apparent distress Head exam: Present: atraumatic, normocephalic Eye exam: Present: normal appearance, EOMI Neck exam: Present: normal inspection. Absent: meningismus Respiratory exam: Present: wheezes, rhonchi. Absent: respiratory distress, rales, stridor Cardiovascular Exam: Present: regular rate, normal rhythm, normal heart sounds. Absent: systolic murmur, diastolic murmur, rubs, gallop, clicks Extremities exam: Present: pedal edema Back exam: Present: normal inspection, paraspinal tenderness Neurological exam: Present: alert, oriented X3 Psychiatric exam: Present: normal affect, normal mood Skin exam: Present: warm, dry Course Vital Signs 08/15/24 08/15/24 08/15/24 21:59 22:43 22:53 Temperature 98.7 F Pulse Rate 80 88 89 Respiratory 18 Rate Blood Pressure 149/71 O2 Sat by Pulse 92 L Oximetry 08/16/24 08/16/24 08/16/24 00:38 02:00 02:48 Temperature Pulse Rate 64 64 Respiratory 16 18 16 Rate Blood Pressure 149/71 153/78 138/52 O2 Sat by Pulse 88 L 92 L 96 Oximetry 08/16/24 08/16/24 02:53 04:00 Temperature Pulse Rate Respiratory 18 16 Rate Blood Pressure 132/54 O2 Sat by Pulse 97 Oximetry Medical Decision Making - Medical Decision Making Was pt. sent in by a medical professional or institution (, PA, DISCIPLINARY HEARING OFFICER, urgent care, hospital, or senior living...) When possible be specific @ -No Did you speak to anyone other than the patient for history (EMS, parent, family, police, friend...)? What history was obtained from this source @ -No Did you review nursing and triage notes (agree or disagree)? Why? @ -I reviewed and agree with nursing and triage notes Were old charts reviewed (outside hosp., previous admission, EMS record, old EKG, old radiological studies, urgent care reports/EKG's, senior living records)? Report findings @ -No old charts were reviewed Differential Diagnosis (chest pain, altered mental status, abdominal pain women, abdominal pain men, vaginal bleeding, weakness, fever, dyspnea, syncope, hea dache, dizziness, GI bleed, back pain, seizure, CVA, palpatations, mental health, musculoskeletal)? @ -MDM Differential Dyspnea: Coronary syndrome, arrhythmia, tamponade, asthma, COPD, pulmonary embolism, pneumonia, pneumothorax, pulmonary effusion, anaphylaxis, diabetic ketoacidosis, flailed chest, pulmonary contusion, diaphragmatic rupture, anemia, neuromuscular this is not meant to be an all-inclusive list. EKG interpreted by me (3pts min.). @ -EKG shows sinus rhythm ventricular rate 89. OK interval 166. QRS 161. QT 375. QTc 422. Left axis deviation. X-rays interpreted by me (1pt min.). @ -Chest x-ray shows cardiomegaly. Consider incipient congestive heart failure. Presumed subsegmental atelectasis at the left lung base Hip x-ray shows mild osteoarthritic changes about the hip joints. Atherosclerotic disease. CT interpreted by me (1pt min.). @ -None done U/S interpreted by me (1pt. min.). @ -None done What testing was considered but not performed or refused? (CT, X-rays, U/S, labs)? Why? @ -None What meds were considered but not given or refused? Why? @ -None Did you discuss the management of the patient with other professionals (professionals i.e. , PA, DISCIPLINARY HEARING OFFICER, lab, RT, psych nurse, social welfare research worker, warehouse lead, teacher, supervisor dog license officer, block and case maker)? Give summary @ -My attending spoke with Dr. Garcia who accepts admission Was smoking cessation discussed for >3mins.? @ -No Was critical care preformed (if so, how long)? @ -No Were there social determinants of health that impacted care today? How? (Homelessness, low income, unemployed, alcoholism, drug addiction, transportation, low edu. Level, literacy, decrease access to med. care, group home, rehab)? @ -No Was there de-escalation of care discussed even if they declined (Discuss DNR or withdrawal of care, Hospice)? DNR status @ -No What co-morbidities impacted this encounter? (DM, HTN, Smoking, COPD, CAD, Cancer, CVA, ARF, Chemo, Hep., AIDS, mental health diagnosis, sleep apnea, morbid obesity)? @ -None Was patient admitted / discharged? Hospital course, mention meds given and route, prescriptions, significant lab abnormalities, going to OR and other pertinent info. @ -83-year-old female presenting with chief complaint of lower back pain. While obtaining the history it is noted that the patient is quite short of breath and is requiring supplemental oxygen. On exam positive rhonchi are he tejas. X-ray of the hip is negative for fracture or dislocation. Chest x-ray appears consistent with CHF and BNP is positive at 3730. Patient is given 40 mg IV Lasix. She will be admitted for congestive heart failure. Patient is agreeable with this plan. I discussed this case with my attending Dr. Chaidez Undiagnosed new problem with uncertain prognosis? @ -No Drug Therapy requiring intensive monitoring for toxicity (Heparin, Nitro, Insulin, Cardizem)? @ -No Were any procedures done? @ -No Diagnosis/symptom? @ -Congestive heart failure Acute, or Chronic, or Acute on Chronic? @ -Acute Uncomplicated (without systemic symptoms) or Complicated (systemic symptoms)? @ -Complicated Side effects of treatment? @ -No Exacerbation, Progression, or Severe Exacerbation? @ -Exacerbation Poses a threat to life or bodily function? How? (Chest pain, [place], [place], pneumonia, PE, COPD, DKA, ARF, appy, cholecystitis, CVA, Diverticulitis, Homicidal, Suicidal, threat to staff... and all critical care pts) @ -Yes - Lab Data Result diagrams: 08/16/24 01:12 08/16/24 01:12 Lab Results 08/16/24 08/16/24 Range/Units 01:12 01:12 WBC 6.5 (3.8-10.6) k/uL RBC 3.77 L (3.80-5.40) m/uL Hgb 10.8 L (11.4-16.0) gm/dL Hct 33.5 L (34.0-46.0) % MCV 88.8 (80.0-100.0) fL MCH 28.7 (25.0-35.0) pg MCHC 32.4 (31.0-37.0) g/dL RDW 14.9 (11.5-15.5) % Plt Count 262 (150-450) k/uL MPV 7.4 Neutrophils % 91 % Lymphocytes % 7 % Monocytes % 1 % Eosinophils % 1 % Basophils % 0 % Neutrophils # 5.9 (1.3-7.7) k/uL Lymphocytes # 0.4 L (1.0-4.8) k/uL Monocytes # 0.1 (0-1.0) k/uL Eosinophils # 0.1 (0-0.7) k/uL Basophils # 0.0 (0-0.2) k/uL Sodium 139 (137-145) mmol/L Potassium 4.0 (3.5-5.1) mmol/L Chloride 108 H (98-107) mmol/L Carbon Dioxide 26 (22-30) mmol/L Anion Gap 5 mmol/L BUN 22 H (7-17) mg/dL Creatinine 0.64 (0.52-1.04) mg/dL Est GFR (CKD-EPI)AfAm >90 (>60 ml/min/1.73 sqM) Est GFR (CKD-EPI)NonAf 82 (>60 ml/min/1.73 sqM) Glucose 176 H (74-99) mg/dL Calcium 9.4 (8.4-10.2) mg/dL Total Bilirubin 0.4 (0.2-1.3) mg/dL AST 24 (14-36) U/L ALT 17 (4-34) U/L Alkaline Phosphatase 43 (38-126) U/L NT-Pro-B Natriuret Pep 3730 pg/mL Total Protein 5.8 L (6.3-8.2) g/dL Albumin 3.6 (3.5-5.0) g/dL Disposition Clinical Impression: CHF (congestive heart failure) Disposition: ADMITTED IP TO THIS HOSP Condition: Fair Time of Disposition: 05:16
--- NOTE | 2024-08-16 09:59 | P.CRDCN ---
History of Present Illness Consult date: 08/16/24 History of present illness: This is a pleasant 83-year-old female patient with a past medical history significant for CAD with prior stenting of the LAD in 2019 as well as mildly impaired LV function with EF around 45% based on echo in 2019 as well as hypertension and dyslipidemia and diabetes and smoking and COPD. The patient presented to the hospital complaining of hip pain and she is known to have history of sciatica. She mentioned that lately she has been congested and has been experiencing cough not productive of any sputum with no fever and no chills. No symptoms of chest pain or chest discomfort. We consulted see the patient for further evaluation of congestive heart failure with her NT proBNP came in to be elevated in the chest x-ray showed finding consistent with heart failure. Clinically she reports shortness of breath with exertion according to her has not changed compared to before with no pain in the chest concerning for angina and no dizziness or lightheadedness and no feeling of heart racing or fluttering and no presyncope or syncope. Further evaluation was performed including an EKG and that showed sinus mechanism with LBBB. The rest of the blood work overall came in to be unremarkable. The physical examination is remarkable for regular rhythm with a distant heart sounds and soft systolic murmur and bilateral rhonchi noted on examination as well as bilateral lower extremities edema noted as well. Assessment Shortness of breath likely to be a combination of COPD and CHF Coronary artery disease with prior PCI of the LAD Chronic obstructive pulmonary disease Smoking and the patient continues to smoke Multiple comorbid conditions Plan The patient's symptoms are predominantly secondary to COPD Start the patient on IV diuretics with a small dose of Lasix at 20 mg twice daily Obtain an echocardiogram with Doppler Monitor the kidney function and electrolytes Follow-up with the patient Past Medical History Past Medical History: Asthma, COPD, CVA/TIA, Hypertension, Myocardial Infarction ([place]), Osteoarthritis (OA) Additional Past Medical History / Comment(s): History of mild stroke in 1987; hx of osteoporosis, back pain Last Myocardial Infarction Date:: 10-04-19 History of Any Multi-Drug Resistant Organisms: None Reported Past Surgical History: Appendectomy, Heart Catheterization With Stent, Joint Replacement, Orthopedic Surgery, Tubal Ligation Additional Past Surgical History / Comment(s): heart cath w/ stent 10-04-19, rt rotator cuff, [place] cataracts, rt knee replacement Past Anesthesia/Blood Transfusion Reactions: No Reported Reaction Date of Last Stent Placement:: 11/19/19 Past Psychological History: No Psychological Hx Reported Smoking Status: Current every day smoker Past Alcohol Use History: None Reported Past Drug Use History: None Reported - Past Family History Sister(s) Family Medical History: Cancer Additional Family Medical History / Comment(s): ovarian Brother(s) Family Medical History: Deep Vein Thrombosis (DVT) Medications and Allergies Home Medications Medication Instructions Recorded Confirmed Type Aspirin 81 mg PO DAILY #30 chew 10/07/19 08/16/24 Rx Budesonide [Pulmicort] 0.5 mg INHALATION RT-BID 04/22/24 08/16/24 History Metoprolol Succinate (ER) [Toprol 25 mg PO BID 04/22/24 08/16/24 History XL] Vit C/E/Zn/Coppr/Lutein/Zeaxan 1 cap PO BID 04/22/24 08/16/24 History [Preservision Areds 2 Softgel] metFORMIN HCL ER [Glucophage XR] 500 mg PO W/SUPPER 04/22/24 08/16/24 History Meloxicam [Mobic] 15 mg PO DAILY PRN #30 tab 08/10/24 08/16/24 Rx Baclofen 5 mg PO TID PRN 08/16/24 08/16/24 History Cholecalciferol (Vitamin D3) 50 mcg PO DAILY 08/16/24 08/16/24 History [Vitamin D3 (50 Mcg = 2000 Iu)] Gabapentin [Neurontin] 300 mg PO TID 08/16/24 08/16/24 History predniSONE [Deltasone] 10 mg PO DAILY 08/16/24 08/16/24 History traMADol HCL 50 mg PO DAILY PRN 08/16/24 08/16/24 History Allergies Allergy/AdvReac Type Severity Reaction Status Date / Time No Known Allergies Allergy Verified 08/16/24 09:46 Physical Exam Vitals: Vital Signs Temp Pulse Resp BP Pulse Ox 08/16/24 08:07 97 08/16/24 06:00 84 146/90 93 L 08/16/24 04:00 16 132/54 97 08/16/24 02:53 18 08/16/24 02:48 64 16 138/52 96 08/16/24 02:00 64 18 153/78 92 L 08/16/24 00:38 16 149/71 88 L 08/15/24 22:53 89 08/15/24 22:43 88 08/15/24 21:59 98.7 F 80 18 149/71 92 L Intake and Output 08/15/24 08/16/24 08/16/24 22:59 06:59 14:59 Other: Weight 79.832 kg Results 08/16/24 01:12 08/16/24 01:12 Cardiac Enzymes 08/16/24 Range/Units 01:12 AST 24 (14-36) U/L CBC 08/16/24 Range/Units 01:12 WBC 6.5 (3.8-10.6) k/uL RBC 3.77 L (3.80-5.40) m/uL Hgb 10.8 L (11.4-16.0) gm/dL Hct 33.5 L (34.0-46.0) % Plt Count 262 (150-450) k/uL Comprehensive Metabolic Panel 08/16/24 Range/Units 01:12 Sodium 139 (137-145) mmol/L Potassium 4.0 (3.5-5.1) mmol/L Chloride 108 H (98-107) mmol/L Carbon Dioxide 26 (22-30) mmol/L BUN 22 H (7-17) mg/dL Creatinine 0.64 (0.52-1.04) mg/dL Glucose 176 H (74-99) mg/dL Calcium 9.4 (8.4-10.2) mg/dL AST 24 (14-36) U/L ALT 17 (4-34) U/L Alkaline Phosphatase 43 (38-126) U/L Total Protein 5.8 L (6.3-8.2) g/dL Albumin 3.6 (3.5-5.0) g/dL Current Medications Generic Name Dose Route Start Last Admin Trade Name Freq PRN Reason Stop Dose Admin Acetaminophen 650 mg 08/16/24 03:59 Acetaminophen Tab 325 Mg Tab PO Q6HR PRN Mild Pain or Fever > 100.5 Hydrocodone Bitart/Acetaminophen 1 each 08/16/24 03:59 Hydrocodone/Apap 5-325mg 1 Each Tab PO Q4HR PRN Moderate Pain (Scale 4 to 6) Morphine Sulfate 4 mg 08/16/24 03:59 Morphine Sulfate 4 Mg/Ml Syringe IV Q4HR PRN Severe Pain (Scale 7 to 10) Naloxone HCl 0.2 mg 08/16/24 03:59 Naloxone 0.4 Mg/Ml 1 Ml Vial IV Q2M PRN Opioid Reversal Intake and Output 08/15/24 08/16/24 08/16/24 22:59 06:59 14:59 Other: Weight 79.832 kg 08/16/24 01:12 08/16/24 01:12
[2024-08-16] MEDS ORDERED: BACLOFEN 10 MG TAB PO PRN (11:46)
[2024-08-16] MEDS ORDERED: LACTULOSE 20 GM/30 ML CUP PO PRN (11:50)
[2024-08-16] MEDS ORDERED: CALCIUM CARBONATE 500 MG CHEWABLE PO PRN (11:50)
[2024-08-16] MEDS ORDERED: ONDANSETRON 4 MG/2 ML VIAL IVP PRN (11:50)
[2024-08-16] MEDS ORDERED: DEXTROSE 50% SYRINGE 50 ML IVP PRN ×2 (11:52)
[2024-08-16] MEDS: BUDESONIDE 0.5 MG/2 ML NEBU INHALATION SCH (12:04)
[2024-08-16] MEDS: IPRATROPIUM-ALBUTEROL 3 ML NEB INHALATION SCH (12:05)
[2024-08-16] MEDS: NAPROXEN 250 MG TAB PO STA (12:23)
[2024-08-16] MEDS: ACETAMINOPHEN TAB 325 MG TAB PO SCH (12:24)
[2024-08-16] MEDS: ASPIRIN 81 MG PO SCH (12:24)
[2024-08-16] MEDS: NICOTINE 14MG/24HR PATCH TRANSDERM SCH (12:25)
[2024-08-16] MEDS: CYCLOBENZAPRINE 5 MG TAB PO SCH (12:25)
[2024-08-16] MEDS: ENOXAPARIN 40 MG/0.4 ML SYRINGE SQ SCH (12:25)
[2024-08-16] MEDS: METOPROLOL SUCCINATE (ER) 25 MG TAB.ER.24H PO SCH (12:25)
[2024-08-16] MEDS: GABAPENTIN 300 MG CAP PO SCH (12:25)
[2024-08-16] MEDS: FAMOTIDINE 20 MG TAB PO SCH (12:25)
[2024-08-16] MEDS: VIT A,C & E-LUTEIN-MINERALS 1 EACH TAB PO SCH (12:34)
[2024-08-16 13:25] LABS: Glucose,Whole Blood 222 mg/dL (70-110)
[2024-08-16] MEDS: INSULIN ASPART (NovoLOG) 100 UNIT/ML VIAL SQ SCH (13:44)
--- NOTE | 2024-08-16 13:44 | P.HPIM ---
History of Present Illness H&P Date: 08/16/24 Chief Complaint: Worsening sciatica pain This is a pleasant 83-year-old patient who follows with Dr. Kaden Thayer. Medical history includes COPD, hypertension, stroke, osteoporosis, coronary disease stent in 2019 right rotator cuff. Patient is active smoker. Patient been having increasing severe pain starting in the left lower back and going down the left to the ankles. Has been diagnosed with sciatica. Is affecting her movement can barely move. Decreased appetite. Normally has a bowel movement every other day. Because patient smoker she is also been having wheezing. Denies any fever and chills. She says when she takes baclofen it makes her see things. No edema Review of systems: GEN.: [Tired EYES: None HEENT: Decreased hearing NECK: None RESPIRATORY: Some wheezing short of breath CARDIOVASCULAR: No edema GASTROINTESTINAL: None GENITOURINARY: None MUSCULOSKELETAL: As above LYMPHATICS: None HEMATOLOGICAL: None PSYCHIATRY: None NEUROLOGICAL: Trouble walking because of above Social history: Lives alone. Lives at shelter at the [facility]. Smokes half a pack a day for many years. No alcohol. Physical examination: VITAL SIGNS: 98.7, 80, 18, 149 x 71, 88% room air upon presentation GENERAL: [BMI 31.2, reclining bed awake tired. EYES: Pupils equal. Conjunctiva yennifer l. HEENT: External appearance of nose and ears normal, oral cavity grossly normal. NECK: JVD not raised; masses not palpable. HEART: First and second heart sounds are normal; no edema. LUNGS: Respiratory rate increased, decreased breath sounds prolonged expiration wheezing. ABDOMEN: Soft, nontender, liver spleen not palpable, no masses palpable. PSYCH: Alert and oriented x3; mood and affect yennifer l. MUSCULOSKELETAL:No Clubbing/cyanosis;muscles-grossly intact. OA NEUROLOGICAL: Cranial nerves grossly intact; no facial asymmetry, power and sensation grossly intact. LYMPHATICS: No lymph nodes palpable in the axilla and neck INVESTIGATIONS, reviewed in the clinical context: August 16: White count 6.5 hemoglobin 10.8 platelets 262 sodium 139 potassium 4 BUN 22 creatinine 0.64 proBNP 3730 EKG tracing personally reviewed by -mouna baseline. Left Lyle jeanette block pattern. Chest x-ray film personally reviewed by me-cardiomegaly. Fluid in the fissure and prominent vessels. Left hip and pelvis x-ray some DJD changes Assessment plan: -Acute on chronic congestive heart failure exacerbation. EF not known. IV Lasix. Fluid restriction. 2D echo. Cardiology consulted. -Acute COPD exacerbation in a current smoker DuoNeb. Nebulized Pulmicort -Chronic nicotine dependence cigarette smoker Nicotine patch -Acute on chronic exacerbation of left-sided sciatica. Naproxen to 50 mg twice daily. Scheduled Tylenol 650 mg 4 times daily. Neurontin scheduled Flexeril 5 mg 4 times daily. Heating pad. -Primary osteoarthritis Pain medication as needed -Diabetes mellitus type 2 on oral hypoglycemic Follow Accu-Cheks -Full code, per patient Care was discussed with patient. Questions answered. Cardiology consulted. Past Medical History Past Medical History: Asthma, COPD, CVA/TIA, Hypertension, Myocardial Infarction ([place]), Osteoarthritis (OA) Additional Past Medical History / Comment(s): History of mild stroke in 1987; hx of osteoporosis, back pain Last Myocardial Infarction Date:: 10-04-19 History of Any Multi-Drug Resistant Organisms: None Reported Past Surgical History: Appendectomy, Heart Catheterization With Stent, Joint Replacement, Orthopedic Surgery, Tubal Ligation Additional Past Surgical History / Comment(s): heart cath w/ stent 10-04-19, rt rotator cuff, [place] cataracts, rt knee replacement Past Anesthesia/Blood Transfusion Reactions: No Reported Reaction Date of Last Stent Placement:: 11/19/19 Past Psychological History: No Psychological Hx Reported Smoking Status: Current every day smoker Past Alcohol Use History: None Reported Past Drug Use History: None Reported - Past Family History Sister(s) Family Medical History: Cancer Additional Family Medical History / Comment(s): ovarian Brother(s) Family Medical History: Deep Vein Thrombosis (DVT) Medications and Allergies Home Medications Medication Instructions Recorded Confirmed Type Aspirin 81 mg PO DAILY #30 chew 10/07/19 08/16/24 Rx Budesonide [Pulmicort] 0.5 mg INHALATION RT-BID 04/22/24 08/16/24 History Metoprolol Succinate (ER) [Toprol 25 mg PO BID 04/22/24 08/16/24 History XL] Vit C/E/Zn/Coppr/Lutein/Zeaxan 1 cap PO BID 04/22/24 08/16/24 History [Preservision Areds 2 Softgel] metFORMIN HCL ER [Glucophage XR] 500 mg PO W/SUPPER 04/22/24 08/16/24 History Meloxicam [Mobic] 15 mg PO DAILY PRN #30 tab 08/10/24 08/16/24 Rx Baclofen 5 mg PO TID PRN 08/16/24 08/16/24 History Cholecalciferol (Vitamin D3) 50 mcg PO DAILY 08/16/24 08/16/24 History [Vitamin D3 (50 Mcg = 2000 Iu)] Gabapentin [Neurontin] 300 mg PO TID 08/16/24 08/16/24 History predniSONE [Deltasone] 10 mg PO DAILY 08/16/24 08/16/24 History traMADol HCL 50 mg PO DAILY PRN 08/16/24 08/16/24 History Allergies Allergy/AdvReac Type Severity Reaction Status Date / Time No Known Allergies Allergy Verified 08/16/24 09:46 Physical Exam Vitals: Vital Signs Temp Pulse Resp BP Pulse Ox 08/16/24 08:07 97 08/16/24 06:00 84 146/90 93 L 08/16/24 04:00 16 132/54 97 08/16/24 02:53 18 08/16/24 02:48 64 16 138/52 96 08/16/24 02:00 64 18 153/78 92 L 08/16/24 00:38 16 149/71 88 L 08/15/24 22:53 89 08/15/24 22:43 88 08/15/24 21:59 98.7 F 80 18 149/71 92 L Intake and Output 08/15/24 08/16/24 08/16/24 22:59 06:59 14:59 Other: Weight 79.832 kg Results CBC & Chem 7: 08/16/24 01:12 08/16/24 01:12 Labs: Abnormal Lab Results - Last 24 Hours (Table) 08/16/24 08/16/24 Range/Units 01:12 01:12 RBC 3.77 L (3.80-5.40) m/uL Hgb 10.8 L (11.4-16.0) gm/dL Hct 33.5 L (34.0-46.0) % Lymphocytes # 0.4 L (1.0-4.8) k/uL Chloride 108 H (98-107) mmol/L BUN 22 H (7-17) mg/dL Glucose 176 H (74-99) mg/dL Total Protein 5.8 L (6.3-8.2) g/dL
[2024-08-16] MEDS: traMADol 50 MG TAB PO SCH (13:45)
[2024-08-16] MEDS: methylPREDNISolone SOD SUCCI 40 MG/ML 1 ML VIAL IV SCH (17:45)
[2024-08-16] MEDS: metFORMIN 500 MG TAB PO SCH (17:49)
[2024-08-16 18:06] LABS: Glucose,Whole Blood 163 mg/dL (70-110)
[2024-08-16] MEDS: FUROSEMIDE 10 MG/ML 2 ML VIAL IV SCH (21:48)
[2024-08-16] MEDS: NAPROXEN 250 MG TAB PO SCH (21:49)
[2024-08-17 08:01] LABS: African American GFR (CKD) 73 (>60 ml/min/1.73 sqM); Anion Gap 7 mmol/L; Blood Urea Nitrogen 34 mg/dL (7-17); Calcium 9.7 mg/dL (8.4-10.2); Carbon Dioxide 28 mmol/L (22-30); Chloride 100 mmol/L (98-107); Glucose 159 mg/dL (74-99); Non-African American GFR(CKD) 63 (>60 ml/min/1.73 sqM); Potassium 4.9 mmol/L (3.5-5.1); Sodium 135 mmol/L (137-145)
[2024-08-17 08:27] LABS: Glucose,Whole Blood 154 mg/dL (70-110)
[2024-08-17] MEDS: CHOLECALCIFEROL 25 MCG (1000 IU) TABLET PO SCH (08:55)
[2024-08-17] MEDS ORDERED: FUROSEMIDE 20 MG TAB PO SCH (09:15)
[2024-08-17] MEDS: LOSARTAN 25 MG TAB PO SCH (10:26)
[2024-08-17 12:15] LABS: Glucose,Whole Blood 123 mg/dL (70-110)
--- NOTE | 2024-08-17 12:41 | P.PN ---
Subjective HISTORY OF PRESENT ILLNESS: 08/16/2024 This is a pleasant 83-year-old female patient with a past medical history significant for CAD with prior stenting of the LAD in 2019 as well as mildly impaired LV function with EF around 45% based on echo in 2019 as well as hypertension and dyslipidemia and diabetes and smoking and COPD. The patient presented to the hospital complaining of hip pain and she is known to have history of sciatica. She mentioned that lately she has been congested and has been experiencing cough not productive of any sputum with no fever and no chills. No symptoms of chest pain or chest discomfort. We consulted see the patient for further evaluation of congestive heart failure with her NT proBNP came in to be elevated in the chest x-ray showed finding consistent with heart failure. Clinically she reports shortness of breath with exertion according to her has not changed compared to before with no pain in the chest concerning for angina and no dizziness or lightheadedness and no feeling of heart racing or fluttering and no presyncope or syncope. Further evaluation was performed including an EKG and that showed sinus mechanism with LBBB. The rest of the blood work overall came in to be unremarkable. The physical examination is remarkable for regular rhythm with a distant heart sounds and soft systolic mu rmur and bilateral rhonchi noted on examination as well as bilateral lower extremities edema noted as well. Patient examined this morning in the emergency room. Patient denies any chest pain or pressure. She continues to report shortness of breath although improving. She remains on IV diuretics. Kidney function stable. Blood pressure slightly elevated with a systolic in the [id number]. PHYSICAL EXAM: VITAL SIGNS: Reviewed. GENERAL: Well-developed in no acute distress. NECK: Supple. No JVD or thyromegaly LUNGS: Respirations even and unlabored. Lungs with wheezing and decreased air exchange noted HEART: Regular rate and rhythm. S1 and S2 heard. EXTREMITIES: Normal range of motion. No clubbing or cyanosis. Peripheral pulses intact. No lower extremity edema ASSESSMENT: Shortness of breath Acute exacerbation of COPD Acute on chronic heart failure with mildly reduced EF, 45-50% in 2019, repeat echo pending CAD with previous stenting, most recently to mid LAD in 2019 Hypertension, currently uncontrolled with systolic blood pressures 150s 160s Hyperlipidemia Diabetes, hemoglobin A1c 6.5 Nicotine dependence PLAN: 2D echo obtained. Await results. Add losartan 25 mg daily for optimal blood pressure control Add atorvastatin 40 mg at night Discontinue IV Lasix. Begin oral Lasix 20 mg daily Further recommendations pending patient course Nurse practitioner note has been reviewed by physician. Signing provider agrees with the documented findings, assessment, and plan of care documented by TICKET MANAGER as a scribe. Objective - Vital Signs Vital signs: Vital Signs Temp 98.7 F 08/15/24 21:59 Pulse 72 08/17/24 12:22 Resp 18 08/17/24 12:22 BP 152/66 08/17/24 12:22 Pulse Ox 94 L 08/17/24 12:22 FiO2 - Labs CBC & Chem 7: 08/16/24 01:12 08/17/24 07:02 Labs: Abnormal Lab Results - Last 24 Hours (Table) 08/16/24 08/16/24 08/17/24 Range/Units 13:24 17:57 07:02 Sodium (137-145) mmol/L BUN (7-17) mg/dL Glucose (74-99) mg/dL POC Glucose (mg/dL) 222 H 163 H (70-110) mg/dL Hemoglobin A1c 6.5 H (<=6.0) % 08/17/24 08/17/24 08/17/24 Range/Units 07:02 08:26 12:13 Sodium 135 L (137-145) mmol/L BUN 34 H (7-17) mg/dL Glucose 159 H (74-99) mg/dL POC Glucose (mg/dL) 154 H 123 H (70-110) mg/dL Hemoglobin A1c (<=6.0) %
--- NOTE | 2024-08-17 13:17 | CT ---
EXAMINATION TYPE: CT lumbar spine wo con DATE OF EXAM: 08/17/2024 COMPARISON: 03/26/2022 HISTORY: 83-year-old female lower back pain rad leg L TECHNIQUE: Contiguous axial scanning of the lumbar spine without IV contrast. Coronal and sagittal re constructions performed. CT DLP: 702.4 mGycm Automated exposure control for dose reduction was used. FINDINGS: There is diffuse osteopenia. Degenerative bony ecchymosis right SI joint and mild degenerative changes left SI joint. Right renal cortical cyst measuring 2.3 cm. Vertebral body heights are preserved. Alignment is maintained. [id number] facet arthropathy mid to lower lumbar spine. Mild multilevel degenerative disc disease with bulging discs, greatest at L3-S1 levels. Corresponding ligamentum flavum thickening lower lumbar spine. Combination of diffuse disc bulge and ligamentum flavum thickening may contribute to a focal moderate spinal canal stenosis at L4-L5, sagittal image 35 and axial image 58. Mild L3-L4. No high-grade canal compromise is seen. On the left, changes resulting moderate to severe neuroforaminal stenosis at L4-L5, moderate at L3-L4 , and mild at L5-S1. On the right, changes result in severe neuroforaminal stenosis at L4-L5, moderate at L3-L4, and mild to moderate at L5-S1. IMPRESSION: 1. MILD DEGENERATIVE DISC DISEASE ESPECIALLY MID TO LOWER LUMBAR SPINE ALONG WITH LIGAMENTUM FLAVUM T HICKENING IN THE LOWER LUMBAR SPINE AND [id number] FACET ARTHROPATHY. 2. NO VERTEBRAL COMPRESSION COLLAPSE OR MALALIGNMENT. 3. COMBINATION OF BULGING DISC AND LIGAMENTUM FLAVUM THICKENING MAY CONTRIBUTE TO MODERATE FOCAL SPIN AL CANAL STENOSIS AT L4-L5. MILD AT L3-L4. 4. CHANGES RESULT IN SEVERE RIGHT AND MODERATE TO SEVERE LEFT NEUROFORAMINAL STENOSIS AT L4-L5. MODER ATE ON BOTH SIDES AT L3-L4 AND MILD AT L5-S1, RIGHT GREATER THAN LEFT. [facility], , 08/17/2024 1:14 PM
[2024-08-17 16:48] LABS: Glucose,Whole Blood 160 mg/dL (70-110)
--- NOTE | 2024-08-17 18:23 | CA ---
Transthoracic Echo Report Name: Sonja Lizarraga Age: 83 Gender: F : 1940 Exam Date: 08/17/2024 14:01 Exam Location: [place] [facility] Ht (in): 63 Wt (lb): 176 Ordering Physician: Sandip Cramer MD ([id number]) Attending/Referring Phys: Nascar Racer Hannah Jorgensen RDCS Procedure CPT: Indications: chf Cardiac Hx: Technical Quality: Technically difficult study Contrast 1: Definity Total Dose (mL): 2 Contrast 2: Total Dose (mL): MEASUREMENTS (Male / Female) Normal Values 2D ECHO LV Diastolic Diameter PLAX 5.7 cm 4.2 - 5.9 / 3.9 - 5.3 cm LV Systolic Diameter PLAX 4.3 cm IVS Diastolic Thickness 1.0 cm 0.6 - 1.0 / 0.6 - 0.9 cm LVPW Diastolic Thickness 1.0 cm 0.6 - 1.0 / 0.6 - 0.9 cm LV Relative Wall Thickness 0.4 LVOT Diameter 2.0 cm LV Diastolic Volume MOD BP 162.1 cm??? 67 - 155 / 56 - 104 cm??? LV Systolic Volume MOD BP 107.5 cm??? 22 - 58 / 19 - 49 cm??? LV Ejection Fraction MOD BP 33.7 % >= 55 % LV Cardiac Index MOD BP 2024.7 cm???/min???m??? LV Diastolic Volume MOD 4C 164.4 cm??? LV Systolic Volume MOD 4C 109.6 cm??? LV Ejection Fraction MOD 4C 33.3 % LV Cardiac Index MOD 4C 2033.5 cm???/min???m??? LV Diastolic Length 4C 9.0 cm LV Systolic Length 4C 7.7 cm LV Diastolic Volume MOD 2C 153.5 cm??? LV Systolic Volume MOD 2C 97.4 cm??? LV Ejection Fraction MOD 2C 36.6 % LV Cardiac Index MOD 2C 2084.1 cm???/min???m??? LV Diastolic Length 2C 8.7 cm LV Systolic Length 2C 7.7 cm LA Volume 73.1 cm??? 18 - 58 / 22 - 52 cm??? LA Volume Index 38.2 cm???/m??? 16 - 28 cm???/m??? Ascending Aorta Diameter 3.7 cm DOPPLER AV Peak Velocity 172.6 cm/s AV Peak Gradient 11.9 mmHg AV Mean Velocity 113.6 cm/s AV Mean Gradient 5.9 mmHg AV Velocity Time Integral 34.4 cm LVOT Peak Velocity 112.2 cm/s LVOT Peak Gradient 5.0 mmHg LVOT Velocity Time Integral 21.0 cm LVOT Stroke Volume 63.9 cm??? LVOT Stroke Volume Index 34.9 ml/m??? LVOT Cardiac Index 2370.1 cm???/min???m??? AV Area Cont Eq vti 1.9 cm??? AV Area Cont Eq pk 2.0 cm??? MV Peak Velocity 131.4 cm/s MV Peak Gradient 6.9 mmHg MV Mean Velocity 74.0 cm/s MV Mean Gradient 2.5 mmHg MV Velocity Time Integral 24.1 cm MV Area PHT 4.3 cm??? Mitral E Point Velocity 70.4 cm/s Mitral A Point Velocity 106.5 cm/s Mitral E to A Ratio 0.7 MV Deceleration Time 176.5 ms PV Peak Velocity 93.9 cm/s PV Peak Gradient 3.5 mmHg FINDINGS Left Ventricle Left ventricular ejection fraction is estimated at 30-35 %. Mildly increased septal wall thickness. Mildly increased posterior wall thickness. Mildly increased left ventricular diastolic diameter. Severely increased left ventricular diastolic volume. Severely increased left ventricular systolic volume. Moderately decreased left ventricular ejection fraction with regional variability. Right Ventricle Normal right ventricular size and function. Unable to estimate the right ventricular systolic pressure. Right Atrium Normal right atrial size. Left Atrium Moderately increased left atrial volume. Mitral Valve Mitral valve thickened. No evidence for mitral valve prolapse. Mild mitral stenosis. Mild mitral regurgitation. Aortic Valve Trileaflet aortic valve. No aortic valve stenosis or regurgitation. Tricuspid Valve Structurally normal tricuspid valve. No tricuspid stenosis. No tricuspid regurgitation. Pulmonic Valve Pulmonic valve not well visualized. No pulmonic stenosis. Trace pulmonic regurgitation. Pericardium No pericardial effusion. Prominent epicardial fat. Aorta Normal size aortic root and proximal ascending aorta. CONCLUSIONS Diagnosis: Acute CHF exacerbation Reduced LV systolic function with increased LV mass ejection fraction 30 to 35% Moderate left atrial enlargement Previewed by: Dr. Fili Antonio MD (Electronically Signed) Final Date: 17 August 2024 18:22
--- NOTE | 2024-08-17 19:29 | P.PN ---
Progress Note - Text Progress Note Date: 08/17/24 Chief Complaint: Worsening sciatica pain This is a pleasant 83-year-old patient who follows with Dr. Kaden Thayer. Medical history includes COPD, hypertension, stroke, osteoporosis, coronary disease stent in 2019 right rotator cuff. Patient is active smoker. Patient been having increasing severe pain starting in the left lower back and going down the left to the ankles. Has been diagnosed with sciatica. Is affecting her movement can barely move. Decreased appetite. Normally has a bowel movement every other day. Because patient smoker she is also been having wheezing. Denies any fever and chills. She says when she takes baclofen it makes her see things. No edema August 17: P admitted with CHF and COPD exacerbation. Better with Lasix and bronchodilators. Steroids. Also significant lumbar radiculopathy down the legs. Patient was put on Solu-Medrol, Flexeril, Tylenol. Pain is better. But worse with walking. CT scan was ordered this afternoon that showed bulging disc and some ligamentum flavum thickening that may contribute of moderate focal spinal canal stenosis at L4-L5 and L3-L4. And significant neural foraminal stenosis L4-L5 on both sides. Consultation to Dr. Marin from pain management was done for possible steroid injection. And also to orthopedic spine. This was discussed with the patient. Patient not seen any orthopedic should prior. Active Medications Acetaminophen (Acetaminophen Tab 325 Mg Tab) 650 mg PO Q6HR [facility] Last Admin: 08/17/24 18:56 Dose: 650 mg Hydrocodone Bitart/Acetaminophen (Hydrocodone/Apap 5-325mg 1 Each Tab) 1 each PO Q4HR PRN PRN Reason: Moderate Pain (Scale 4 to 6) Albuterol/Ipratropium (Ipratropium-Albuterol 3 Ml Neb) 3 ml INHALATION RT-QID [facility] Last Admin: 08/17/24 15:05 Dose: 3 ml Alprazolam (Alprazolam 0.25 Mg Tab) 0.25 mg PO Q6HR PRN PRN Reason: Anxiety Aspirin (Aspirin 81 Mg) 81 mg PO DAILY [facility] Last Admin: 08/17/24 08:55 Dose: 81 mg Atorvastatin Calcium (Atorvastatin 40 Mg Tab) 40 mg PO HS [facility] Budesonide (Budesonide 0.5 Mg/2 Ml Nebu) 0.5 mg INHALATION RT-BID [facility] Last Admin: 08/17/24 08:42 Dose: 0.5 mg Calcium Carbonate/Glycine (Calcium Carbonate 500 Mg Chewable) 1,000 mg PO Q4HR PRN PRN Reason: Dyspepsia Cholecalciferol (Cholecalciferol 25 Mcg (1000 Iu) Tablet) 50 mcg PO DAILY [facility] Last Admin: 08/17/24 08:55 Dose: 50 mcg Cyclobenzaprine HCl (Cyclobenzaprine 5 Mg Tab) 5 mg PO TID [facility] Last Admin: 08/17/24 15:22 Dose: 5 mg Dextrose/Water (Dextrose 50% Syringe 50 Ml) 25 ml IVP PER PROTOCOL PRN; Protocol PRN Reason: Hypoglycemia Dextrose/Water (Dextrose 50% Syringe 50 Ml) 50 ml IVP PER PROTOCOL PRN; Protocol PRN Reason: Hypoglycemia Enoxaparin Sodium (Enoxaparin 40 Mg/0.4 Ml Syringe) 40 mg SQ DAILY [facility] Last Admin: 08/17/24 09:00 Dose: 40 mg Famotidine (Famotidine 20 Mg Tab) 20 mg PO DAILY [facility] Furosemide (Furosemide 20 Mg Tab) 20 mg PO DAILY [facility] Gabapentin (Gabapentin 300 Mg Cap) 300 mg PO TID [facility] Last Admin: 08/17/24 15:22 Dose: 300 mg Insulin Aspart (Insulin Aspart (Novolog) 100 Unit/Ml Vial) 0 unit SQ AC-TID [facility]; Protocol Last Admin: 08/17/24 16:53 Dose: 2 unit Lactulose (Lactulose 20 Gm/30 Ml Cup) 20 gm PO DAILY PRN PRN Reason: Constipation Losartan Potassium (Losartan 25 Mg Tab) 25 mg PO DAILY [facility] Last Admin: 08/17/24 10:26 Dose: 25 mg Melatonin (Melatonin 3 Mg Tablet) 3 mg PO HS PRN PRN Reason: Insomnia Metformin HCl (Metformin 500 Mg Tab) 250 mg PO BID-W/MEALS [facility] Last Admin: 08/17/24 16:53 Dose: 250 mg Methylprednisolone Sodium Succinate (Methylprednisolone Sod Succi 40 Mg/Ml 1 Ml Vial) 40 mg IV Q12HR [facility] Last Admin: 08/17/24 09:00 Dose: 40 mg Metoprolol Succinate (Metoprolol Succinate (Er) 25 Mg Tab.Er.24h) 25 mg PO BID [facility] Last Admin: 08/17/24 08:56 Dose: 25 mg Multivitamins/Minerals (Vit A,C & D-Nygzin-Fqvpcerz 1 Each Tab) 1 each PO BID [facility] Last Admin: 08/17/24 08:59 Dose: 1 each Naloxone HCl (Naloxone 0.4 Mg/Ml 1 Ml Vial) 0.2 mg IV Q2M PRN PRN Reason: Opioid Reversal Naproxen (Naproxen 250 Mg Tab) 250 mg PO BID [facility] Last Admin: 08/17/24 09:03 Dose: 250 mg Nicotine (Nicotine 14mg/24hr Patch) 1 patch TRANSDERM DAILY [facility] Last Admin: 08/17/24 10:26 Dose: 1 patch Ondansetron HCl (Ondansetron 4 Mg/2 Ml Vial) 4 mg IVP Q8HR PRN PRN Reason: Nausea And Vomiting Tramadol HCl (Tramadol 50 Mg Tab) 50 mg PO QID [facility] Last Admin: 08/17/24 18:56 Dose: 50 mg Social history: Lives alone. Lives [facility] at the [facility]. Smokes half a pack a day for many years. No alcohol. Physical examination: VITAL SIGNS: 98.2, 68, 18, 151 x 76, 93% room air GENERAL: Laying in bed, breathing better EYES: Pupils equal. Conjunctiva yennifer l. HEENT: External appearance of nose and ears normal, oral cavity grossly normal. NECK: JVD not raised; masses not palpable. HEART: First and second heart sounds are normal; no edema. LUNGS: Respiratory rate increased, decreased breath sounds, decreased wheezing ABDOMEN: Soft, nontender, liver spleen not palpable, no masses palpable. PSYCH: Alert and oriented x3; mood and affect yennifer l. MUSCULOSKELETAL:No Clubbing/cyanosis;muscles-grossly intact. OA INVESTIGATIONS, reviewed in the clinical context: CT lumbar spine without contrast: Combination of bulging disc and ligamentum flavum thickening may contribute to moderate focal spinal stenosis at L4-L5. Severe right and moderate to severe left neural aminal foraminal at L4-L5 and m oderate both at L3-L4. 2D echocardiogram: EF 30-35%. August 17: Potassium 4.9 creatinine 0.85 August 16: White count 6.5 hemoglobin 10.8 platelets 262 sodium 139 potassium 4 BUN 22 creatinine 0.64 proBNP 3730 EKG tracing personally reviewed by me-shasathya baseline. Left Lyle jeanette block pattern. Chest x-ray film personally reviewed by me-cardiomegaly. Fluid in the fissure and prominent vessels. Left hip and pelvis x-ray some DJD changes Assessment plan: -Acute on chronic congestive heart failure exacerbation. Systolic dysfunction EF 30-35% IV Lasix. Now changed over to oral Lasix 20 mg. Add Aldactone 12.5 mg p.o. On Cozaar Cardiology following -Acute COPD exacerbation in a current smoker DuoNeb. Nebulized Pulmicort. IV Solu-Medrol 40 mg every 12 -Chronic nicotine dependence cigarette smoker Nicotine patch -Acute on chronic exacerbation of left-sided lumbar radiculopathy especially on the left side.: Not improving CT scan lumbar spine: d.Combination of bulging disc and ligamentum flavum thickening may contribute to moderate focal spinal stenosis at L4-L5. Severe right and moderate to severe left neural aminal foraminal at L4-L5 and moderate both at L3-L4. Naproxen to 250 mg twice daily. Scheduled Tylenol 650 mg 4 times daily. Neurontin scheduled Flexeril 5 mg 4 times daily. Heating pad. Consultation to orthopedics and pain management for possible steroid injection -Primary osteoarthritis Pain medication as needed -Diabetes mellitus type 2 on oral hypoglycemic Follow Accu-Cheks -Full code Discussed. Consult pain management and orthopedics. Changed to oral prednisone Past Medical History Past Medical History: Asthma, COPD, CVA/TIA, Hypertension, Myocardial Infarction (MD), Osteoarthritis (OA) Additional Past Medical History / Comment(s): History of mild stroke in 1987; hx of osteoporosis, back pain Last Myocardial Infarction Date:: 10-04-19 History of Any Multi-Drug Resistant Organisms: None Reported Past Surgical History: Appendectomy, Heart Catheterization With Stent, Joint Replacement, Orthopedic Surgery, Tubal Ligation Additional Past Surgical History / Comment(s): heart cath w/ stent 10-04-19, rt rotator cuff, [place] cataracts, rt knee replacement Past Anesthesia/Blood Transfusion Reactions: No Reported Reaction Date of Last Stent Placement:: 11/19/19 Past Psychological History: No Psychological Hx Reported Smoking Status: Current every day smoker Past Alcohol Use History: None Reported Past Drug Use History: None Reported
[2024-08-17] MEDS: ATORVASTATIN 40 MG TAB PO SCH (21:13)
[2024-08-17] MEDS: predniSONE 20 MG TAB PO SCH (21:15)
[2024-08-17 21:23] LABS: Glucose,Whole Blood 144 mg/dL (70-110)
[2024-08-17] MEDS: NICOTINE 21MG/24HR PATCH TRANSDERM SCH (21:45)
[2024-08-17] MEDS: MELATONIN 3 MG TABLET PO PRN (22:19)
[2024-08-17] MEDS: ALPRAZolam 0.25 MG TAB PO PRN (22:20)
[2024-08-18 06:24] LABS: Glucose,Whole Blood 162 mg/dL (70-110)
[2024-08-18 07:14] LABS: Basophils % (A) 0 %; Eosinophils % (A) 0 %; HCT 32.9 % (34.0-46.0); HGB 10.7 gm/dL (11.4-16.0); Lymphocytes # (A) 0.7 k/uL (1.0-4.8); Lymphocytes % (A) 7 %; MCH 28.8 pg (25.0-35.0); MCHC 32.4 g/dL (31.0-37.0); MCV 88.9 fL (80.0-100.0); Mean Platelet Volume 7.4; Monocytes # (A) 0.3 k/uL (0-1.0); Monocytes % (A) 3 %; Neutrophils # (A) 8.9 k/uL (1.3-7.7); Neutrophils % (A) 90 %; Platelet Count 301 k/uL (150-450); RDW 15.1 % (11.5-15.5); WBC 9.9 k/uL (3.8-10.6)
[2024-08-18 07:25] LABS: African American GFR (CKD) 62 (>60 ml/min/1.73 sqM); Anion Gap 4 mmol/L; Blood Urea Nitrogen 47 mg/dL (7-17); Calcium 9.7 mg/dL (8.4-10.2); Carbon Dioxide 30 mmol/L (22-30); Chloride 99 mmol/L (98-107); Glucose 139 mg/dL (74-99); Non-African American GFR(CKD) 54 (>60 ml/min/1.73 sqM); Potassium 4.8 mmol/L (3.5-5.1); Sodium 133 mmol/L (137-145)
[2024-08-18] MEDS: SPIRONOLACTONE 25 MG TAB PO SCH (08:41)
[2024-08-18] MEDS: FUROSEMIDE 20 MG TAB PO SCH (08:42)
[2024-08-18] MEDS: FAMOTIDINE 20 MG TAB PO SCH (08:43)
--- NOTE | 2024-08-18 10:22 | P.CNOR ---
History of Present Illness - [facility] Consult date: 08/18/24 Requesting physician: Fortino Garcia Consult reason: other (lumbar radiculopathy) History of present illness: Patient is an 83-year-old female who presented to the hospital with a chief comp laint of lower back pain. Patient is admitted under medicine and consults were placed for cardiology, pain management and orthopedics. Orthopedics has been consulted due to lumbar radiculopathy. Patient was seen at bedside this morning lying the semirecumbent position on 3 S. Patient states she began to have low back pain about 2 weeks ago when she was at home. Patient denies any falls/traumas. Patient cannot recall what she was doing when the sciatica-like pain started. Patient states she does live at home alone and normally ambulates with the use of a cane or a walker. Patient says she does have previous history of right rotator cuff surgery performed in 2012, but cannot recall the surgeon. Patient also states she had a right total knee arthroplasty but cannot recall the surgeon or the date of the procedure. Patient states most the pain is located in the low back with radiation into the bilateral buttocks. Patient mentions there is some numbness and tingling that extends down the left leg to about the ankle. Patient says pain medication does help somewhat, however, over the past 2 weeks she has not had much alleviation of symptoms. Patient denies any issues of bowel or bladder control. Patient denies saddle anesthesia. Patient does mention she has had some right shoulder issues over the past week or so as well. Patient denies any specific injuries to this area recently. Patient thinks she may have just slept funny on the shoulder. Patient says she does have good motion and strength still in that arm. CT scan lumbar spine was performed which did reveal lumbar spondylosis as well as some central and neuroforaminal stenosis in the lower lumbar spine. Negative for any fractures or spondylolisthesis. Patient denies any significant chest pain, shortness of breath, nausea, vomiting, change in vision, loss of bowel/bladder control. Past Medical History Past Medical History: Asthma, Heart Failure, COPD, CVA/TIA, Hypertension, Myocardial Infarction ([place]), Osteoarthritis ([place]) Additional Past Medical History / Comment(s): History of mild stroke in 1987; hx of osteoporosis, back pain Last Myocardial Infarction Date:: 10-04-19 History of Any Multi-Drug Resistant Organisms: None Reported Past Surgical History: Appendectomy, Heart Catheterization With Stent, Joint Replacement, Orthopedic Surgery, Tubal Ligation Additional Past Surgical History / Comment(s): heart cath w/ stent 10-04-19, rt rotator cuff, [place] cataracts, rt knee replacement Past Anesthesia/Blood Transfusion Reactions: No Reported Reaction Date of Last Stent Placement:: 11/19/19 Past Psychological History: No Psychological Hx Reported Smoking Status: Current every day smoker Past Alcohol Use History: None Reported Additional Past Alcohol Use History / Comment(s): pt states she smokes 10 ciggarettes per day since she was 16 years old. Past Drug Use History: None Reported - Past Family History Sister(s) Family Medical History: Cancer Additional Family Medical History / Comment(s): ovarian Brother(s) Family Medical History: Deep Vein Thrombosis (DVT) Medications and Allergies Home Medications Medication Instructions Recorded Confirmed Type Aspirin 81 mg PO DAILY #30 chew 10/07/19 08/16/24 Rx Budesonide [Pulmicort] 0.5 mg INHALATION RT-BID 04/22/24 08/16/24 History Metoprolol Succinate (ER) [Toprol 25 mg PO BID 04/22/24 08/16/24 History XL] Vit C/E/Zn/Coppr/Lutein/Zeaxan 1 cap PO BID 04/22/24 08/16/24 History [Preservision Areds 2 Softgel] metFORMIN HCL ER [Glucophage XR] 500 mg PO W/SUPPER 04/22/24 08/16/24 History Meloxicam [Mobic] 15 mg PO DAILY PRN #30 tab 08/10/24 08/16/24 Rx Baclofen 5 mg PO TID PRN 08/16/24 08/16/24 History Cholecalciferol (Vitamin D3) 50 mcg PO DAILY 08/16/24 08/16/24 History [Vitamin D3 (50 Mcg = 2000 Iu)] Gabapentin [Neurontin] 300 mg PO TID 08/16/24 08/16/24 History predniSONE [Deltasone] 10 mg PO DAILY 08/16/24 08/16/24 History traMADol HCL 50 mg PO DAILY PRN 08/16/24 08/16/24 History Allergies Allergy/AdvReac Type Severity Reaction Status Date / Time No Known Allergies Allergy Verified 08/17/24 15:50 Physical Examination Inspection: Negative for any open fractures, significant erythema/ecchymosis/ open wounds. Patient does have scar over right anterior knee evident from previous right total knee arthroplasty. Sensation: Somewhat altered sensation down the posterior left lower extremity due to sciatic symptoms. Sensation is equal, symmetric, and intact throughout the rest of the upper and lower extremities on exam. Palpation: There is some generalized tenderness with patient over the lower lumbar spine at midline and in the bilateral SI joints. Nontender to palpation throughout rest of exam. Range of motion: Patient has good range of motion in the bilateral upper extremities on exam. Patient is able to flex bilateral shoulders to about 130 degrees bilaterally. Abduction to about 90 degrees. Patient has full range of motion throughout bilateral elbows and wrists in flexion/extension. Patient does have good range of motion in bilateral hips and knees in flexion/extension while lying in bed. Motor: 4/5 in all major motor groups in bilateral upper extremities. 4-/5 in res isted flexion/extension in bilateral hips. 4/5 in all other major motor groups in bilateral lower extremities. Neurovascular: Radial pulse intact, 2+ bilaterally. DP pulses palpable bilaterally. Cap refill under 3 seconds in digits of upper extremities. Special test: Negative Lilo bilaterally. Negative clonus bilaterally. Negative Chaka bilaterally. Results - Labs Labs: Abnormal Lab Results - Last 24 Hours (Table) 08/17/24 08/17/24 08/17/24 Range/Units 07:02 12:13 16:35 RBC (3.80-5.40) m/uL Hgb (11.4-16.0) gm/dL Hct (34.0-46.0) % Neutrophils # (1.3-7.7) k/uL Lymphocytes # (1.0-4.8) k/uL Sodium (137-145) mmol/L BUN (7-17) mg/dL Glucose (74-99) mg/dL POC Glucose (mg/dL) 123 H 160 H (70-110) mg/dL Hemoglobin A1c 6.5 H (<=6.0) % 08/17/24 08/18/24 08/18/24 Range/Units 21:21 06:22 06:23 RBC 3.70 L (3.80-5.40) m/uL Hgb 10.7 L (11.4-16.0) gm/dL Hct 32.9 L (34.0-46.0) % Neutrophils # 8.9 H (1.3-7.7) k/uL Lymphocytes # 0.7 L (1.0-4.8) k/uL Sodium (137-145) mmol/L BUN (7-17) mg/dL Glucose (74-99) mg/dL POC Glucose (mg/dL) 144 H 162 H (70-110) mg/dL Hemoglobin A1c (<=6.0) % 08/18/24 Range/Units 06:23 RBC (3.80-5.40) m/uL Hgb (11.4-16.0) gm/dL Hct (34.0-46.0) % Neutrophils # (1.3-7.7) k/uL Lymphocytes # (1.0-4.8) k/uL Sodium 133 L (137-145) mmol/L BUN 47 H (7-17) mg/dL Glucose 139 H (74-99) mg/dL POC Glucose (mg/dL) (70-110) mg/dL Hemoglobin A1c (<=6.0) % H & H 08/16/24 08/18/24 Range/Units 01:12 06:23 Hgb 10.8 L 10.7 L (11.4-16.0) gm/dL Hct 33.5 L 32.9 L (34.0-46.0) % Result Diagrams: 08/18/24 06:23 08/18/24 06:23 - Diagnostic results CT Scan - lumbar: report reviewed, image reviewed (CT scan lumbar spine does show evidence of degenerative disc disease throughout the mid to lower lumbar spine as well as central canal stenosis and neuroforaminal stenosis. Neurofo raminal stenosis moderate to severe at L4-L5. Negative for any spondylolisthesis) Assessment and Plan Assessment: 1. Degenerative disc disease; lumbar spondylosis; central canal and neuroforaminal stenosis; lumbar radiculopathy Plan: 1. Degenerative disc disease; lumbar spondylosis; central canal and neuroforaminal stenosis; lumbar radiculopathy - CT scan lumbar spine does show evidence of degenerative disc disease throughout the mid to lower lumbar spine as well as central canal stenosis and neuroforaminal stenosis. Neuroforaminal stenosis moderate to severe at L4-L5. Negative for any spondylolisthesis. Medicine has consulted pain management for possible epidural steroid injection. I will discuss the findings of the imaging and exam with my attending, Dr. Mathis before proceeding with any potential orthopedic intervention. Not recommending any emergent orthopedic intervention at this time. We will continue conservative measures. Patient may benefit from IV steroids. Patient may weight-bear as tolerated with walker and assistance. PT/OT recommendations. Oral pain medications. We will continue to follow patient during stay in hospital. 2. Appreciate medical, cardio, pain management 3. Pain management -[place]; Tylenol; gabapentin; tramadol 4. DVT prophylaxis -Lovenox; aspirin 5. GI prophylaxis -Tums; Pepcid 6. PT/OT -weightbearing as tolerated with walker and assistance 7. Encourage incentive spirometer use 8. Appreciate consult Time with Patient: Less than 30
[2024-08-18 11:45] LABS: Glucose,Whole Blood 145 mg/dL (70-110)
[2024-08-18] MEDS: DAPAGLIFLOZIN PROPANEDIOL 10 MG TABLET PO SCH (12:11)
--- NOTE | 2024-08-18 14:22 | P.PN ---
Subjective HISTORY OF PRESENT ILLNESS: 08/16/2024 This is a pleasant 83-year-old female patient with a past medical history significant for CAD with prior stenting of the LAD in 2019 as well as mildly impaired LV function with EF around 45% based on echo in 2019 as well as hypertension and dyslipidemia and diabetes and smoking and COPD. The patient presented to the hospital complaining of hip pain and she is known to have history of sciatica. She mentioned that lately she has been congested and has been experiencing cough not productive of any sputum with no fever and no chills. No symptoms of chest pain or chest discomfort. We consulted see the patient for further evaluation of congestive heart failure with her NT proBNP came in to be elevated in the chest x-ray showed finding consistent with heart failure. Clinically she reports shortness of breath with exertion according to her has not changed compared to before with no pain in the chest concerning for angina and no dizziness or lightheadedness and no feeling of heart racing or fluttering and no presyncope or syncope. Further evaluation was performed including an EKG and that showed sinus mechanism with LBBB. The rest of the blood work overall came in to be unremarkable. The physical examination is remarkable for regular rhythm with a distant heart sounds and soft systolic mu rmur and bilateral rhonchi noted on examination as well as bilateral lower extremities edema noted as well. 08/17/2024 Patient examined this morning in the emergency room. Patient denies any chest pain or pressure. She continues to report shortness of breath although improving. She remains on IV diuretics. Kidney function stable. Blood pressure slightly elevated with a systolic in the [id number]. 08/18/2024 Patient examined this morning the bedside. Patient currently denies any chest pain or pressure. She denies any shortness of breath. She does complain of some lower back pain and hip pain. Vital signs are stable. Blood pressure 123/71. Echocardiogram completed revealing ejection fraction 30 to 35%, mild mitral stenosis, mild MR PHYSICAL EXAM: VITAL SIGNS: Reviewed. GENERAL: Well-developed in no acute distress. NECK: Supple. No JVD or thyromegaly LUNGS: Respirations even and unlabored. Lungs diminished. HEART: Regular rate and rhythm. S1 and S2 heard. EXTREMITIES: Normal range of motion. No clubbing or cyanosis. Peripheral pulses intact. No lower extremity edema ASSESSMENT: Shortness of breath Acute exacerbation of COPD Acute on chronic heart failure with reduced EF, 3035% CAD with previous stenting, most recently to mid LAD in 2019 Hypertension, currently uncontrolled with systolic blood pressures 150s 160s, improved Hyperlipidemia Diabetes, hemoglobin A1c 6.5 Nicotine dependence PLAN: Discontinue oral Lasix. Add Farxiga 10 mg daily. Continue with current dose of Aldactone. Patient was not on any diuretics before coming to the hospital. Continue additional cardiac medications Recommend outpatient ischemic evaluation Patient is currently stable from a cardiac standpoint We will sign off. Please reconsult if needed. Nurse practitioner note has been reviewed by physician. Signing provider agrees with the documented findings, assessment, and plan of care documented by [employer] as a scribe. Objective - Vital Signs Vital signs: Vital Signs Temp 97.7 F 08/18/24 11:28 Pulse 63 08/18/24 13:41 Resp 17 08/18/24 13:41 BP 123/71 08/18/24 11:28 Pulse Ox 92 L 08/18/24 11:28 FiO2 Intake & Output 08/17/24 08/18/24 08/18/24 18:59 06:59 18:59 Intake Total 118 Output Total 200 Balance -200 118 Weight 79.832 kg 73.3 kg Intake: Oral 118 Output: Urine 200 Other: Voiding Method Bedside Commode Bedside Commode # Voids 1 2 - Labs CBC & Chem 7: 08/18/24 06:23 08/18/24 06:23 Labs: Abnormal Lab Results - Last 24 Hours (Table) 08/17/24 08/17/24 08/18/24 Range/Units 16:35 21:21 06:22 RBC (3.80-5.40) m/uL Hgb (11.4-16.0) gm/dL Hct (34.0-46.0) % Neutrophils # (1.3-7.7) k/uL Lymphocytes # (1.0-4.8) k/uL Sodium (137-145) mmol/L BUN (7-17) mg/dL Glucose (74-99) mg/dL POC Glucose (mg/dL) 160 H 144 H 162 H (70-110) mg/dL 08/18/24 08/18/24 08/18/24 Range/Units 06:23 06:23 11:44 RBC 3.70 L (3.80-5.40) m/uL Hgb 10.7 L (11.4-16.0) gm/dL Hct 32.9 L (34.0-46.0) % Neutrophils # 8.9 H (1.3-7.7) k/uL Lymphocytes # 0.7 L (1.0-4.8) k/uL Sodium 133 L (137-145) mmol/L BUN 47 H (7-17) mg/dL Glucose 139 H (74-99) mg/dL POC Glucose (mg/dL) 145 H (70-110) mg/dL
[2024-08-18 16:48] LABS: Glucose,Whole Blood 167 mg/dL (70-110)
[2024-08-18 20:46] LABS: Glucose,Whole Blood 172 mg/dL (70-110)
--- NOTE | 2024-08-18 22:11 | P.PN ---
Progress Note - Text Progress Note Date: 08/18/24 Chief Complaint: Worsening sciatica pain This is a pleasant 83-year-old patient who follows with Dr. Kaden Thayer. Medical history includes COPD, hypertension, stroke, osteoporosis, coronary disease stent in 2019 right rotator cuff. Patient is active smoker. Patient been having increasing severe pain starting in the left lower back and going down the left to the ankles. Has been diagnosed with sciatica. Is affecting her movement can barely move. Decreased appetite. Normally has a bowel movement every other day. Because patient smoker she is also been having wheezing. Denies any fever and chills. She says when she takes baclofen it makes her see things. No edema August 17: P admitted with CHF and COPD exacerbation. Better with Lasix and bronchodilators. Steroids. Also significant lumbar radiculopathy down the legs. Patient was put on Solu-Medrol, Flexeril, Tylenol. Pain is better. But worse with walking. CT scan was ordered this afternoon that showed bulging disc and some ligamentum flavum thickening that may contribute of moderate focal spinal canal stenosis at L4-L5 and L3-L4. And significant neural foraminal stenosis L4-L5 on both sides. Consultation to Dr. Marin from pain management was done for possible steroid injection. And also to orthopedic spine. This was discussed with the patient. Patient not seen any orthopedic should prior. August 18: Patient's pain at rest is better. Consult from pain management team for possible steroid injection. Patient tolerating diet. Breathing stable. Active Medications Acetaminophen (Acetaminophen Tab 325 Mg Tab) 650 mg PO Q6HR [facility] Last Admin: 08/18/24 16:57 Dose: 650 mg Hydrocodone Bitart/Acetaminophen (Hydrocodone/Apap 5-325mg 1 Each Tab) 1 each PO Q4HR PRN PRN Reason: Moderate Pain (Scale 4 to 6) Albuterol/Ipratropium (Ipratropium-Albuterol 3 Ml Neb) 3 ml INHALATION RT-QID [facility] Last Admin: 08/18/24 20:07 Dose: 3 ml Alprazolam (Alprazolam 0.25 Mg Tab) 0.25 mg PO Q6HR PRN PRN Reason: Anxiety Last Admin: 08/17/24 22:20 Dose: 0.25 mg Aspirin (Aspirin 81 Mg) 81 mg PO DAILY [facility] Last Admin: 08/18/24 08:43 Dose: 81 mg Atorvastatin Calcium (Atorvastatin 40 Mg Tab) 40 mg PO HS [facility] Last Admin: 08/18/24 20:14 Dose: 40 mg Budesonide (Budesonide 0.5 Mg/2 Ml Nebu) 0.5 mg INHALATION RT-BID [facility] Last Admin: 08/18/24 20:07 Dose: 0.5 mg Calcium Carbonate/Glycine (Calcium Carbonate 500 Mg Chewable) 1,000 mg PO Q4HR PRN PRN Reason: Dyspepsia Cholecalciferol (Cholecalciferol 25 Mcg (1000 Iu) Tablet) 50 mcg PO DAILY [facility] Last Admin: 08/18/24 08:43 Dose: 50 mcg Cyclobenzaprine HCl (Cyclobenzaprine 5 Mg Tab) 5 mg PO TID [facility] Last Admin: 08/18/24 20:17 Dose: 5 mg Dapagliflozin (Dapagliflozin Propanediol 10 Mg Tablet) 10 mg PO DAILY [facility] Last Admin: 08/18/24 12:11 Dose: 10 mg Dextrose/Water (Dextrose 50% Syringe 50 Ml) 25 ml IVP PER PROTOCOL PRN; Protocol PRN Reason: Hypoglycemia Dextrose/Water (Dextrose 50% Syringe 50 Ml) 50 ml IVP PER PROTOCOL PRN; Protocol PRN Reason: Hypoglycemia Enoxaparin Sodium (Enoxaparin 40 Mg/0.4 Ml Syringe) 40 mg SQ DAILY [facility] Last Admin: 08/18/24 08:43 Dose: 40 mg Famotidine (Famotidine 20 Mg Tab) 20 mg PO DAILY [facility] Last Admin: 08/18/24 08:43 Dose: 20 mg Gabapentin (Gabapentin 300 Mg Cap) 300 mg PO TID [facility] Last Admin: 08/18/24 20:14 Dose: 300 mg Insulin Aspart (Insulin Aspart (Novolog) 100 Unit/Ml Vial) 0 unit SQ AC-TID [facility]; Protocol Last Admin: 08/18/24 16:57 Dose: 2 unit Lactulose (Lactulose 20 Gm/30 Ml Cup) 20 gm PO DAILY PRN PRN Reason: Constipation Losartan Potassium (Losartan 25 Mg Tab) 25 mg PO DAILY [facility] Last Admin: 08/18/24 08:42 Dose: 25 mg Melatonin (Melatonin 3 Mg Tablet) 3 mg PO HS PRN PRN Reason: Insomnia Last Admin: 08/18/24 20:17 Dose: 3 mg Metformin HCl (Metformin 500 Mg Tab) 250 mg PO BID-W/MEALS [facility] Last Admin: 08/18/24 16:58 Dose: 250 mg Metoprolol Succinate (Metoprolol Succinate (Er) 25 Mg Tab.Er.24h) 25 mg PO BID [facility] Last Admin: 08/18/24 20:14 Dose: 25 mg Multivitamins/Minerals (Vit A,C & U-Jozajc-Mvjqrasb 1 Each Tab) 1 each PO BID [facility] Last Admin: 08/18/24 08:43 Dose: 1 each Naloxone HCl (Naloxone 0.4 Mg/Ml 1 Ml Vial) 0.2 mg IV Q2M PRN PRN Reason: Opioid Reversal Naproxen (Naproxen 250 Mg Tab) 250 mg PO BID [facility] Last Admin: 08/18/24 20:17 Dose: 250 mg Nicotine (Nicotine 21mg/24hr Patch) 1 patch TRANSDERM DAILY [facility] Last Admin: 08/18/24 08:43 Dose: 1 patch Ondansetron HCl (Ondansetron 4 Mg/2 Ml Vial) 4 mg IVP Q8HR PRN PRN Reason: Nausea And Vomiting Prednisone (Prednisone 20 Mg Tab) 60 mg PO DAILY [facility] Last Admin: 08/18/24 08:42 Dose: 60 mg Spironolactone (Spironolactone 25 Mg Tab) 12.5 mg PO DAILY [facility] Last Admin: 08/18/24 08:41 Dose: 12.5 mg Tramadol HCl (Tramadol 50 Mg Tab) 50 mg PO QID [facility] Last Admin: 08/18/24 20:14 Dose: 50 mg Social history: Lives alone. Lives at senior care at the [facility]. Smokes half a pack a day for many years. No alcohol. Physical examination: VITAL SIGNS: 97.9, 75, 18, 129 x 67, 98% room air GENERAL: Lyle in bed, comfortable EYES: Pupils equal. Conjunctiva yennifer l. HEENT: External appearance of nose and ears normal, oral cavity grossly normal. NECK: JVD not raised; masses not palpable. HEART: First and second heart sounds are normal; no edema. LUNGS: Respiratory rate i normal decreased breath sounds, ABDOMEN: Soft, nontender, liver spleen not palpable, no masses palpable. PSYCH: Alert and oriented x3; mood and affect yennifer l. MUSCULOSKELETAL:No Clubbing/cyanosis;muscles-grossly intact. OA INVESTIGATIONS, reviewed in the clinical context: August 18: White count 9.9 hemoglobin 10.7 potassium [address] lumbar spine without contrast: Combination of bulging disc and ligamentum flavum thickening may contribute to moderate focal spinal stenosis at L4-L5. Severe right and moderate to severe left neural aminal foraminal at L4-L5 and moderate both at L3-L4. 2D echocardiogram: EF 30-35%. August 17: Potassium 4.9 creatinine 0.85 August 16: White count 6.5 hemoglobin 10.8 platelets 262 sodium 139 potassium 4 BUN 22 creatinine 0.64 proBNP 3730 EKG tracing personally reviewed by me-mouna baseline. Left Lyle jeanette block pattern. Chest x-ray film personally reviewed by me-cardiomegaly. Fluid in the fissure and prominent vessels. Left hip and pelvis x-ray some DJD changes Assessment plan: -Acute on chronic congestive heart failure exacerbation. Systolic dysfunction EF 30-35% IV Lasix.-Oral Lasix 20 mg. Aldactone 12.5 mg p.o. On [facility] Cardiology following -Acute COPD exacerbation in a current smoker: Better DuoNeb. Nebulized Pulmicort. IV Solu-Medrol now changed to oral prednisone -Chronic nicotine dependence cigarette smoker Nicotine patch -Acute on chronic exacerbation of left-sided lumbar radiculopathy especially on the left side.: Not improving CT scan lumbar spine: d.Combination of bulging disc and ligamentum flavum thickening may contribute to moderate focal spinal stenosis at L4-L5. Severe right and moderate to severe left neural aminal foraminal at L4-L5 and moderate both at L3-L4. Naproxen to 250 mg twice daily. Scheduled Tylenol 650 mg 4 times daily. Neurontin scheduled Flexeril 5 mg 4 times daily. Heating pad. Seen by Dr. Mathis. Pending input from pain management service and possible steroid local injection -Primary osteoarthritis Pain medication as needed -Diabetes mellitus type 2 on oral hypoglycemic Follow Accu-Cheks -Full code Awaiting input from pain management service for possible steroid injection. Past Medical History Past Medical History: Asthma, COPD, CVA/TIA, Hypertension, Myocardial Infarction ([place]), Osteoarthritis ([place]) Additional Past Medical History / Comment(s): History of mild stroke in 1987; hx of osteoporosis, back pain Last Myocardial Infarction Date:: 10-04-19 History of Any Multi-Drug Resistant Organisms: None Reported Past Surgical History: Appendectomy, Heart Catheterization With Stent, Joint Replacement, Orthopedic Surgery, Tubal Ligation Additional Past Surgical History / Comment(s): heart cath w/ stent 10-04-19, rt rotator cuff, [place] cataracts, rt knee replacement Past Anesthesia/Blood Transfusion Reactions: No Reported Reaction Date of Last Stent Placement:: 11/19/19 Past Psychological History: No Psychological Hx Reported Smoking Status: Current every day smoker Past Alcohol Use History: None Reported Past Drug Use History: None Reported
[2024-08-19 06:30] LABS: Glucose,Whole Blood 140 mg/dL (70-110)
--- NOTE | 2024-08-19 08:24 | P.PN ---
Subjective Progress Note Date: 08/19/24 Principal diagnosis: Lumbar Radiculopathy Patient seen and examined this morning. Patient is sitting up at bedside eating breakfast. She does report continued improvement of her symptoms. She currently reports a sharp pain into her left ankle that radiates into her foot as she is sitting at bedside. She states that her symptoms increase from her left buttock and shoots into the left lower extremity when attempting to bear weight. Informed patient that consult has been placed for PT and OT for evaluation and treatment. Patient verbalizes understanding. Continue to e ncourage patient to increase her activity as tolerated. Pending consult for pain management evaluation for possible epidural injections. We will continue with conservative treatment measures. No acute concerns at this time. Objective - Vital Signs Vital signs: Vital Signs Temp 97.9 F 08/19/24 04:45 Pulse 65 08/19/24 04:45 Resp 18 08/19/24 04:45 BP 147/62 08/19/24 04:45 Pulse Ox 92 L 08/19/24 04:45 FiO2 Intake & Output 08/18/24 08/19/24 08/19/24 18:59 06:59 18:59 Intake Total 236 Output Total 450 800 Balance -214 -800 Intake: Oral 236 Output: Urine 450 800 Other: Voiding Method Bedside Commode Bedside Commode - Exam Physical Examination General: The patient is awake and alert, in no acute distress. Skin: Skin is warm and dry with no obvious rashes or lesions. Eye: Pupils are equal, round and reactive to light, extra-ocular movements are intact; there is normal conjunctiva bilaterally. Neck: The neck is supple, there is no tenderness and ROM intact. Cardiovascular: There is a regular rate and rhythm. No murmur, rub or gallop is appreciated. Respiratory: Respirations are non-labored, breath sounds are equal. Gastrointestinal: Soft, non-distended, non-tender abdomen. Back: There is mild tenderness to palpation in the midline lumbar and buttocks region. There is no obvious deformity . Musculoskeletal: ROM limited secondary to pain and stiffness from surgical procedure. Right: Shoulder abduction 4+/5, elbow flexors 4+/5, wrist dorsiflexors 4+/5, finger abductor 4/5, crutching contractor 4/5, hip flexor 4/5, knee flexor 4/5, ankle dorsiflexor 5/5, ankle plantarflexion 5/5 and extensor hallucis 5/5. Left: Shoulder abduction 4+/5, elbow flexors 4+/5, wrist dorsiflexors 4+/5, finger abductor 4/5, crutching contractor 4/5, hip flexor 4/5, knee flexor 4/5, ankle dorsiflexor 4/5, ankle plantarflexion 4/5 and extensor hallucis 4/5. Neurological: CN 2-12 intact. There are no obvious motor or sensory deficits. Movement and coordination equal and intact. Sensory exam to light touch intact C5-T1 and intact from L2-S1. Reflexes 2/4 in bilateral upper and lower extremities. Negative Hoffmans, babinski, and clonus signs. Psychiatric: Cooperative, appropriate mood & affect, normal judgment. - Labs CBC & Chem 7: 08/18/24 06:23 08/18/24 06:23 Labs: Abnormal Lab Results - Last 24 Hours (Table) 08/18/24 08/18/24 08/18/24 Range/Units 11:44 16:46 20:44 POC Glucose (mg/dL) 145 H 167 H 172 H (70-110) mg/dL 08/19/24 Range/Units 06:29 POC Glucose (mg/dL) 140 H (70-110) mg/dL Assessment and Plan Assessment: Degenerative disc disease Lumbar spondylosis Multilevel central canal and neuroforaminal stenosis Bilateral lower extremity radiculopathy L>R Plan: At this time we do not recommend any emergent/urgent orthopedic surgical intervention. Awaiting consult from pain management for possible epidural injections. We will continue with conservative treatments at this time and follow patient throughout her stay. 2. Appreciate medical management 3. Pain management -continue with current medication regimen 4. Consult placed for PT/OT for evaluation and treatment- weightbearing as tolerated with a walker as needed. 5. Appreciate consult
[2024-08-19] MEDS: predniSONE 50 MG TAB PO SCH (09:00)
[2024-08-19 11:45] LABS: Glucose,Whole Blood 172 mg/dL (70-110)
[2024-08-19 16:59] LABS: Glucose,Whole Blood 180 mg/dL (70-110)
[2024-08-19 17:28] VITALS: RESP 18
[2024-08-19 20:14] LABS: Glucose,Whole Blood 192 mg/dL (70-110)
[2024-08-20 06:19] LABS: Glucose,Whole Blood 105 mg/dL (70-110)
[2024-08-20 11:13] LABS: Glucose,Whole Blood 134 mg/dL (70-110)
[2024-08-20 13:33] VITALS: BP 130/62; PULSE 95; TEMP 98.1
--- NOTE | 2024-08-20 19:54 | P.DS ---
Providers Date of admission: 08/16/24 03:59 Expected date of discharge: 08/19/24 Attending physician: Fortino Garcia Consults: 08/17/24 12:38 Consult Physician Routine Consulting Provider: Mia Marin Consult Reason/Comments: steroid inj pain Do you want consulting provider notified?: Yes 08/17/24 12:40 Consult Physician Routine Consulting Provider: Leno Mathis Consult Reason/Comments: lumbar radiculopathy Do you want consulting provider notified?: Yes Primary care physician: Renzo Flaca [facility] Course: Chief Complaint: Worsening sciatica pain This is a pleasant 83-year-old patient who follows with Dr. Kaden Thayer. Medical history includes COPD, hypertension, stroke, osteoporosis, coronary disease stent in 2019 right rotator cuff. Patient is active smoker. Patient been having increasing severe pain starting in the left lower back and going down the left to the ankles. Has been diagnosed with sciatica. Is affecting her movement can barely move. Decreased appetite. Normally has a bowel movement every other day. Because patient smoker she is also been having wheezing. Denies any fever and chills. She says when she takes baclofen it makes her see things. No edema August 17: P admitted with CHF and COPD exacerbation. Better with Lasix and bronchodilators. Steroids. Also significant lumbar radiculopathy down the legs. Patient was put on Solu-Medrol, Flexeril, Tylenol. Pain is better. But worse with walking. CT scan was ordered this afternoon that showed bulging disc and some ligamentum flavum thickening that may contribute of moderate focal spinal canal stenosis at L4-L5 and L3-L4. And significant neural foraminal stenosis L4-L5 on both sides. Consultation to Dr. Marin from pain management was done for possible steroid injection. And also to orthopedic spine. This was discussed with the patient. Patient not seen any orthopedic should prior. August 18: Patient's pain at rest is better. Consult from pain management team for possible steroid injection. Patient tolerating diet. Breathing stable. August 19: Patient's pain is much better. Pain management team was unable to see the patient. With patient doing well. Being discharged. Later the nurse informed me that family is unable to take her home today. They will be making arrangements for tomorrow morning. Instead of baclofen patient will use Flexeril as needed. Scheduled Tylenol. And continue with steroids. Social history: Lives alone. Lives at skilled nursing at the [facility]. Smokes half a pack a day for many years. No alcohol. Physical examination: VITAL SIGNS: 97, 75, 18, 153 x 74, 92% room air GENERAL: Sitting at the edge of the bed, comfortable EYES: Pupils equal. Conjunctiva yennifer l. HEENT: External appearance of nose and ears normal, oral cavity grossly normal. NECK: JVD not raised; masses not palpable. HEART: First and second heart sounds are normal; no edema. LUNGS: Respiratory rate i normal decreased breath sounds, ABDOMEN: Soft, nontender, liver spleen not palpable, no masses palpable. PSYCH: Alert and oriented x3; mood and affect yennifer l. MUSCULOSKELETAL:No Clubbing/cyanosis;muscles-grossly intact. OA INVESTIGATIONS, reviewed in the clinical context: August 18: White count 9.9 hemoglobin 10.7 potassium 4[address] lumbar spine without contrast: Combination of bulging disc and ligamentum flavum thickening may contribute to moderate focal spinal stenosis at L4-L5. Severe right and moderate to severe left neural aminal foraminal at L4-L5 and moderate both at L3-L4. 2D echocardiogram: EF 30-35%. August 17: Potassium 4.9 creatinine 0.85 August 16: White count 6.5 hemoglobin 10.8 platelets 262 sodium 139 potassium 4 BUN 22 creatinine 0.64 proBNP 3730 EKG tracing personally reviewed by -mouna baseline. Left Lyle jeanette block pattern. Chest x-ray film personally reviewed by me-cardiomegaly. Fluid in the fissure and prominent vessels. Left hip and pelvis x-ray some DJD changes Assessment plan: -Acute on chronic congestive heart failure exacerbation. Systolic dysfunction EF 30-35% IV Lasix.-Oral Lasix 20 mg. Aldactone 12.5 mg p.o. On [facility] Card[facility] following -Acute COPD exacerbation in a current smoker: Better DuoNeb. Nebulized Pulmicort. IV Solu-Medrol now changed to oral prednisone -Chronic nicotine dependence cigarette smoker Nicotine patch -Acute on chronic exacerbation of left-sided lumbar radiculopathy especially on the left side.: Not improving CT scan lumbar spine: d.Combination of bulging disc and ligamentum flavum thickening may contribute to moderate focal spinal stenosis at L4-L5. Severe right and moderate to severe left neural aminal foraminal at L4-L5 and moderate both at L3-L4. Naproxen to 250 mg twice daily. Scheduled Tylenol 650 mg 4 times daily. Neurontin scheduled Flexeril 5 mg 4 times daily. Heating pad. Seen by Dr. Mathis.-Follow-up outpatient -Mild cognitive impairment -Primary osteoarthritis Pain medication as needed -Diabetes mellitus type 2 on oral hypoglycemic Follow Accu-Cheks -Full code Disposition: Home Past Medical History Past Medical History: Asthma, COPD, CVA/TIA, Hypertension, Myocardial Infarction (MT), Osteoarthritis (OA) Additional Past Medical History / Comment(s): History of mild stroke in 1987; hx of osteoporosis, back pain Last Myocardial Infarction Date:: 10-04-19 History of Any Multi-Drug Resistant Organisms: None Reported Past Surgical History: Appendectomy, Heart Catheterization With Stent, Joint Replacement, Orthopedic Surgery, Tubal Ligation Additional Past Surgical History / Comment(s): heart cath w/ stent 10-04-19, rt rotator cuff, [place] cataracts, rt knee replacement Past Anesthesia/Blood Transfusion Reactions: No Reported Reaction Date of Last Stent Placement:: 11/19/19 Past Psychological History: No Psychological Hx Reported Smoking Status: Current every day smoker Past Alcohol Use History: None Reported Past Drug Use History: None Reported Plan - Discharge Summary New Discharge Prescriptions: New Spironolactone [Aldactone] 12.5 mg PO DAILY #30 tab Nicotine 21Mg/24Hr Patch [Habitrol] 1 patch TRANSDERM DAILY #30 patch Atorvastatin [Lipitor] 40 mg PO HS #30 tab Naproxen [Naprosyn] 250 mg PO BID #60 tab Albuterol Sulfate [Albuterol Sulfate Hfa] 1 puff PO Q4-6H #8.5 gm Losartan [Cozaar] 25 mg PO DAILY #30 tab Cyclobenzaprine [Flexeril] 5 mg PO TID PRN #30 tab PRN Reason: Spasms Famotidine [Pepcid] 20 mg PO DAILY #30 tab Acetaminophen Tab [Tylenol] 650 mg PO Q6HR #100 tab Continue Aspirin 81 mg PO DAILY #30 chew metFORMIN HCL ER [Glucophage XR] 500 mg PO W/SUPPER Metoprolol Succinate (ER) [Toprol XL] 25 mg PO BID predniSONE [Deltasone] 10 mg PO DAILY Budesonide [Pulmicort] 0.5 mg INHALATION RT-BID Vit C/E/Zn/Coppr/Lutein/Zeaxan [Preservision Areds 2 Softgel] 1 cap PO BID Gabapentin [Neurontin] 300 mg PO TID Cholecalciferol (Vitamin D3) [Vitamin D3 (50 Mcg = 2000 Iu)] 50 mcg PO DAILY Changed traMADol HCL 50 mg PO TID PRN #30 tab PRN Reason: Pain Discontinued Meloxicam [Mobic] 15 mg PO DAILY PRN #30 tab PRN Reason: Pain Baclofen 5 mg PO TID PRN PRN Reason: Muscle Spasm Discharge Medication List Aspirin 81 mg PO DAILY #30 chew 10/07/19 [Rx] Budesonide [Pulmicort] 0.5 mg INHALATION RT-BID 04/22/24 [History] Metoprolol Succinate (ER) [Toprol XL] 25 mg PO BID 04/22/24 [History] Vit C/E/Zn/Coppr/Lutein/Zeaxan [Preservision Areds 2 Softgel] 1 cap PO BID 04/22/24 [History] metFORMIN HCL ER [Glucophage XR] 500 mg PO W/SUPPER 04/22/24 [History] Cholecalciferol (Vitamin D3) [Vitamin D3 (50 Mcg = 2000 Iu)] 50 mcg PO DAILY 08/16/24 [History] Gabapentin [Neurontin] 300 mg PO TID 08/16/24 [History] predniSONE [Deltasone] 10 mg PO DAILY 08/16/24 [History] Acetaminophen Tab [Tylenol] 650 mg PO Q6HR #100 tab 08/19/24 [Rx] Albuterol Sulfate [Albuterol Sulfate Hfa] 1 puff PO Q4-6H #8.5 gm 08/19/24 [Rx] Atorvastatin [Lipitor] 40 mg PO HS #30 tab 08/19/24 [Rx] Cyclobenzaprine [Flexeril] 5 mg PO TID PRN #30 tab 08/19/24 [Rx] Famotidine [Pepcid] 20 mg PO DAILY #30 tab 08/19/24 [Rx] Losartan [Cozaar] 25 mg PO DAILY #30 tab 08/19/24 [Rx] Naproxen [Naprosyn] 250 mg PO BID #60 tab 08/19/24 [Rx] Nicotine 21Mg/24Hr Patch [Habitrol] 1 patch TRANSDERM DAILY #30 patch 08/19/24 [Rx] Spironolactone [Aldactone] 12.5 mg PO DAILY #30 tab 08/19/24 [Rx] traMADol HCL 50 mg PO TID PRN #30 tab 08/19/24 [Rx] Follow up Appointment(s)/Referral(s): Sandip Cramer MD [STAFF PHYSICIAN] - 1 Week Renzo Thayer MD [Primary Care Provider] - 1 Week Leno Mathis DO [Doctor of Osteopathic Medicine] - As Needed Patient Instructions/Handouts: Heart Failure (DC) Discharge/Stand Alone Forms: Who Do I Call?, Personal Manager Quality Improvement Discharge Disposition: TRANSFER TO SNF/ECF
== END 2024-08-20 14:08 | disposition home or self-care (01) | DRG 291 ==
LOC: EC 21:45 → 3SCARD 08-16 03:59
PROVIDERS: ADMIT Hospitalist; ATTEND Hospitalist
DX: I11.0 Hypertensive heart disease with heart failure (principal); I50.23 Acute on chronic systolic (congestive) heart failure; J44.1 Chronic obstructive pulmonary disease with (acute) exacerbation; M54.50 Low back pain, unspecified; M81.0 Age-related osteoporosis without current pathological fracture; I25.10 Atherosclerotic heart disease of native coronary artery without angina pectoris; M48.061 Spinal stenosis, lumbar region without neurogenic claudication; M47.26 Other spondylosis with radiculopathy, lumbar region; M51.16 Intervertebral disc disorders with radiculopathy, lumbar region; I44.7 Left bundle-branch block, unspecified; M19.91 Primary osteoarthritis, unspecified site; F17.210 Nicotine dependence, cigarettes, uncomplicated; E78.5 Hyperlipidemia, unspecified; E11.9 Type 2 diabetes mellitus without complications; Z96.651 Presence of right artificial knee joint; Z28.310 Unvaccinated for COVID-19; Z95.5 Presence of coronary angioplasty implant and graft; Z86.73 Personal history of transient ischemic attack (TIA), and cerebral infarction without residual deficits; Z79.899 Other long term (current) drug therapy; Z79.84 Long term (current) use of oral hypoglycemic drugs; Z79.82 Long term (current) use of aspirin; Z79.51 Long term (current) use of inhaled steroids; Z79.1 Long term (current) use of non-steroidal anti-inflammatories (NSAID); I25.2 Old myocardial infarction
CPT/HCPCS: 36415; 71046; 72131; 73502; 80048; 80053; 83036; 83880; 85025; 93005; 93306; 94640; 94760; 96372; 96374; 96375; 99285